=== PATIENT | female | born 1995 | race Caucasian/White ===

== ENCOUNTER 2016-07-30 10:41 | Emergency (ER) | payer MEDICARE, MEDICAID ==
--- NOTE | 2016-07-30 10:48 | ER Document Report ---
ED Medical Screen (RME) - General Stated Complaint: ABDOMINAL PAIN Information source: Patient Notes: Patient presents with lower mid abdominal pain for the past 3 days. Patient also reports difficulty with urination. Patient does report some dysuria. Patient additionally reports left lower back pain. hx: PTSD, depression, bipolar, cholecystectomy, asthma I have greeted and performed a rapid initial assessment of this patient. A comprehensive ED assessment and evaluation of the patient, analysis of test results and completion of the medical decision making process will be conducted by additional ED providers. TRAVEL OUTSIDE OF THE [place] IN LAST 30 DAYS: No - Related Data Allergies/Adverse Reactions: bupropion HCl [From Wellbutrin] Allergy (Verified 07/30/16 10:48) VOMITING divalproex sodium [From Depakote] Allergy (Verified 07/30/16 10:48) VOMITING haloperidol [From Haldol] Allergy (Verified 07/30/16 10:48) Distonic Reaction olanzapine [From Zyprexa] Allergy (Verified 07/30/16 10:48) Rash topiramate [From Topamax] Allergy (Verified 07/30/16 10:48) Speech problems, drooling Past Medical History - Social History Family history: Reviewed & Not Pertinent Pulmonary Medical History: Reports: Hx Asthma Denies: Hx Tuberculosis Renal/ Medical History: Reports: Hx Kidney Stones, Hx Ovarian Cysts Musculoskeltal Medical History: Denies Hx Arthritis Psychiatric Medical History: Reports: Hx Anxiety, Hx Bipolar Disorder, Hx Depression, Hx Personality Disorder, Hx Post Traumatic Stress Disorder Past Surgical History: Reports: Hx Section - 04/24/15, Hx Cholecystectomy, Hx Gynecologic Surgery - right ovary removed 09/03/13 - Immunizations Immunizations up to date: Yes Hx Diphtheria, Pertussis, Tetanus Vaccination: Yes - unknown Physical Exam - Vital signs Vitals: Temp Pulse Resp BP Pulse Ox 98.5 F 100 16 124/65 96 07/30/16 10:45 07/30/16 10:45 07/30/16 10:45 07/30/16 10:45 07/30/16 10:45 - Back Back: Tender - left lower back Course - Vital Signs Vital signs: Temp Pulse Resp BP Pulse Ox 98.5 F 100 16 124/65 96 07/30/16 10:45 07/30/16 10:45 07/30/16 10:45 07/30/16 10:45 07/30/16 10:45
[2016-07-30 11:40] LABS: APPEARANCE,URINE CLOUDY
[2016-07-30 11:41] LABS: BILIRUBIN,URINE NEGATIVE (NEGATIVE); GLUCOSE, URINE NEGATIVE (NEGATIVE); KETONES,URINE NEGATIVE (NEGATIVE); LEUKOCYTE ESTERASE,URINE TRACE (NEGATIVE); NITRITE,URINE NEGATIVE (NEGATIVE); PROTEIN,URINE 30 mg/dL (NEGATIVE); URINE SPECIFIC GRAVITY 1.018; UROBILINOGEN,URINE NEGATIVE mg/dL (<2.0)
--- NOTE | 2016-07-30 13:11 | ER Document Report ---
ED GI/ - General Chief Complaint: Lower Abdominal Pain Stated Complaint: ABDOMINAL PAIN Notes: Patient is a 18-year-old female presents emergency Department complaining of 3 days of bilateral lower pelvic pain. Patient states that she does have a history of ovarian cysts as well as kidney stones. She states that initially it felt like if cyst and ruptured but now she states that it feels more like a kidney stone passing. She denies any nausea, vomiting, constipation or diarrhea. Denies any vaginal discharge, vaginal bleeding. Patient denies that she can be because she is in a monogamous relationship with a woman. She does admit to pyuria and occasional hematuria over the past 2 days. Past medical history significant for kidney stones, depression, anxiety, PTSD, bipolar, ovarian cysts Past surgical history significant for right nephrectomy, , cholecystectomy Social history significant for social tobacco use, social alcohol use. Allergies to Depakote, Topamax, Zyprexa and Wellbutrin TRAVEL OUTSIDE OF THE [place] IN LAST 30 DAYS: No - Related Data Allergies/Adverse Reactions: bupropion HCl [From Wellbutrin] Allergy (Verified 07/30/16 10:48) VOMITING divalproex sodium [From Depakote] Allergy (Verified 07/30/16 10:48) VOMITING haloperidol [From Haldol] Allergy (Verified 07/30/16 10:48) Distonic Reaction olanzapine [From Zyprexa] Allergy (Verified 07/30/16 10:48) Rash topiramate [From Topamax] Allergy (Verified 07/30/16 10:48) Speech problems, drooling Past Medical History - General Information source: Patient - Social History Smoking Status: Never Smoker Family History: Reviewed & Not Pertinent, CAD, DM Pulmonary Medical History: Reports: Hx Asthma Denies: Hx Tuberculosis Renal/ Medical History: Reports: Hx Kidney Stones, Hx Ovarian Cysts. Denies: Hx Peritoneal Dialysis Musculoskeltal Medical History: Denies Hx Arthritis Psychiatric Medical History: Reports: Hx Anxiety, Hx Bipolar Disorder, Hx Depression, Hx Personality Disorder, Hx Post Traumatic Stress Disorder Past Surgical History: Reports: Hx Section - 04/24/15, Hx Cholecystectomy, Hx Gynecologic Surgery - right ovary removed 09/03/13 - Immunizations Immunizations up to date: Yes Hx Diphtheria, Pertussis, Tetanus Vaccination: Yes - unknown Review of Systems - Review of Systems Constitutional: No symptoms reported EENT: No symptoms reported Cardiovascular: No symptoms reported Respiratory: No symptoms reported Gastrointestinal: See HPI Genitourinary: See HPI Female Genitourinary: No symptoms reported Musculoskeletal: No symptoms reported Skin: No symptoms reported Hematologic/Lymphatic: No symptoms reported Neurological/Psychological: No symptoms reported Physical Exam - Vital signs Vitals: Temp Pulse Resp BP Pulse Ox 98.5 F 100 16 124/65 96 07/30/16 10:45 07/30/16 10:45 07/30/16 10:45 07/30/16 10:45 07/30/16 10:45 - Notes Notes: PHYSICAL EXAM GENERAL: Alert, interacts well. HEAD: Normocephalic, atraumatic. LUNGS: Clear to auscultation bilaterally, no wheezes, rales, or rhonchi. No respiratory distress. HEART: Regular rate and rhythm. No murmurs, gallops, or rubs. ABDOMEN: Obese, Soft, nondistended. Tenderness to palpation of the left lower quadrant. No CVA tenderness. No guarding, rebound, or rigidity.. Bowel sounds present in all 4 quadrants. EXTREMITIES: Moves all 4 extremities spontaneously. No edema, radial and dorsalis pedis pulses 2/4 bilaterally. No cyanosis. NEUROLOGICAL: Alert and oriented x3. Normal speech. PSYCH: Normal affect, normal mood. SKIN: Warm, dry, normal turgor. No rashes or lesions noted. Course - Re-evaluation Re-evalutation: 07/30/16 17:08 patient is a 21 year old events to the emergency department with left flank pain for the past 3 days. Patient has no known history of kidney stones. Limited CT for renal protocol reveals a 7.4 mm obstructing stone located at the left ureteral vesicular junction with hydroureter and hydronephrosis. Labs do not reveal any evidence of acute kidney injury. Patient's urine does show trace leuk esterase J do not feel is related to UTI but will discharge patient home on Cipro for prophylactic purposes given her stone and hydroureter. Patient is instructed to follow-up with urology in 1-2 days. - Vital Signs Vital signs: Temp Pulse Resp BP Pulse Ox 98.6 F 94 18 108/75 97 07/30/16 16:55 07/30/16 16:55 07/30/16 16:55 07/30/16 16:55 07/30/16 16:55 - Laboratory Result Diagrams: 07/30/16 15:55 07/30/16 15:55 Laboratory results interpreted by me: 07/30/16 07/30/16 07/30/16 11:20 15:55 15:55 WBC 13.8 H MCH 26.8 L RDW 15.4 H Absolute Neutrophils 9.1 H AST 64 H ALT 65 H Urine Protein 30 H Urine Blood SMALL H Ur Leukocyte Esterase TRACE H - Diagnostic Test Radiology reviewed: Image reviewed, Reports reviewed Discharge - Discharge Clinical Impression: Kidney stone Condition: Good Disposition: HOME, SELF-CARE Instructions: Ciprofloxacin ([facility]) Additional Instructions: KIDNEY STONE: You are passing or have passed a kidney stone. These stones are usually due to increased calcium or uric acid concentrations in your urine. Stones within the kidney itself are not painful. The pain occurs as the stone leaves the kidney to pass down the long tube, called the ureter, leading to the bladder. If the stone is small, it will usually pass by itself. Most patients can pass the stone at home. You will usually receive medications for pain, nausea or vomiting, and sometimes a medication to assist in passing the kidney stone. However, if the pain is very severe or if vomiting prevents you from taking oral pain medications, you may need to return for further treatment. Drink three or four quarts of fluids per day. You will be given pain medication (if needed) and urine strainers. Strain all your urine to see if the stone passes. If your doctor has asked you to bring the stone in for analysis, return with the stone once it has passed. Return if pain or vomiting become severe, if you develop a high fever, if you are unable to pass your urine, or if other unusual symptoms occur. TORADOL INJECTION: You have been given an injection of ketorolac tromethamine (Toradol). This is an excellent, safe drug for pain control. It also has potent antiinflammatory action. You should have significant pain relief within about one hour. Toradol is not addicting and is non-sedating. It does not interfere with driving or work. Call or return if you develop itching, hives, shortness of breath, or rash. PAIN MEDICATION INJECTION: You have received an injection of a pain medication. You should experience significant pain relief within 45 minutes. This drug is a narcotic - - it will impair your judgement, slow your reaction time and make you sleepy ( as well as relieve your pain). Narcotics also can cause nausea. You should not drive, work with machinery, or perform any task requiring mental alertness until all effects of the medication are gone -- six to eight hours. Do not take any alcohol, or sedatives, and do not take any other medication without checking with your physician. ANTINAUSEA MEDICATION: You have been given a medication to suppress nausea and vomiting. This type of medication can be given as a shot, pill, or suppository. It will usually last for many hours. Pills and shots usually last six to eight hours, suppositories last about 12 hours. For the typical illness, only one or two doses of the medication may be necessary. Mild lightheadedness may occur. This type of medicine can cause drowsiness. Do not drive or operate dangerous machinery while under its influence. Do not mix with alcohol. See your doctor at once if you have muscle spasms or tightness, or uncontrollable motions (particularly of the neck, mouth, or jaw). Persistent vomiting or severe lightheadedness should also be evaluated by the physician. ORAL NARCOTIC MEDICATION: You have been given a prescription for pain control. This medication is a narcotic. It's best taken with food, as nausea can result if taken on an empty stomach. Don't operate machinery or drive within six hours of taking this medication. Do not combine this medicine with alcohol, or with any medication which can cause sedation (such as cold tablets or sleeping pills) unless you get permission from the physician. Narcotics tend to cause constipation. If possible, drink plenty of fluids and eat a diet high in fiber and fruits. Please be aware that prescription narcotics also have the potential for abuse. People become addicted to these medications because of the general sense of wellbeing that they induce. This feeling along with a significant reduction in tension, anxiety, and aggression provides a stimulating seductive quality to these drugs. Once your pain is under control, we encourage you to discard your unused narcotics. FLOMAX (tamsulosin): Flomax is a medicine that shrinks the prostate gland. It helps relieve symptoms of benign prostatic hypertrophy, such as frequent urination, weak stream, and inadequate emptying. It has been shown to dilate the ureter (tube leading from the kidney to the bladder) and help in passing kidney stones Flomax usually causes no side effects. You may notice slight tiredness and dizziness for a few days. Some patients develop nasal congestion. Rarely, impotence can occur. If the symptoms are bothersome and don't improve with continued use, call your doctor. Contact your doctor or return if you have fainting spells, severe weakness or dizziness, shortness of breath, or rash. FOLLOW-UP CARE: If you have been referred to a physician for follow-up care, call the physician s office for an appointment as you were instructed or within the next two days. If you experience worsening or a significant change in your symptoms, notify the physician immediately or return to the Emergency Department at any time for re-evaluation. Prescriptions: Ciprofloxacin HCl [Cipro 500 mg Tablet] 500 mg PO BID #10 tablet Ondansetron [Zofran Odt 4 mg Tablet] 1 - 2 tab PO Q4H PRN #15 tab.rapdis PRN Reason: For Nausea/Vomiting Oxycodone HCl/Acetaminophen [Percocet 5-325 mg Tablet] 1 - 2 tab PO Q4H PRN #25 tablet PRN Reason: Tamsulosin HCl [Flomax 0.4 mg Cap.sr] 0.4 mg PO BID #10 cap.sr.24h Referrals: JAMES JARQUIN MD [ACTIVE STAFF] - Follow up in 3-5 days
[2016-07-30] MEDS ORDERED: OXYCODONE-ACETAMINOPHEN 5-325 MG TABLET PO ONE (15:03)
[2016-07-30 16:09] LABS: ABSOLUTE EOSINOPHILS # (AUTO) 0.4 10^3/uL (0.0-0.6); ABSOLUTE LYMPHOCYTES (AUTO) 3.5 10^3/uL (0.5-4.7); ABSOLUTE MONOCYTES (AUTO) 0.7 10^3/uL (0.1-1.4); ABSOLUTE NEUT (AUTO) 9.1 10^3/uL (1.7-8.2); BASOPHILS % (AUTO) 0.3 % (0-2); EOSINOPHILS % (AUTO) 3.2 % (0-6); HEMOGLOBIN 13.3 g/dL (12.0-15.5); HGB HCT DIFFERENCE -1.1; LYMPHOCYTES % (AUTO) 25.4 % (13-45); MEAN CORPUSCULAR HEMOGLOBIN 26.8 pg (27.0-33.4); MEAN CORPUSCULAR HGB CONC 32.5 g/dL (32.0-36.0); MEAN CORPUSCULAR VOLUME 82 fl (80-97); MONOCYTES % (AUTO) 4.8 % (3-13); RED BLOOD COUNT 4.98 10^6/uL (3.72-5.28); RED CELL DISTRIBUTION WIDTH 15.4 % (11.5-14.0); SEGMENTED NEUTROPHILS % (AUTO) 66.3 % (42-78); WHITE BLOOD COUNT 13.8 10^3/uL (4.0-10.5)
[2016-07-30 16:29] LABS: ALANINE AMINOTRANSFERASE 65 U/L (9-52); ALBUMIN 4.2 g/dL (3.5-5.0); ALKALINE PHOSPHATASE 88 U/L (38-126); ANION GAP 13 (5-19); ASPARTATE AMINO TRANSFERASE 64 U/L (14-36); BILIRUBIN,TOTAL 0.6 mg/dL (0.2-1.3); BLOOD UREA NITROGEN 12 mg/dL (7-20); CALCIUM 10.1 mg/dL (8.4-10.2); CARBON DIOXIDE 28 mmol/L (22-30); CHLORIDE 104 mmol/L (98-107); CREATININE RESULT 0.66 mg/dL (0.52-1.25); GLUCOSE 110 mg/dL (75-110); SODIUM 144.8 mmol/L (137-145)
[2016-07-30] MEDS ORDERED: NORMAL SALINE 1000 ML 1,000 ML IV PRN (16:47)
[2016-07-30 16:57] VITALS: BP 108/75
[2016-07-30] MEDS ORDERED: CIPROFLOXACIN HCL 500 MG TABLET PO ONE (17:12)
== END 2016-07-30 17:50 | disposition home or self-care (01) ==
LOC: ER 10:41
DX: N13.2 Hydronephrosis with renal and ureteral calculous obstruction (principal); R31.9 Hematuria, unspecified; R10.2 Pelvic and perineal pain; R10.814 Left lower quadrant abdominal tenderness; J45.909 Unspecified asthma, uncomplicated; Z90.5 Acquired absence of kidney; Z90.49 Acquired absence of other specified parts of digestive tract; Z88.8 Allergy status to other drugs, medicaments and biological substances; Z87.42 Personal history of other diseases of the female genital tract
CPT/HCPCS: 99284; 96360; 36415; 85025; 81025; 80053; 81001; 76380; A9270 ×2; J7030

== ENCOUNTER 2016-08-02 14:31 | Emergency (ER) | payer MEDICAID, MEDICARE ==
--- NOTE | 2016-08-02 14:38 | ER Document Report ---
ED Medical Screen (RME) - General Stated Complaint: FLANK PAIN Mode of Arrival: Wheelchair Information source: Patient Notes: Patient complains of left lower pelvic and left flank pain. Patient reports recently being diagnosed with a kidney stone on the left side. hx; depression, bipolar, cholecystectomy, . I have greeted and performed a rapid initial assessment of this patient. A comprehensive ED assessment and evaluation of the patient, analysis of test results and completion of the medical decision making process will be conducted by additional ED providers. TRAVEL OUTSIDE OF THE [place] IN LAST 30 DAYS: No - Related Data Allergies/Adverse Reactions: bupropion HCl [From Wellbutrin] Allergy (Verified 07/30/16 10:48) VOMITING divalproex sodium [From Depakote] Allergy (Verified 07/30/16 10:48) VOMITING haloperidol [From Haldol] Allergy (Verified 07/30/16 10:48) Distonic Reaction olanzapine [From Zyprexa] Allergy (Verified 07/30/16 10:48) Rash topiramate [From Topamax] Allergy (Verified 07/30/16 10:48) Speech problems, drooling Past Medical History - Social History Family history: Reviewed & Not Pertinent Pulmonary Medical History: Reports: Hx Asthma Denies: Hx Tuberculosis Renal/ Medical History: Reports: Hx Kidney Stones, Hx Ovarian Cysts. Denies: Hx Peritoneal Dialysis Musculoskeltal Medical History: Denies Hx Arthritis Psychiatric Medical History: Reports: Hx Anxiety, Hx Bipolar Disorder, Hx Depression, Hx Personality Disorder, Hx Post Traumatic Stress Disorder Past Surgical History: Reports: Hx Section - 04/24/15, Hx Cholecystectomy, Hx Gynecologic Surgery - right ovary removed 09/03/13 - Immunizations Immunizations up to date: Yes Hx Diphtheria, Pertussis, Tetanus Vaccination: Yes - unknown Physical Exam - Abdominal Tenderness: Tender - Left lower pelvic
[2016-08-02] MEDS ORDERED: ONDANSETRON 4 MG TAB.RAPDIS PO ONE (14:51)
[2016-08-02 15:08] LABS: ABSOLUTE EOSINOPHILS # (AUTO) 0.5 10^3/uL (0.0-0.6); ABSOLUTE MONOCYTES (AUTO) 0.6 10^3/uL (0.1-1.4); ABSOLUTE NEUT (AUTO) 5.5 10^3/uL (1.7-8.2); BASOPHILS % (AUTO) 0.3 % (0-2); EOSINOPHILS % (AUTO) 4.7 % (0-6); HEMATOCRIT 35.7 % (36.0-47.0); HEMOGLOBIN 11.6 g/dL (12.0-15.5); HGB HCT DIFFERENCE -0.9; LYMPHOCYTES % (AUTO) 37.8 % (13-45); MEAN CORPUSCULAR HEMOGLOBIN 27.1 pg (27.0-33.4); MEAN CORPUSCULAR HGB CONC 32.6 g/dL (32.0-36.0); MEAN CORPUSCULAR VOLUME 83 fl (80-97); MONOCYTES % (AUTO) 5.4 % (3-13); RED CELL DISTRIBUTION WIDTH 15.2 % (11.5-14.0); SEGMENTED NEUTROPHILS % (AUTO) 51.8 % (42-78); WHITE BLOOD COUNT 10.6 10^3/uL (4.0-10.5)
[2016-08-02 15:23] LABS: APPEARANCE,URINE SLIGHTLY-CLOUDY; BILIRUBIN,URINE NEGATIVE (NEGATIVE); GLUCOSE, URINE NEGATIVE (NEGATIVE); KETONES,URINE NEGATIVE (NEGATIVE); LEUKOCYTE ESTERASE,URINE TRACE (NEGATIVE); NITRITE,URINE NEGATIVE (NEGATIVE); PROTEIN,URINE NEGATIVE (NEGATIVE); URINE SPECIFIC GRAVITY 1.022; UROBILINOGEN,URINE NEGATIVE mg/dL (<2.0)
--- NOTE | 2016-08-02 15:32 | ER Document Report ---
ED GI/ - General Time seen by provider: 15:45 Mode of Arrival: Wheelchair Information source: Patient, [facility] Records TRAVEL OUTSIDE OF THE [place] IN LAST 30 DAYS: No - HPI Patient complains to provider of: Flank pain Onset: Other - see HPI notes Location: LLQ, Left flank <VIRGIL SANDOVAL - Last Filed: 08/02/16 17:27> <STEFFEN LONG - Last Filed: 08/02/16 21:24> - General Chief Complaint: Flank Pain Stated Complaint: FLANK PAIN Notes: Patient is a 21 year old female presenting to the emergency department via EMS for continued flank pain. Patient was seen in the ED on 07/30/16 and was found to have a 7.4 mm kidney stone. Patient states she is having continued pain and that her medications that were given to her are locked in a storage unit and she is unable to retrieve them until the next month; patient states she is in the process of moving. Patient has not had a follow-up with another physician since Friday's visit to the ED. Patient states she is not able to go to [place] to see a urologist. Patient states her pain is the same but it is a little lower in her groin. Patient states she has not had a stone this large or bad in the past. (VIRGIL SANDOVAL) - Related Data Allergies/Adverse Reactions: bupropion HCl [From Wellbutrin] Allergy (Verified 08/02/16 14:44) VOMITING divalproex sodium [From Depakote] Allergy (Verified 08/02/16 14:44) VOMITING haloperidol [From Haldol] Allergy (Verified 08/02/16 14:44) Distonic Reaction olanzapine [From Zyprexa] Allergy (Verified 08/02/16 14:44) Rash topiramate [From Topamax] Allergy (Verified 08/02/16 14:44) Speech problems, drooling Past Medical History - General Information source: Patient - Social History Smoking Status: Unknown if Ever Smoked Frequency of alcohol use: Occasional Drug Abuse: Marijuana Family History: Reviewed & Not Pertinent, CAD, DM Patient has suicidal ideation: No Patient has homicidal ideation: No Pulmonary Medical History: Reports: Hx Asthma Denies: Hx Tuberculosis Renal/ Medical History: Reports: Hx Kidney Stones, Hx Ovarian Cysts. Denies: Hx Peritoneal Dialysis Musculoskeltal Medical History: Denies Hx Arthritis Psychiatric Medical History: Reports: Hx Anxiety, Hx Bipolar Disorder, Hx Depression, Hx Personality Disorder, Hx Post Traumatic Stress Disorder Past Surgical History: Reports: Hx Section - 04/24/15, Hx Cholecystectomy, Hx Gynecologic Surgery - right ovary removed 09/03/13 - Immunizations Immunizations up to date: Yes Hx Diphtheria, Pertussis, Tetanus Vaccination: Yes - unknown <VIRGIL SANDOVAL - Last Filed: 08/02/16 17:27> Review of Systems - Review of Systems Constitutional: No symptoms reported EENT: No symptoms reported Cardiovascular: No symptoms reported Respiratory: No symptoms reported Gastrointestinal: See HPI, Abdominal pain Genitourinary: See HPI, Flank pain Female Genitourinary: No symptoms reported Musculoskeletal: No symptoms reported Skin: No symptoms reported Hematologic/Lymphatic: No symptoms reported Neurological/Psychological: No symptoms reported -: Yes All other systems reviewed and negative <VIRGIL SANDOVAL Last Filed: 08/02/16 17:27> Physical Exam - Vital signs Interpretation: Normal - General General appearance: Appears well, Alert - HEENT Head: Normocephalic, Atraumatic Eyes: Normal Pupils: PERRL - Respiratory Respiratory status: No respiratory distress Chest status: Nontender Breath sounds: Normal Chest palpation: Normal - Cardiovascular Rhythm: Regular Heart sounds: Normal auscultation Murmur: No - Abdominal Inspection: Obese Distension: No distension Bowel sounds: Normal Tenderness: Tender - LLQ tenderness to palpation Organomegaly: No organomegaly - Back Back: Normal, Tender - left flank tenderness to palpation - Extremities General upper extremity: Normal inspection, Normal ROM, Normal strength General lower extremity: Normal inspection, Normal ROM, Normal strength - Neurological Neuro grossly intact: Yes Cognition: Normal Orientation: AAOx4 Hamzah Coma Scale Eye Opening: Spontaneous Hamzah Coma Scale Verbal: Oriented [place] Coma Scale Motor: Obeys Commands [place] Coma Scale Total: 15 Speech: Normal - Psychological Associated symptoms: Normal affect, Normal mood - Skin Skin Temperature: Warm Skin Moisture: Dry <VIRGIL SANDOVAL - Last Filed: 08/02/16 17:27> Course - Laboratory Result Diagrams: 08/02/16 14:55 08/02/16 14:55 - Consults [facility] Time consulted: 17:04 <VIRGIL SANDOVAL - Last Filed: 08/02/16 17:27> - Laboratory Result Diagrams: 08/02/16 14:55 08/02/16 14:55 - Diagnostic Test Radiology reviewed: Reports reviewed <STEFFEN LONG - Last Filed: 08/02/16 21:24> - Re-evaluation Re-evalutation: 08/02/16 Patient with recently diagnosed kidney stone. Patient doesn't not have any more pain medication or nausea medication or Flomax. Initially discuss transferring to [facility] see if urology could help with her pain control. Patient did not want to wait for transfer and would prefer to go home with pain medication. Blood work is improving. No evidence for renal insufficiency. Stable for discharge. Patient has been given follow-up information at [facility] urology clinic in [place]. Stable for discharge. Agrees with plan. ( STEFFEN LONG) - Vital Signs Vital signs: Temp Pulse Resp BP Pulse Ox 98.0 F 80 18 128/76 H 98 08/02/16 14:43 08/02/16 18:16 08/02/16 18:16 08/02/16 18:16 08/02/16 18:16 (VIRGIL SANDOVAL) (STEFFEN LONG) - Laboratory Laboratory results interpreted by ny: 08/02/16 08/02/16 08/02/16 14:55 14:55 14:55 WBC 10.6 H Hgb 11.6 L Hct 35.7 L RDW 15.2 H Glucose 135 H Urine Blood MODERATE H Ur Leukocyte Esterase TRACE H (VIRGIL SANDOVAL) (STEFFEN LONG) - Consults [facility] Reason for consultation: 08/02/16 17:04 Called [facility] for possible treatment or follow-up options for patient, will call back. (VIRGIL SANDOVAL) Discharge <VIRGIL SANDOVAL - Last Filed: 08/02/16 17:27> <STEFFEN LONG - Last Filed: 08/02/16 21:24> - Discharge Clinical Impression: Kidney stone, UTI (urinary tract infection) Condition: Stable Disposition: HOME, SELF-CARE Instructions: Urinary Tract Infection ([facility]), Kidney Stone ([facility]) Additional Instructions: Please follow-up with the [facility] urology clinic in [place]. Please see attached sheet for contact information. Prescriptions: Cefdinir 300 mg PO BID #20 capsule Ondansetron [Zofran Odt 4 mg Tablet] 1 - 2 tab PO Q4H PRN #30 tab.rapdis PRN Reason: For Nausea/Vomiting Oxycodone HCl/Acetaminophen [Percocet 5-325 mg Tablet] 1 - 2 tab PO Q4H PRN #30 tablet PRN Reason: Forms: Return to Work Referrals: RADHA JESUS MD [Primary Care Provider] - Follow up as needed Scribe Attestation: 08/02/16 21:24 I personally performed the services described in the documentation, reviewed and edited the documentation which was dictated to the scribe in my presence, and it accurately records my words and actions. (STEFFEN LONG) Scribe Documentation - Scribe Written by Scribe:: Virgil Sandoval 08/02/16 16:40 acting as scribe for :: Vish <VIRGIL SANDOVAL - Last Filed: 08/02/16 17:27>
[2016-08-02 15:37] LABS: ALANINE AMINOTRANSFERASE 43 U/L (9-52); ALBUMIN 3.9 g/dL (3.5-5.0); ALKALINE PHOSPHATASE 64 U/L (38-126); ANION GAP 12 (5-19); ASPARTATE AMINO TRANSFERASE 30 U/L (14-36); BILIRUBIN,TOTAL 0.3 mg/dL (0.2-1.3); BLOOD UREA NITROGEN 12 mg/dL (7-20); CALCIUM 9.7 mg/dL (8.4-10.2); CARBON DIOXIDE 24 mmol/L (22-30); CHLORIDE 104 mmol/L (98-107); CREATININE RESULT 0.66 mg/dL (0.52-1.25); GLUCOSE 135 mg/dL (75-110); POTASSIUM 3.8 mmol/L (3.6-5.0); SODIUM 140.4 mmol/L (137-145); TOTAL PROTEIN 6.7 g/dL (6.3-8.2)
[2016-08-02 15:45] LABS: WBC,URINE RARE /HPF
[2016-08-02 15:46] LABS: BACTERIA,URINE TRACE /HPF
[2016-08-02] MEDS ORDERED: HYDROMORPHONE HCL INJ/PF 2 MG/ML AMPULE IV ONE (15:46)
[2016-08-02] MEDS ORDERED: DIAZEPAM 2 MG TABLET PO ONE (17:55)
[2016-08-02] MEDS ORDERED: HYDROCODONE/ACETAMINOPHEN 5-325 MG 6 TAB/DSPK PO PRN (18:00)
[2016-08-02 18:17] VITALS: BP 128/76
== END 2016-08-02 18:16 | disposition home or self-care (01) ==
LOC: ER 14:31
DX: N20.0 Calculus of kidney (principal); N39.0 Urinary tract infection, site not specified; Z88.8 Allergy status to other drugs, medicaments and biological substances; Z88.6 Allergy status to analgesic agent; J45.909 Unspecified asthma, uncomplicated; Z87.42 Personal history of other diseases of the female genital tract; Z90.49 Acquired absence of other specified parts of digestive tract
CPT/HCPCS: 99284; 96374; 36415; 84703; 85025; 80053; 81001; A9270; J1170; S0119

== ENCOUNTER → 2016-08-27 | Outpatient (CLI) | payer MEDICARE, MEDICAID | LOC: OD 10:27 | PROVIDERS: ATTEND Nurse Practitioner Acute Care | DX: S39.012A Strain of muscle, fascia and tendon of lower back, initial encounter (principal); X58.XXXA Exposure to other specified factors, initial encounter | CPT/HCPCS: 72110 ==

== ENCOUNTER 2016-08-29 09:47 | Emergency (ER) | payer MEDICARE, MEDICAID ==
[2016-08-29 10:11] LABS: ABSOLUTE EOSINOPHILS # (AUTO) 0.2 10^3/uL (0.0-0.6); ABSOLUTE LYMPHOCYTES (AUTO) 3.3 10^3/uL (0.5-4.7); ABSOLUTE MONOCYTES (AUTO) 0.6 10^3/uL (0.1-1.4); ABSOLUTE NEUT (AUTO) 6.5 10^3/uL (1.7-8.2); BASOPHILS % (AUTO) 0.4 % (0-2); HEMATOCRIT 41.3 % (36.0-47.0); HEMOGLOBIN 13.4 g/dL (12.0-15.5); HGB HCT DIFFERENCE -1.1; LYMPHOCYTES % (AUTO) 30.9 % (13-45); MEAN CORPUSCULAR HEMOGLOBIN 27.1 pg (27.0-33.4); MEAN CORPUSCULAR HGB CONC 32.5 g/dL (32.0-36.0); MEAN CORPUSCULAR VOLUME 83 fl (80-97); MONOCYTES % (AUTO) 5.5 % (3-13); RED BLOOD COUNT 4.97 10^6/uL (3.72-5.28); RED CELL DISTRIBUTION WIDTH 15.2 % (11.5-14.0); SEGMENTED NEUTROPHILS % (AUTO) 61.2 % (42-78); WHITE BLOOD COUNT 10.6 10^3/uL (4.0-10.5)
[2016-08-29 10:33] LABS: ALANINE AMINOTRANSFERASE 63 U/L (9-52); ALBUMIN 4.8 g/dL (3.5-5.0); ALKALINE PHOSPHATASE 93 U/L (38-126); ANION GAP 17 (5-19); ASPARTATE AMINO TRANSFERASE 71 U/L (14-36); BILIRUBIN,DIRECT 0.2 mg/dL (0.0-0.4); BILIRUBIN,TOTAL 0.6 mg/dL (0.2-1.3); BLOOD UREA NITROGEN 17 mg/dL (7-20); CALCIUM 10.4 mg/dL (8.4-10.2); CARBON DIOXIDE 24 mmol/L (22-30); CHLORIDE 108 mmol/L (98-107); CREATINE KINASE 72 U/L (30-135); CREATININE RESULT 0.67 mg/dL (0.52-1.25); GLUCOSE 95 mg/dL (75-110); POTASSIUM 3.9 mmol/L (3.6-5.0); SODIUM 148.7 mmol/L (137-145); TOTAL PROTEIN 8.2 g/dL (6.3-8.2)
[2016-08-29] MEDS ORDERED: KETOROLAC TROMETHAMINE INJ/PF 30 MG/1 ML SDV IV ONE (10:41)
[2016-08-29 10:47] LABS: CREATINE KINASE MB 1.37 ng/mL (<4.55)
--- NOTE | 2016-08-29 10:47 | ER Document Report ---
ED General - General Chief Complaint: Back Pain Stated Complaint: BACK PAIN Mode of Arrival: Ambulatory Information source: Patient Notes: This is a 21-year-old female with a history of anxiety depression, kidney stones , and chronic pain who presents for evaluation of left-sided lower back pain. She states that she was helping to move furniture last week and felt something "pull" in her back. Since that time she has had lower back pain. At times the pain radiates posteriorly down her left leg through her mid thigh. She denies any numbness, weakness, paresthesias. She denies any trouble with bowel or bladder control. Of note she was seen here last month for left flank pain and diagnosed with a 7.4 mm left UVJ obstructing stone. She had instructions to follow up with urology, however she tells me that she was able to pass the stone at home and did not need urology follow-up. She states that this pain today is different from the kidney stone pain. She denies any dysuria, fevers, chills, nausea, vomiting. She states that she was here at the hospital visiting a family member upstairs when she had an increase in her lower back pain which prompted a syncopal episode. She states that she has passed out in the past secondary to pain. After she had the brief syncopal episode she was referred to the ER for further management. She denies any chest pain or palpitations. No shortness of breath. She states she feels fine with the exception of lower back pain, which as noted has been present for the past week. TRAVEL OUTSIDE OF THE [place] IN LAST 30 DAYS: No - Related Data Allergies/Adverse Reactions: bupropion HCl [From Wellbutrin] Allergy (Verified 08/02/16 14:44) VOMITING divalproex sodium [From Depakote] Allergy (Verified 08/02/16 14:44) VOMITING haloperidol [From Haldol] Allergy (Verified 08/02/16 14:44) Distonic Reaction olanzapine [From Zyprexa] Allergy (Verified 08/02/16 14:44) Rash topiramate [From Topamax] Allergy (Verified 08/02/16 14:44) Speech problems, drooling Past Medical History - General Information source: Patient, [facility] Records - Social History Smoking Status: Unknown if Ever Smoked Family History: Reviewed & Not Pertinent, CAD, DM Pulmonary Medical History: Reports: Hx Asthma Denies: Hx Tuberculosis Renal/ Medical History: Reports: Hx Kidney Stones, Hx Ovarian Cysts. Denies: Hx Peritoneal Dialysis Musculoskeltal Medical History: Denies Hx Arthritis Psychiatric Medical History: Reports: Hx Anxiety, Hx Bipolar Disorder, Hx Depression, Hx Personality Disorder, Hx Post Traumatic Stress Disorder Past Surgical History: Reports: Hx Section - 04/24/15, Hx Cholecystectomy, Hx Gynecologic Surgery - right ovary removed 09/03/13 - Immunizations Immunizations up to date: Yes Hx Diphtheria, Pertussis, Tetanus Vaccination: Yes - unknown Review of Systems - Review of Systems Notes: REVIEW OF SYSTEMS: CONSTITUTIONAL : Denies fever, chills, or sweats. Denies recent illness. EENT: Denies eye, ear, throat, or mouth pain or symptoms. Denies nasal or sinus congestion. CARDIOVASCULAR: Denies chest pain. RESPIRATORY: Denies cough, cold, or chest congestion. Denies shortness of breath, difficulty breathing, or wheezing. GASTROINTESTINAL: Denies abdominal pain. Denies nausea, vomiting, or diarrhea. GENITOURINARY: Denies difficulty urinating, painful urination, burning, frequency, or blood in urine. She does state that her urine had a funny odor this morning. FEMALE GENITOURINARY: Denies vaginal bleeding, abnormal or irregular periods. LMP: 08/16/2016 MUSCULOSKELETAL: As per history of present illness SKIN: Denies rash or skin lesions. HEMATOLOGIC : Denies easy bruising or bleeding. LYMPHATIC: Denies swollen, enlarged glands. NEUROLOGICAL: Syncopal episode as per history of present illness . Denies headache. Denies weakness or paralysis or loss of use of either side. Denies problems with gait or speech. Denies sensory or motor loss. PSYCHIATRIC: Denies anxiety or stress or depression. ALL OTHER SYSTEMS REVIEWED AND NEGATIVE. Physical Exam - Vital signs Vitals: Temp Pulse Resp BP Pulse Ox 98.5 F 95 20 119/71 99 08/29/16 10:00 08/29/16 10:00 08/29/16 10:00 08/29/16 10:08/29/16 10:00 - Notes Notes: PHYSICAL EXAMINATION: GENERAL: Well-appearing, well-nourished and obese adult female who is pleasant and conversant and in no acute distress. HEAD: Atraumatic, normocephalic. EYES: Pupils equal round and reactive to light, extraocular movements intact, sclera anicteric, conjunctiva are normal. ENT: nares patent, oropharynx clear without exudates. Moist mucous membranes. NECK: Normal range of motion, supple without lymphadenopathy LUNGS: Breath sounds clear to auscultation bilaterally and equal. No wheezes rales or rhonchi. HEART: Regular rate and rhythm without murmurs ABDOMEN: Soft, obese, nontender, normoactive bowel sounds. No guarding, no rebound. No masses appreciated. EXTREMITIES: Normal range of motion, no pitting or edema. No cyanosis. NEUROLOGICAL: Cranial nerves grossly intact. Normal speech, normal gait. Motor strength +5/5 bilateral upper and lower extremities. Sensation intact. Negative straight leg raise bilaterally. PSYCH: Normal mood, normal affect. SKIN: Warm, Dry, normal turgor, no rashes or lesions noted. Course - Re-evaluation Re-evalutation: 08/29/16 11:26 Patient is resting comfortably and states that she feels better. Her labs were reviewed. Her kidney function is within normal limits and her urinalysis shows no evidence of UTI or hematuria. I do not feel that the symptoms today are secondary to kidney stone. She is neurologically intact and has no clinical suspicion for cauda equina at this time. She has a history of prior syncope secondary to pain. Her EKG is unchanged and her vital signs are stable. She is instructed to follow up with her primary care physician for further syncope workup. Will discharge on nonnarcotic pain medication. Strict return precautions were discussed and she is comfortable with the plan. - Vital Signs Vital signs: Temp Pulse Resp BP Pulse Ox 98.5 F 95 20 119/71 99 08/29/16 10:00 08/29/16 10:00 08/29/16 10:00 08/29/16 10:00 08/29/16 10:00 - Laboratory Result Diagrams: 08/29/16 10:03 08/29/16 10:03 Laboratory results interpreted by me: 08/29/16 08/29/16 08/29/16 10:03 10:03 10:52 WBC 10.6 H RDW 15.2 H Sodium 148.7 H Chloride 108 H Calcium 10.4 H AST 71 H ALT 63 H Urine Ascorbic Acid 40 H - EKG Interpretation by Me Additional EKG results interpreted by me: 08/29/16 11:14 EKG at 1103 demonstrates normal sinus rhythm with a rate of 85 bpm. QRS and QT intervals are normal. There are no ST segment elevations or depressions. There is no significant change from prior EKG. Discharge - Discharge Clinical Impression: Lumbar strain Qualifiers: Encounter type: initial encounter Qualified Code(s): S39.012A - Strain of muscle, fascia and tendon of lower back, initial encounter Episode of syncope Qualifiers: Syncope type: unspecified Qualified Code(s): R55 - Syncope and collapse Condition: Stable Disposition: HOME, SELF-CARE Additional Instructions: LOW BACK PAIN: Three out of every four people will have an episode of disabling back pain during their lifetime. Most commonly the pain is due to straining of the muscles and ligaments in the low back. Usual treatment includes: (1) Rest on a firm surface. Avoid lying on your stomach. (2) Ice pack the painful area. After a few days, gentle heat may be used intermittently to relax the area, or ice packs can be continued. (3) Medication may be needed -- muscle relaxers and antiinflammatory medicines are commonly used. (4) As the back improves, exercises are prescribed to strengthen the back and abdominal muscles. Your doctor will advise you on the proper care for your back at each stage in your recovery. You may be better in a few days -- or healing may take several weeks. If new symptoms of a "herniated disc" (radiation of pain, numbness, or tingling down the back of the leg or weakness in the leg) occur, you should be re-examined. Further testing may be necessary. MUSCLE RELAXERS: Muscle relaxing medications are usually prescribed for acute muscle spasm or injury to the neck and back. They are often combined with antiinflammatory pain medication for increased relief. You may stop the muscle relaxer when the pain and stiffness have improved. Start the medication again if spasms recur. Muscle relaxers may cause drowsiness, especially with the first dose. Do not operate machinery or drive while under the effects of the medication. Most muscle relaxers last up to 24 hours. Do not combine the medication with alcohol. WARM PACKS: After approximately two days, apply gentle heat (such as a heating pad or hot water bottle) for about 20 to 30 minutes about every two hours -- at least four times daily. Warmth and elevation will help you make a more rapid recovery , and will ease the pain considerably. Do not use HOT heat, and never apply heat for longer than 30 minutes. The continuous heat can invisibly damage skin and muscles -- even when no burn is seen on the surface. Damaged muscles can make you MORE sore. Syncopal Episode Syncope (fainting or near-fainting) can occur from many different health problems. Or it can be a simple fainting spell requiring no treatment. It is safe for you to go home, but further evaluation will likely be necessary. Your work-up may include tests for internal bleeding, heart disease, medication problems, or near-strokes. Tests are not always required, however, depending on the nature of your problem. The warning signs of an impending faint include: dizziness, lightheadedness , nausea, hot flashes, tingling, and weakness. If this happens, lay down and put your feet up, then wait until all of these symptoms have passed before standing up again. If these episodes become recurrent, or if you develop chest pain, heart palpitations, mental confusion, blurred vision, or headache, then you should call the physician, or go to the emergency room. FOLLOW-UP CARE: If you have been referred to a physician for follow-up care, call the physician s office for an appointment as you were instructed or within the next two days. If you experience worsening or a significant change in your symptoms, notify the physician immediately or return to the Emergency Department at any time for re-evaluation. Prescriptions: Ibuprofen 800 mg PO TID #15 tablet Methocarbamol [Robaxin 750 mg Tablet] 750 mg PO Q6 #28 tablet Referrals: ROSIO DEL VALLE PA-C [Primary Care Provider] - Follow up as needed
[2016-08-29 10:55] LABS: TROPONIN I < 0.012 ng/mL
[2016-08-29 11:21] LABS: APPEARANCE,URINE SLIGHTLY-CLOUDY; BILIRUBIN,URINE NEGATIVE (NEGATIVE); GLUCOSE, URINE NEGATIVE (NEGATIVE); KETONES,URINE NEGATIVE (NEGATIVE); LEUKOCYTE ESTERASE,URINE NEGATIVE (NEGATIVE); NITRITE,URINE NEGATIVE (NEGATIVE); PROTEIN,URINE NEGATIVE (NEGATIVE); UROBILINOGEN,URINE NEGATIVE mg/dL (<2.0)
[2016-08-29 11:51] VITALS: BP 116/76
--- NOTE | 2016-08-29 13:17 | EKG REPORT ---
SEVERITY:- BORDERLINE ECG - SINUS RHYTHM BORDERLINE Q WAVES IN INFERIOR LEADS INFERIOR Q WAVES, PROBABLY NORMAL VARIATION : Confirmed by: Tanner Varela MD 29-Aug-2016 13:16:37
== END 2016-08-29 11:51 | disposition home or self-care (01) ==
LOC: ER 09:47
DX: S39.012A Strain of muscle, fascia and tendon of lower back, initial encounter (principal); X58.XXXA Exposure to other specified factors, initial encounter; Y93.89 Activity, other specified; R55 Syncope and collapse; J45.909 Unspecified asthma, uncomplicated; E66.9 Obesity, unspecified; Z87.442 Personal history of urinary calculi; Z88.8 Allergy status to other drugs, medicaments and biological substances
CPT/HCPCS: 93005; 99283; 96374; 36415; 82553; 82550; 85025; 81025; 80053; 81001; 84484; 93010; J1885

== ENCOUNTER 2016-08-30 10:43 | Emergency (ER) | payer MEDICARE, MEDICAID ==
--- NOTE | 2016-08-30 10:51 | ER Document Report ---
ED Medical Screen (RME) - General Stated Complaint: FALL;ANKLE INJURY Notes: Patient states she tripped on her stairs this morning injuring her right ankle and right foot. Is able to bear weight, but is painful. I have greeted and performed a rapid initial assessment of this patient. A comprehensive ED assessment and evaluation of the patient, analysis of test results and completion of the medical decision making process will be conducted by additional ED providers. TRAVEL OUTSIDE OF THE [place] IN LAST 30 DAYS: No - Related Data Allergies/Adverse Reactions: bupropion HCl [From Wellbutrin] Allergy (Verified 08/30/16 10:49) VOMITING divalproex sodium [From Depakote] Allergy (Verified 08/30/16 10:49) VOMITING haloperidol [From Haldol] Allergy (Verified 08/30/16 10:49) Distonic Reaction olanzapine [From Zyprexa] Allergy (Verified 08/30/16 10:49) Rash topiramate [From Topamax] Allergy (Verified 08/30/16 10:49) Speech problems, drooling Past Medical History - Social History Family history: Reviewed & Not Pertinent Pulmonary Medical History: Reports: Hx Asthma Denies: Hx Tuberculosis Renal/ Medical History: Reports: Hx Kidney Stones, Hx Ovarian Cysts. Denies: Hx Peritoneal Dialysis Musculoskeltal Medical History: Denies Hx Arthritis Psychiatric Medical History: Reports: Hx Anxiety, Hx Bipolar Disorder, Hx Depression, Hx Personality Disorder, Hx Post Traumatic Stress Disorder Past Surgical History: Reports: Hx Section - 04/24/15, Hx Cholecystectomy, Hx Gynecologic Surgery - right ovary removed 09/03/13 - Immunizations Immunizations up to date: Yes Hx Diphtheria, Pertussis, Tetanus Vaccination: Yes - unknown Physical Exam - Vital signs Vitals: Temp Pulse Resp BP Pulse Ox 98.6 F 100 18 121/84 99 08/30/16 10:49 08/30/16 10:49 08/30/16 10:49 08/30/16 10:49 08/30/16 10:49 - Extremities Notes: Tender lateral right ankle and foot, swelling or deformity noted. Course - Vital Signs Vital signs: Temp Pulse Resp BP Pulse Ox 98.6 F 100 18 121/84 99 08/30/16 10:49 08/30/16 10:49 08/30/16 10:49 08/30/16 10:49 08/30/16 10:49
--- NOTE | 2016-08-30 13:13 | ER Document Report ---
HPI - HPI Patient complains to provider of: twisted right ankle Onset: This morning Onset/Duration: Sudden Pain Level: 3 Context: 21-year-old female twisted her right ankle this morning going upstairs. She has pain inferior to the right malleolus and lateral foot. She is unable to bear weight due to pain - REPRODUCTIVE Reproductive: DENIES: : - DERM Skin Color: Normal Past Medical History - General Information source: Patient - Social History Smoking Status: Current Every Day Smoker Chew tobacco use (# tins/day): No Frequency of alcohol use: None Drug Abuse: None Lives with: Family Family History: Reviewed & Not Pertinent, CAD, DM Patient has suicidal ideation: No Patient has homicidal ideation: No Pulmonary Medical History: Reports: Hx Asthma Denies: Hx Tuberculosis Renal/ Medical History: Reports: Hx Kidney Stones, Hx Ovarian Cysts. Denies: Hx Peritoneal Dialysis Musculoskeltal Medical History: Denies Hx Arthritis Psychiatric Medical History: Reports: Hx Anxiety, Hx Bipolar Disorder, Hx Depression, Hx Personality Disorder, Hx Post Traumatic Stress Disorder Past Surgical History: Reports: Hx Section - 04/24/15, Hx Cholecystectomy, Hx Gynecologic Surgery - right ovary removed 09/03/13 - Immunizations Immunizations up to date: Yes Hx Diphtheria, Pertussis, Tetanus Vaccination: Yes - unknown Vertical Provider Document - CONSTITUTIONAL Agree With Documented VS: Yes Exam Limitations: No Limitations - INFECTION CONTROL TRAVEL OUTSIDE OF THE [place] IN LAST 30 DAYS: No - HEENT HEENT: Normocephalic - NECK Neck: Supple - RESPIRATORY O2 Sat by Pulse Oximetry: 99 - MUSCULOSKELETAL/EXTREMETIES Musculoskeletal/Extremeties: MAEW, FROM, Tender - right lateral foot soft tissue , Edema Notes: No bony tenderness in her foot or ankle - NEURO Level of Consciousness: Awake, Alert Motor/Sensory: No Motor Deficit, No Sensory Deficit - DERM Integumentary: Warm, Dry Course - Re-evaluation Re-evalutation: 08/30/16 21:48 [place] negative - Vital Signs Vital signs: Temp Pulse Resp BP Pulse Ox 98.6 F 100 18 121/84 99 08/30/16 10:49 08/30/16 10:49 08/30/16 10:49 08/30/16 10:49 08/30/16 10:49 Procedures - Immobilization Right Ankle Time completed: 13:55 Pre-Proc Neuro Vasc Exam: Normal Immobilizer type: Ankle stirrup Performed by: PCT Post-Proc Neuro Vasc Exam: Normal Alignment checked and good: Yes Discharge - Discharge Clinical Impression: right ankle sprain Condition: Good Disposition: HOME, SELF-CARE Instructions: Sprained Ankle ([facility]), Ankle Stirrup Splint ([facility]), Use of Over-The -Counter Ibuprofen ([facility]) Additional Instructions: splint for comfort crutches few days take your motrin see orthopedic doctor if persists Please complete the patient satisfaction survey if you get one, and return it.. If you do not receive a survey, then you can go to the [facility] website, [email or web address] and place your comments about your very good care. Thank you very much. It was a pleasure being your medical provider today. Referrals: AZEEM KAM MD [ACTIVE STAFF] - Follow up as needed
[2016-08-30 13:43] VITALS: BP 118/59
== END 2016-08-30 13:53 | disposition home or self-care (01) ==
LOC: ER 10:43
PROC: 2W3SX1Z Immobilization of Right Foot using Splint (ICD-10-PCS; principal; 2016-08-30)
DX: S99.911A Unspecified injury of right ankle, initial encounter (principal); M25.571 Pain in right ankle and joints of right foot; X50.1XXA Overexertion from prolonged static or awkward postures, initial encounter; F17.200 Nicotine dependence, unspecified, uncomplicated
CPT/HCPCS: 99283; 73610; 73630; 29515; L1902

== ENCOUNTER 2016-09-07 13:12 | Emergency (ER) | payer MEDICARE, MEDICAID ==
[2016-09-07 13:27] VITALS: BP 139/51
[2016-09-07 14:53] LABS: ABSOLUTE BASOPHILS # (AUTO) 0.1 10^3/uL (0.0-0.2); ABSOLUTE EOSINOPHILS # (AUTO) 0.3 10^3/uL (0.0-0.6); ABSOLUTE LYMPHOCYTES (AUTO) 3.8 10^3/uL (0.5-4.7); ABSOLUTE MONOCYTES (AUTO) 0.6 10^3/uL (0.1-1.4); ABSOLUTE NEUT (AUTO) 9.6 10^3/uL (1.7-8.2); BASOPHILS % (AUTO) 0.6 % (0-2); EOSINOPHILS % (AUTO) 1.9 % (0-6); HEMATOCRIT 42.8 % (36.0-47.0); HEMOGLOBIN 14.1 g/dL (12.0-15.5); HGB HCT DIFFERENCE -0.5; LYMPHOCYTES % (AUTO) 26.5 % (13-45); MEAN CORPUSCULAR HEMOGLOBIN 27.3 pg (27.0-33.4); MEAN CORPUSCULAR VOLUME 83 fl (80-97); MONOCYTES % (AUTO) 4.5 % (3-13); RED BLOOD COUNT 5.16 10^6/uL (3.72-5.28); SEGMENTED NEUTROPHILS % (AUTO) 66.5 % (42-78); WHITE BLOOD COUNT 14.4 10^3/uL (4.0-10.5)
[2016-09-07] MEDS ORDERED: ONDANSETRON 4 MG TAB.RAPDIS PO ONE (15:02)
[2016-09-07] MEDS ORDERED: HYDROCODONE/ACETAMINOPHEN 5-325 MG TABLET PO ONE (15:03)
--- NOTE | 2016-09-07 15:10 | ER Document Report ---
ED General - General Chief Complaint: Abdominal Pain Stated Complaint: ABDOMINAL PAIN Mode of Arrival: Ambulatory Information source: Patient Notes: 21-year-old female presents with complaints of urinary frequency over the past 2 days with suprapubic pain nausea vomiting feeling warm. Patient has had left flank pain. Denies any history of kidney stones admits to history of kidney infections in the past TRAVEL OUTSIDE OF THE [place] IN LAST 30 DAYS: No - HPI Onset: Yesterday Onset/Duration: Persistent Quality of pain: Achy Severity: Mild Pain Level: 1 Associated symptoms: Fever, Nausea, Vomiting, Other Exacerbated by: Denies Relieved by: Denies Similar symptoms previously: Yes Recently seen / treated by doctor: No - Related Data Allergies/Adverse Reactions: bupropion HCl [From Wellbutrin] Allergy (Verified 09/07/16 13:23) VOMITING divalproex sodium [From Depakote] Allergy (Verified 09/07/16 13:23) VOMITING haloperidol [From Haldol] Allergy (Verified 09/07/16 13:23) Distonic Reaction olanzapine [From Zyprexa] Allergy (Verified 09/07/16 13:23) Rash topiramate [From Topamax] Allergy (Verified 09/07/16 13:23) Speech problems, drooling Past Medical History - Social History Smoking Status: Never Smoker Cigarette use (# per day): No Chew tobacco use (# tins/day): No Smoking Education Provided: No Family History: Reviewed & Not Pertinent, CAD, DM Patient has suicidal ideation: No Patient has homicidal ideation: No Pulmonary Medical History: Reports: Hx Asthma Denies: Hx Tuberculosis Renal/ Medical History: Reports: Hx Kidney Stones, Hx Ovarian Cysts. Denies: Hx Peritoneal Dialysis Musculoskeltal Medical History: Denies Hx Arthritis Psychiatric Medical History: Reports: Hx Anxiety, Hx Bipolar Disorder, Hx Depression, Hx Personality Disorder, Hx Post Traumatic Stress Disorder Past Surgical History: Reports: Hx Section - 04/24/15, Hx Cholecystectomy, Hx Gynecologic Surgery - right ovary removed 09/03/13 - Immunizations Immunizations up to date: Yes Hx Diphtheria, Pertussis, Tetanus Vaccination: Yes - unknown Review of Systems - Review of Systems Notes: REVIEW OF SYSTEMS: CONSTITUTIONAL : Denies fever, chills, or sweats. Denies recent illness. EENT: Denies eye, ear, throat, or mouth pain or symptoms. Denies nasal or sinus congestion or discharge. Denies throat, tongue, or mouth swelling or difficulty swallowing. CARDIOVASCULAR: Denies chest pain. Denies palpitations or racing or irregular heart beat. Denies ankle edema. RESPIRATORY: Denies cough, cold, or chest congestion. Denies shortness of breath, difficulty breathing, or wheezing. GASTROINTESTINAL: Admits to left flank pain GENITOURINARY: Admits to urinary frequency FEMALE GENITOURINARY: Denies vaginal bleeding, heavy or abnormal periods, irregular periods. Denies vaginal discharge or odor. MUSCULOSKELETAL: Denies back or neck pain or stiffness. Denies joint pain or swelling. SKIN: Denies rash, lesions or sores. HEMATOLOGIC : Denies easy bruising or bleeding. LYMPHATIC: Denies swollen, enlarged glands. NEUROLOGICAL: Denies confusion or altered mental status. Denies passing out or loss of consciousness. Denies dizziness or lightheadedness. Denies headache. Denies weakness or paralysis or loss of use of either side. Denies problems with gait or speech. Denies sensory loss, numbness, or tingling. Denies seizures. PSYCHIATRIC: Denies anxiety or stress. Denies depression, suicidal ideation, or homicidal ideation. ALL OTHER SYSTEMS REVIEWED AND NEGATIVE. Dictation was performed using [employer] voice recognition software PHYSICAL EXAMINATION: GENERAL: Well-appearing, well-nourished and in no acute distress. HEAD: Atraumatic, normocephalic. EYES: Pupils equal round and reactive to light, extraocular movements intact, conjunctiva are normal. ENT: Nares patent, oropharynx clear without exudates. Moist mucous membranes. NECK: Normal range of motion, supple without lymphadenopathy LUNGS: Breath sounds clear to auscultation bilaterally and equal. No wheezes rales or rhonchi. HEART: Regular rate and rhythm without murmurs ABDOMEN: Left CVA tenderness noted Female : deferred Musculoskeletal: Normal range of motion, no pitting or edema. No cyanosis. NEUROLOGICAL: Cranial nerves grossly intact. Normal speech, normal gait. Normal sensory, motor exams PSYCH: Normal mood, normal affect. SKIN: Warm, Dry, normal turgor, no rashes or lesions noted. Physical Exam - Vital signs Vitals: Temp Pulse Resp BP Pulse Ox 98.9 F 99 16 139/51 H 98 09/07/16 13:26 09/07/16 13:26 09/07/16 13:26 09/07/16 13:26 09/07/16 13:26 Course - Re-evaluation Re-evalutation: 09/07/16 15:10 Patient has probable urinary tract infection versus pyelonephritis lab work pending 09/07/16 17:35 Urinalysis noted no significant abnormality, patient is extremely happy that she is not states this was her biggest concern. CT was performed abnormality was noted prior was given to patient After performing a Medical Screening Examination, I estimate there is LOW risk for ACUTE APPENDICITIS, BOWEL OBSTRUCTION, ACUTE CHOLECYSTITIS, PERFORATED DIVERTICULITIS, INCARCERATED HERNIA, PANCREATITIS, PELVIC INFLAMMATORY DISEASE, PERFORATED ULCER, ECTOPIC , or TUBO-OVARIAN ABSCESS, thus I consider the discharge disposition reasonable. Also, there is no evidence or peritonitis , sepsis, or toxicity. The patient and I have discussed the diagnosis and risks , and we agree with discharging home with close follow-up with the understanding that symptoms and presentations can change. We also discussed returning to the Emergency Department immediately if new or worsening symptoms occur. We have discussed the symptoms which are most concerning (e.g., bloody stool, fever, changing or worsening pain, vomiting) that necessitate immediate return. - Vital Signs Vital signs: Temp Pulse Resp BP Pulse Ox 98.9 F 99 16 139/51 H 98 09/07/16 13:26 09/07/16 13:26 09/07/16 13:26 09/07/16 13:26 09/07/16 13:26 - Laboratory Result Diagrams: 09/07/16 14:30 09/07/16 14:30 Laboratory results interpreted by me: 09/07/16 09/07/16 09/07/16 14:30 14:30 14:30 WBC 14.4 H RDW 15.0 H Absolute Neutrophils 9.6 H Sodium 145.8 H Urine Ascorbic Acid 20 H Discharge - Discharge Clinical Impression: Flank pain Abdominal pain Qualifiers: Abdominal location: unspecified location Qualified Code(s): R10.9 - Unspecified abdominal pain Elevated white blood cell count Qualifiers: Leukocytosis type: unspecified Qualified Code(s): D72.829 - Elevated white blood cell count, unspecified Condition: Stable Disposition: HOME, SELF-CARE Instructions: Abdominal Pain ([facility]) Additional Instructions: Follow up with your physician tomorrow for further care or return to the ED IMMEDIATELY if symptoms worsen or new concerns occur Prescriptions: Hydrocodone/Acetaminophen [[place] 5-325 mg Tablet] 1 tab PO Q6 #10 tablet
[2016-09-07 15:15] LABS: ALANINE AMINOTRANSFERASE 52 U/L (9-52); ALBUMIN 4.8 g/dL (3.5-5.0); ALKALINE PHOSPHATASE 92 U/L (38-126); ANION GAP 16 (5-19); ASPARTATE AMINO TRANSFERASE 35 U/L (14-36); BILIRUBIN,DIRECT 0.2 mg/dL (0.0-0.4); BILIRUBIN,TOTAL 0.4 mg/dL (0.2-1.3); BLOOD UREA NITROGEN 12 mg/dL (7-20); CALCIUM 10.1 mg/dL (8.4-10.2); CARBON DIOXIDE 25 mmol/L (22-30); CHLORIDE 105 mmol/L (98-107); CREATININE RESULT 0.56 mg/dL (0.52-1.25); GLUCOSE 87 mg/dL (75-110); POTASSIUM 3.8 mmol/L (3.6-5.0); SODIUM 145.8 mmol/L (137-145); TOTAL PROTEIN 7.9 g/dL (6.3-8.2)
[2016-09-07 15:40] LABS: APPEARANCE,URINE SLIGHTLY-CLOUDY; BILIRUBIN,URINE NEGATIVE (NEGATIVE); GLUCOSE, URINE NEGATIVE (NEGATIVE); KETONES,URINE NEGATIVE (NEGATIVE); LEUKOCYTE ESTERASE,URINE NEGATIVE (NEGATIVE); NITRITE,URINE NEGATIVE (NEGATIVE); PROTEIN,URINE NEGATIVE (NEGATIVE); URINE SPECIFIC GRAVITY 1.023; UROBILINOGEN,URINE NEGATIVE mg/dL (<2.0)
== END 2016-09-07 17:45 | disposition home or self-care (01) ==
LOC: ER 13:12
DX: R10.9 Unspecified abdominal pain (principal); R11.2 Nausea with vomiting, unspecified; D72.829 Elevated white blood cell count, unspecified; R35.0 Frequency of micturition; Z87.440 Personal history of urinary (tract) infections; Z88.8 Allergy status to other drugs, medicaments and biological substances; J45.909 Unspecified asthma, uncomplicated; Z90.49 Acquired absence of other specified parts of digestive tract; Z90.721 Acquired absence of ovaries, unilateral
CPT/HCPCS: 99284; 36415; 83690; 85025; 81025; 80053; 81001; 76380; A9270 ×2; S0119

== ENCOUNTER 2016-10-17 08:59 | Emergency (ER) | payer MEDICARE, MEDICAID ==
[2016-10-17 09:14] VITALS: BP 160/91
[2016-10-17] MEDS ORDERED: ONDANSETRON HCL INJ/PF 4 MG/2 ML SDV IV ONE (09:28)
[2016-10-17] MEDS ORDERED: NORMAL SALINE 1000 ML 1,000 ML IV ONE (09:28)
[2016-10-17] MEDS ORDERED: HYDROMORPHONE HCL INJ/PF 2 MG/ML AMPULE IV ONE ×2 (09:28→11:06)
--- NOTE | 2016-10-17 09:28 | ER Document Report ---
ED Medical Screen (RME) - General Mode of Arrival: Ambulatory Information source: Patient TRAVEL OUTSIDE OF THE [place] IN LAST 30 DAYS: No - HPI Patient complains to provider of: abdominal pain <LIONEL LUCIANO - Last Filed: 10/17/16 10:18> <JO ARCHIBALD - Last Filed: 10/17/16 21:26> - General Chief Complaint: Abdominal Pain Stated Complaint: FALL;ABDOMINAL PAIN Time Seen by Provider: 10/17/16 09:23 Notes: Patient presents to emergency room complaining of swollen abdomen onset today. Patient reports she was drinking on Friday and fell down on her front and someone fell on top of her, reports the pain is not bad at the time. Patient states she just found out she has diabetes mellitus on medication for it yet. Patient also complains of vomiting, diarrhea, and a low-grade fever this morning. (LIONEL LUCIANO) - Related Data Allergies/Adverse Reactions: bupropion HCl [From Wellbutrin] Allergy (Verified 10/17/16 09:26) VOMITING divalproex sodium [From Depakote] Allergy (Verified 10/17/16 09:26) VOMITING haloperidol [From Haldol] Allergy (Verified 10/17/16 09:26) Distonic Reaction olanzapine [From Zyprexa] Allergy (Verified 10/17/16 09:26) Rash topiramate [From Topamax] Allergy (Verified 10/17/16 09:26) Speech problems, drooling Past Medical History - General Information source: Patient - Social History Family history: Reviewed & Not Pertinent Pulmonary Medical History: Reports: Hx Asthma Denies: Hx Tuberculosis Renal/ Medical History: Reports: Hx Kidney Stones, Hx Ovarian Cysts. Denies: Hx Peritoneal Dialysis Musculoskeltal Medical History: Denies Hx Arthritis Psychiatric Medical History: Reports: Hx Anxiety, Hx Bipolar Disorder, Hx Depression, Hx Personality Disorder, Hx Post Traumatic Stress Disorder Past Surgical History: Reports: Hx Section - 04/24/15, Hx Cholecystectomy, Hx Gynecologic Surgery - right ovary removed 09/03/13 - Immunizations Immunizations up to date: Yes Hx Diphtheria, Pertussis, Tetanus Vaccination: Yes - unknown <LIONEL LUCIANO - Last Filed: 10/17/16 10:18> Review of Systems - Review of Systems Gastrointestinal: Abdominal pain <LIONEL LUCIANO - Last Filed: 10/17/16 10:18> Physical Exam - General General appearance: Other - Appears uncomfortable - Abdominal Distension: Other - mildly rigid Tenderness: Tender - Diffuse upper and epigastric tenderness to palpation, no lower abdominal tenderness. <LIONEL LUCIANO - Last Filed: 10/17/16 10:18> Course - Laboratory Result Diagrams: 10/17/16 10:10 10/17/16 10:50 <JO ARCHIBALD - Last Filed: 10/17/16 21:26> - Vital Signs Vital signs: Temp Pulse Resp BP Pulse Ox 99.0 F 81 17 160/91 H 100 10/17/16 09:13 10/17/16 09:13 10/17/16 09:13 10/17/16 09:13 10/17/16 09:13 - Laboratory Laboratory results interpreted by me: 10/17/16 10/17/16 10:10 10:50 RDW 14.6 H Creatinine 0.50 L Glucose 124 H AST 66 H ALT 81 H Doctor's Discharge <LIONEL LUCIANO - Last Filed: 10/17/16 10:18> <JO ARCHIBALD - Last Filed: 10/17/16 21:26> - Discharge Clinical Impression: Gastritis Condition: Stable Disposition: HOME, SELF-CARE Additional Instructions: There is no evidence of injury her abdomen and there is no evidence of pancreatitis. I suspect a gastritis which is an irritation of the lining of her stomach. It is important that she take the antacids and avoid alcohol intake until the symptoms resolve. I have also prescribed Zofran to help with her nausea. Please avoid NSAID such as ibuprofen and Aleve, please take Tylenol for the pain instead. Do not exceed more than 4000 mg in 24 hours. Prescriptions: Ondansetron [Zofran Odt 4 mg Tablet] 1 - 2 tab PO Q4H PRN #15 tab.rapdis PRN Reason: For Nausea/Vomiting Ranitidine HCl [Zantac 150 mg Tablet] 150 mg PO BID #60 tablet Referrals: ELYSE SHEA DO [Primary Care Provider] - Follow up as needed Scribe Documentation - Scribe Written by Marbellae:: tomasa Nolen, 10/17/16, 1019 acting as scribe for :: Farhan <LIONEL LUCIANO - Last Filed: 10/17/16 10:18>
[2016-10-17 10:24] LABS: ABSOLUTE BASOPHILS # (AUTO) 0.1 10^3/uL (0.0-0.2); ABSOLUTE EOSINOPHILS # (AUTO) 0.1 10^3/uL (0.0-0.6); ABSOLUTE MONOCYTES (AUTO) 0.3 10^3/uL (0.1-1.4); ABSOLUTE NEUT (AUTO) 7.1 10^3/uL (1.7-8.2); BASOPHILS % (AUTO) 0.7 % (0-2); EOSINOPHILS % (AUTO) 1.2 % (0-6); HEMATOCRIT 39.2 % (36.0-47.0); HEMOGLOBIN 13.1 g/dL (12.0-15.5); HGB HCT DIFFERENCE 0.1; LYMPHOCYTES % (AUTO) 20.7 % (13-45); MEAN CORPUSCULAR HEMOGLOBIN 27.7 pg (27.0-33.4); MEAN CORPUSCULAR HGB CONC 33.3 g/dL (32.0-36.0); MEAN CORPUSCULAR VOLUME 83 fl (80-97); RED BLOOD COUNT 4.71 10^6/uL (3.72-5.28); RED CELL DISTRIBUTION WIDTH 14.6 % (11.5-14.0); SEGMENTED NEUTROPHILS % (AUTO) 74.4 % (42-78); WHITE BLOOD COUNT 9.5 10^3/uL (4.0-10.5)
[2016-10-17 11:23] LABS: ALANINE AMINOTRANSFERASE 81 U/L (9-52); ALBUMIN 4.1 g/dL (3.5-5.0); ALKALINE PHOSPHATASE 80 U/L (38-126); AMYLASE 56 U/L (30-110); ANION GAP 14 (5-19); ASPARTATE AMINO TRANSFERASE 66 U/L (14-36); BILIRUBIN,DIRECT 0.3 mg/dL (0.0-0.4); BILIRUBIN,TOTAL 0.5 mg/dL (0.2-1.3); BLOOD UREA NITROGEN 7 mg/dL (7-20); CALCIUM 9.2 mg/dL (8.4-10.2); CARBON DIOXIDE 25 mmol/L (22-30); CHLORIDE 105 mmol/L (98-107); GLUCOSE 124 mg/dL (75-110); LIPASE 51.6 U/L (23-300); POTASSIUM 4.2 mmol/L (3.6-5.0); SODIUM 144.1 mmol/L (137-145); TOTAL PROTEIN 7.1 g/dL (6.3-8.2)
[2016-10-17] MEDS ORDERED: MAG HYDROX/AL HYDROX/SIMETH SUSP 30 ML UDCUP PO ONE (12:06)
[2016-10-17] MEDS ORDERED: METOCLOPRAMIDE HCL ORAL SOLN 10 MG/10 ML UDCUP PO ONE (12:06)
[2016-10-17] MEDS ORDERED: LIDOCAINE 2% VISCOUS SOLN 20 ML UDCUP PO ONE (12:06)
--- NOTE | 2016-10-17 13:36 | ER Document Report ---
ED GI/ - General Mode of Arrival: Ambulatory TRAVEL OUTSIDE OF THE [place] IN LAST 30 DAYS: No - HPI Patient complains to provider of: Abdominal pain Associated symptoms: Other - See above <LIONEL LUCIANO - Last Filed: 10/17/16 14:02> <JO ARCHIBALD - Last Filed: 10/17/16 21:28> - General Chief Complaint: Abdominal Pain Stated Complaint: FALL;ABDOMINAL PAIN Time Seen by Provider: 10/17/16 09:23 Notes: Patient is a 21 year old female who presents to the emergency room complaining of swollen abdomen and abdominal pain onset yesterday. Patient reports she was drinking on Friday and fell down on her front and someone fell on top of her, reports the pain was not bad at the time. Patient states she just found out she has diabetes mellitus but is not on medication for it yet. Patient also complains of vomiting, diarrhea, and a low-grade fever this morning. (LIONEL LUCIANO) - HPI Notes: 10/17/16 21:27 Pain did not start until Friday, injury happened on Friday. (JO ARCHIBALD) - Related Data Allergies/Adverse Reactions: bupropion HCl [From Wellbutrin] Allergy (Verified 10/17/16 09:26) VOMITING divalproex sodium [From Depakote] Allergy (Verified 10/17/16 09:26) VOMITING haloperidol [From Haldol] Allergy (Verified 10/17/16 09:26) Distonic Reaction olanzapine [From Zyprexa] Allergy (Verified 10/17/16 09:26) Rash topiramate [From Topamax] Allergy (Verified 10/17/16 09:26) Speech problems, drooling Past Medical History - General Information source: Patient - Social History Smoking Status: Unknown if Ever Smoked Family History: Reviewed & Not Pertinent, CAD, DM Patient has suicidal ideation: No Patient has homicidal ideation: No Pulmonary Medical History: Reports: Hx Asthma Endocrine Medical History: Reports: Hx Diabetes Mellitus Type 2 Renal/ Medical History: Reports: Hx Kidney Stones, Hx Ovarian Cysts Psychiatric Medical History: Reports: Hx Anxiety, Hx Bipolar Disorder, Hx Depression, Hx Personality Disorder, Hx Post Traumatic Stress Disorder Past Surgical History: Reports: Hx Section - 04/24/15, Hx Cholecystectomy, Hx Gynecologic Surgery - right ovary removed 09/03/13 - Immunizations Immunizations up to date: Yes Hx Diphtheria, Pertussis, Tetanus Vaccination: Yes - unknown <LIONEL LUCIANO - Last Filed: 10/17/16 14:02> Review of Systems - Review of Systems Constitutional: See HPI, Fever EENT: No symptoms reported Cardiovascular: No symptoms reported Respiratory: No symptoms reported Gastrointestinal: See HPI, Abdomen distended, Abdominal pain, Diarrhea, Vomiting Genitourinary: No symptoms reported Female Genitourinary: No symptoms reported Musculoskeletal: No symptoms reported Skin: No symptoms reported Hematologic/Lymphatic: No symptoms reported Neurological/Psychological: No symptoms reported -: Yes All other systems reviewed and negative <LIONEL LUCIANO - Last Filed: 10/17/16 14:02> Physical Exam - General General appearance: Appears well, Alert In distress: None - Respiratory Respiratory status: No respiratory distress Chest status: Nontender Breath sounds: Normal Chest palpation: Normal - Cardiovascular Rhythm: Regular Heart sounds: Normal auscultation - Abdominal Inspection: Normal Tenderness: Tender - Epigastric tenderness to palpation and diffuse upper tenderness, no tenderness to palpaiton of lower abdomen. - Back Back: Normal - Extremities General upper extremity: Normal inspection General lower extremity: Normal inspection <LIONEL LUCIANO - Last Filed: 10/17/16 14:02> - Vital signs Interpretation: Hypertensive - HEENT Head: Normocephalic, Atraumatic Pupils: PERRL - Abdominal Distension: No distension Tenderness: No: McBurney's point, Beal's sign, Guarding, Rebound Organomegaly: No organomegaly <JO ARCHIBALD - Last Filed: 10/17/16 21:28> - Vital signs Vitals: Temp Pulse Resp BP Pulse Ox 99.0 F 81 17 160/91 H 100 10/17/16 09:13 10/17/16 09:13 10/17/16 09:13 10/17/16 09:13 10/17/16 09:13 Course - Laboratory Result Diagrams: 10/17/16 10:10 10/17/16 10:50 <LIONEL LUCIANO - Last Filed: 10/17/16 14:02> - Laboratory Result Diagrams: 10/17/16 10:10 10/17/16 10:50 <JO ARCHIBALD - Last Filed: 10/17/16 21:28> - Re-evaluation Re-evalutation: 10/17/16 13:38 CBC unremarkable, CMP shows slightly elevated AST and ALT at 66 and 81 respectively, consistent with copious alcohol intake last night. Lipase normal , no evidence of pancreatitis, pain did not start until several days after injury, abdominal exam is relatively benign only mild tenderness without any guarding, no bruising. Patient will be discharged to home. Suspect this is more likely gastritis than traumatic injury. (JO ARCHIBALD) - Vital Signs Vital signs: Temp Pulse Resp BP Pulse Ox 99.0 F 81 17 160/91 H 100 10/17/16 09:13 10/17/16 09:13 10/17/16 09:13 10/17/16 09:13 10/17/16 09:13 - Laboratory Laboratory results interpreted by me: 10/17/16 10/17/16 10:10 10:50 RDW 14.6 H Creatinine 0.50 L Glucose 124 H AST 66 H ALT 81 H Discharge <LIONEL LUCIANO - Last Filed: 10/17/16 14:02> <JO ARCHIBALD - Last Filed: 10/17/16 21:28> - Discharge Clinical Impression: Gastritis Qualifiers: Gastritis type: unspecified gastritis Chronicity: acute Gastritis bleeding: without bleeding Qualified Code(s): K29.00 - Acute gastritis without bleeding Condition: Stable Disposition: HOME, SELF-CARE Additional Instructions: There is no evidence of injury her abdomen and there is no evidence of pancreatitis. I suspect a gastritis which is an irritation of the lining of her stomach. It is important that she take the antacids and avoid alcohol intake until the symptoms resolve. I have also prescribed Zofran to help with her nausea. Please avoid NSAID such as ibuprofen and Aleve, please take Tylenol for the pain instead. Do not exceed more than 4000 mg in 24 hours. Prescriptions: Ondansetron [Zofran Odt 4 mg Tablet] 1 - 2 tab PO Q4H PRN #15 tab.rapdis PRN Reason: For Nausea/Vomiting Ranitidine HCl [Zantac 150 mg Tablet] 150 mg PO BID #60 tablet Referrals: ELYSE SHEA DO [Primary Care Provider] - Follow up as needed Scribe Attestation: 10/17/16 21:28 I personally performed the services described in the documentation, reviewed and edited the documentation which was dictated to the scribe in my presence, and it accurately records my words and actions. (JO ARCHIBALD) Scribe Documentation - Scribe Written by Tomasa:: tomasa Nolen, 10/17/16, 1409 acting as scribe for :: Vesta <LIONEL LUCIANO - Last Filed: 10/17/16 14:02>
== END 2016-10-17 13:47 | disposition home or self-care (01) ==
LOC: ER 08:59
DX: K29.00 Acute gastritis without bleeding (principal); R10.10 Upper abdominal pain, unspecified; E11.9 Type 2 diabetes mellitus without complications; R50.9 Fever, unspecified; J45.909 Unspecified asthma, uncomplicated; Z87.442 Personal history of urinary calculi; Z90.49 Acquired absence of other specified parts of digestive tract
CPT/HCPCS: 96376; 99284; 96374; 96375; 36415; 82150; 83690; 84703; 85025; 80053; J3490; A9270; J1170; J2405; J7030

== ENCOUNTER 2016-10-30 15:51 | Emergency (ER) | payer MEDICARE, MEDICAID ==
--- NOTE | 2016-10-30 17:13 | ER Document Report ---
ED Medical Screen (RME) - General Chief Complaint: Abdominal Pain Stated Complaint: ABDOMINAL PAIN/VAGINAL DISCHARGE Time Seen by Provider: 10/30/16 17:00 Notes: Patient is here because she has been having lower abdominal pain for the past week. The pain is been associated with a vaginal discharge as well as an odor and itching. She has had some vomiting. No fevers. Menstrual cycles have been regular and her last was 10/14. Has a history of ovarian cyst causing similar pains. She has had surgery for one cyst on the right ovary. Also C- section and cholecystectomy. TRAVEL OUTSIDE OF THE [place] IN LAST 30 DAYS: No - Related Data Allergies/Adverse Reactions: bupropion HCl [From Wellbutrin] Allergy (Verified 10/17/16 09:26) VOMITING divalproex sodium [From Depakote] Allergy (Verified 10/17/16 09:26) VOMITING haloperidol [From Haldol] Allergy (Verified 10/17/16 09:26) Distonic Reaction olanzapine [From Zyprexa] Allergy (Verified 10/17/16 09:26) Rash topiramate [From Topamax] Allergy (Verified 10/17/16 09:26) Speech problems, drooling Past Medical History - Social History Family history: Reviewed & Not Pertinent Pulmonary Medical History: Reports: Hx Asthma Denies: Hx Tuberculosis Endocrine Medical History: Reports: Hx Diabetes Mellitus Type 2 Renal/ Medical History: Reports: Hx Kidney Stones, Hx Ovarian Cysts. Denies: Hx Peritoneal Dialysis Musculoskeltal Medical History: Denies Hx Arthritis Psychiatric Medical History: Reports: Hx Anxiety, Hx Bipolar Disorder, Hx Depression, Hx Personality Disorder, Hx Post Traumatic Stress Disorder Past Surgical History: Reports: Hx Section - 04/24/15, Hx Cholecystectomy, Hx Gynecologic Surgery - right ovary removed 09/03/13 - Immunizations Immunizations up to date: Yes Hx Diphtheria, Pertussis, Tetanus Vaccination: Yes - unknown
[2016-10-30 17:20] LABS: ABSOLUTE BASOPHILS # (AUTO) 0.1 10^3/uL (0.0-0.2); ABSOLUTE EOSINOPHILS # (AUTO) 0.3 10^3/uL (0.0-0.6); ABSOLUTE LYMPHOCYTES (AUTO) 3.6 10^3/uL (0.5-4.7); ABSOLUTE MONOCYTES (AUTO) 0.5 10^3/uL (0.1-1.4); ABSOLUTE NEUT (AUTO) 7.1 10^3/uL (1.7-8.2); BASOPHILS % (AUTO) 0.7 % (0-2); EOSINOPHILS % (AUTO) 2.6 % (0-6); HEMATOCRIT 40.8 % (36.0-47.0); HEMOGLOBIN 13.4 g/dL (12.0-15.5); HGB HCT DIFFERENCE -0.6; MEAN CORPUSCULAR HEMOGLOBIN 27.5 pg (27.0-33.4); MEAN CORPUSCULAR HGB CONC 32.8 g/dL (32.0-36.0); MEAN CORPUSCULAR VOLUME 84 fl (80-97); MONOCYTES % (AUTO) 4.2 % (3-13); RED BLOOD COUNT 4.86 10^6/uL (3.72-5.28); RED CELL DISTRIBUTION WIDTH 14.7 % (11.5-14.0); SEGMENTED NEUTROPHILS % (AUTO) 61.5 % (42-78); WHITE BLOOD COUNT 11.6 10^3/uL (4.0-10.5)
[2016-10-30 17:42] LABS: ALANINE AMINOTRANSFERASE 67 U/L (9-52); ALBUMIN 4.4 g/dL (3.5-5.0); ALKALINE PHOSPHATASE 76 U/L (38-126); ANION GAP 14 (5-19); ASPARTATE AMINO TRANSFERASE 55 U/L (14-36); BILIRUBIN,DIRECT 0.3 mg/dL (0.0-0.4); BILIRUBIN,TOTAL 0.4 mg/dL (0.2-1.3); BLOOD UREA NITROGEN 10 mg/dL (7-20); CALCIUM 9.8 mg/dL (8.4-10.2); CARBON DIOXIDE 26 mmol/L (22-30); CHLORIDE 104 mmol/L (98-107); CREATININE RESULT 0.59 mg/dL (0.52-1.25); GLUCOSE 122 mg/dL (75-110); LIPASE 121.1 U/L (23-300); SODIUM 144.1 mmol/L (137-145); TOTAL PROTEIN 7.5 g/dL (6.3-8.2)
[2016-10-30 17:43] LABS: POTASSIUM 3.7 mmol/L (3.6-5.0)
[2016-10-30 17:45] LABS: APPEARANCE,URINE SLIGHTLY-CLOUDY; BILIRUBIN,URINE NEGATIVE (NEGATIVE); CALCIUM OXALATE CRYSTALS,URINE MANY /HPF; GLUCOSE, URINE NEGATIVE (NEGATIVE); KETONES,URINE NEGATIVE (NEGATIVE); LEUKOCYTE ESTERASE,URINE SMALL (NEGATIVE); NITRITE,URINE NEGATIVE (NEGATIVE); PROTEIN,URINE NEGATIVE (NEGATIVE); URINE SPECIFIC GRAVITY 1.021; UROBILINOGEN,URINE NEGATIVE mg/dL (<2.0)
== END 2016-10-30 18:00 | disposition left against medical advice (07) ==
LOC: ER 15:51
DX: R10.9 Unspecified abdominal pain (principal); N89.8 Other specified noninflammatory disorders of vagina; R11.10 Vomiting, unspecified
CPT/HCPCS: 36415; 80053; 81001; 83690; 84703; 85025; 99281

== ENCOUNTER 2016-11-22 13:30 | Emergency (ER) | payer MEDICARE, MEDICAID ==
[2016-11-22 13:40] VITALS: BP 130/67
== END 2016-11-22 14:05 | disposition left against medical advice (07) ==
LOC: ER 13:30
DX: Z53.21 Procedure and treatment not carried out due to patient leaving prior to being seen by health care provider (principal)

== ENCOUNTER 2016-12-04 09:26 | Emergency (ER) | payer MEDICARE, MEDICAID ==
--- NOTE | 2016-12-04 10:18 | ER Document Report ---
ED GI/ - General Mode of Arrival: Ambulatory Information source: Patient TRAVEL OUTSIDE OF THE [place] IN LAST 30 DAYS: No - HPI Patient complains to provider of: Other Onset: Other <TRINH SIM - Last Filed: 12/04/16 15:17> <GA MAYO - Last Filed: 12/12/16 22:59> - General Chief Complaint: Flank Pain Stated Complaint: POSSIBLE SYNCOPE Time Seen by Provider: 12/04/16 10:03 Notes: Patient is a 21-year-old female who presents to the emergency department today with complaints of left-sided abdominal pain. Patient states she has a history of kidney stones and ovarian cysts and this feels similar to her previous ovarian cyst. Patient states she was at an urgent care prior to her arrival here and they told her that they were not seeing patients until 10:00 so she was walking back when she had a syncopal episode. Patient states she has had a syncopal episodes in the past in the setting of pain. Patient has a diagnosed history of anxiety, depression, and bipolar disorder. Patient denies a history of seizures, urinary symptoms, vaginal discharge, or vaginal bleeding. Patient states that she is not sexually active. (TRINH SIM) - Related Data Allergies/Adverse Reactions: bupropion HCl [From Wellbutrin] Allergy (Verified 12/04/16 09:36) VOMITING divalproex sodium [From Depakote] Allergy (Verified 12/04/16 09:36) VOMITING haloperidol [From Haldol] Allergy (Verified 12/04/16 09:36) Distonic Reaction olanzapine [From Zyprexa] Allergy (Verified 12/04/16 09:36) Rash topiramate [From Topamax] Allergy (Verified 12/04/16 09:36) Speech problems, drooling Past Medical History - General Information source: Patient - Social History Smoking Status: Current Every Day Smoker Cigarette use (# per day): No Chew tobacco use (# tins/day): No Frequency of alcohol use: Social Drug Abuse: Marijuana Lives with: Family Family History: Reviewed & Not Pertinent, CAD, DM Pulmonary Medical History: Reports: Hx Asthma Endocrine Medical History: Reports: Hx Diabetes Mellitus Type 2 Renal/ Medical History: Reports: Hx Kidney Stones, Hx Ovarian Cysts Psychiatric Medical History: Reports: Hx Anxiety, Hx Bipolar Disorder, Hx Depression, Hx Personality Disorder, Hx Post Traumatic Stress Disorder Past Surgical History: Reports: Hx Section - 04/24/15, Hx Cholecystectomy, Hx Gynecologic Surgery - right ovary removed 09/03/13 - Immunizations Immunizations up to date: Yes Hx Diphtheria, Pertussis, Tetanus Vaccination: Yes - unknown <TRINH SIM - Last Filed: 12/04/16 15:17> Review of Systems - Review of Systems Constitutional: No symptoms reported EENT: No symptoms reported Cardiovascular: No symptoms reported Respiratory: No symptoms reported Gastrointestinal: See HPI, Abdominal pain, Diarrhea, Vomiting Genitourinary: No symptoms reported Female Genitourinary: denies: Vaginal bleeding Musculoskeletal: No symptoms reported Skin: No symptoms reported Hematologic/Lymphatic: No symptoms reported Neurological/Psychological: No symptoms reported -: Yes All other systems reviewed and negative <TRINH SIM - Last Filed: 12/04/16 15:17> Physical Exam <TRINH SIM - Last Filed: 12/04/16 15:17> <GA MAYO - Last Filed: 12/12/16 22:59> - Vital signs Vitals: Temp Pulse Resp BP Pulse Ox 98.0 F 108 H 20 135/90 H 96 12/04/16 09:30 12/04/16 09:30 12/04/16 09:30 12/04/16 09:30 12/04/16 09:30 - Notes Notes: Physical Exam: General: Alert, appears well. HEENT: Normocephalic. Atraumatic. PERRL. Extraocular movements intact. Oropharynx clear. Neck: Supple. Non-tender. Respiratory: No respiratory distress. Clear and equal breath sounds bilaterally. Cardiovascular: Slightly tachycardic with regular rhythm. Abdominal: Obese. Non-tender. No distension. Normal Bowel Sounds. Back: Non-tender. No deformity or step off. Extremities: Moves all four extremities. Upper extremities: Normal inspection. Normal ROM. Lower extremities: Normal inspection. No edema. Normal ROM. Neurological: Normal cognition. AAOx4. Normal speech. Psychological: Normal affect. Normal Mood. Skin: Warm. Dry. Normal color. (TRINH SIM) Course - Laboratory Result Diagrams: 12/04/16 10:27 12/04/16 10:27 <TRINH SIM - Last Filed: 12/04/16 15:17> - Laboratory Result Diagrams: 12/04/16 10:27 12/04/16 10:27 <GA MAYO - Last Filed: 12/12/16 22:59> - Re-evaluation Re-evalutation: 12/04/16 13:34 Patient presents emergency department via EMS with a chief complaint left lower quadrant abdominal pain and passed out. She has had flank pain patient says left lower quadrant pain. She says she has a history of kidney stones and ovarian cyst and this felt like an ovarian cyst. She said that she went to the urgent care but the pain got so bad that she thinks that the cause of the pass out. She denies any recent history of travel surgery immobilization DVT or pulmonary emboli. She is on Xanax trazodone Geodon for bipolar depression and is also positive for opiates and marijuana. She says the past day or 2 she has had some nausea vomiting diarrhea and has been hydrated as well she probably should do. First and last normal menstrual period was the fifth of this month. She is . Denies any history of endometriosis. On examination she is well-appearing nontoxic in no acute distress but is somewhat tachycardic. EKG shows sinus tachycardia with Q waves which were present on previous and are nonacute. Chest x-ray acute labs were all negative no urinary tract infection sepsis GI bleeding not and pelvic ultrasound is negative. Do not feel that the patient needs a CT scan of the head as she has no altered mental status or seizure activity reported is at baseline mental status with GCS of 15. Also do not feel that this is a pulmonary emboli. At this time she is reassessed she denies any current pain nausea or vomiting. She is discharged follow-up primary care physician in 1 day and discuss specific reasons for ED return sooner (GA MAYO) - Vital Signs Vital signs: Temp Pulse Resp BP Pulse Ox 98.6 F 88 16 120/72 99 12/04/16 13:30 12/04/16 13:30 12/04/16 13:30 12/04/16 13:30 12/04/16 13:30 - Laboratory Laboratory results interpreted by me: 12/04/16 12/04/16 12/04/16 10:27 10:27 10:40 WBC 11.4 H RBC 5.32 H RDW 14.6 H Carbon Dioxide 21 L AST 68 H ALT 105 H Total Protein 8.7 H Urine Ascorbic Acid 40 H Discharge <TRINH SIM - Last Filed: 12/04/16 15:17> <GA MAYO - Last Filed: 12/12/16 22:59> - Discharge Clinical Impression: flank pain resolved, Syncope Condition: Stable Disposition: HOME, SELF-CARE Additional Instructions: Abdominal Pain There are many causes of abdominal pain. Pain can mean a serious problem requiring surgery (such as appendicitis). It can also be an innocent problem that goes away on its own (such as a viral infection). Often, time must pass to determine the cause of pain. The physician does not feel that hospitalization is necessary, at present. Things may change within the next 24 hours. Call the doctor or come back for re- examination if any problems occur, such as: (1) Pain that becomes more severe, steady, or becomes concentrated in one specific area. Also, pain that is more severe with movement or coughing. (2) Vomiting that persists or becomes more frequent. (3) Blood in the vomitus, urine, or bowel movements. Blood in the stool may have a tarry or black appearance. (4) Shaking chills or fever greater than 100 degrees F. (5) The abdomen becomes more distended or swollen. (6) Bowel movements cease. (7) Failure to improve as expected. Syncopal Episode Syncope (fainting or near-fainting) can occur from many different health problems. Or it can be a simple fainting spell requiring no treatment. It is safe for you to go home, but further evaluation will likely be necessary. Your work-up may include tests for internal bleeding, heart disease, medication problems, or near-strokes. Tests are not always required, however, depending on the nature of your problem. The warning signs of an impending faint include: dizziness, lightheadedness , nausea, hot flashes, tingling, and weakness. If this happens, lay down and put your feet up, then wait until all of these symptoms have passed before standing up again. If these episodes become recurrent, or if you develop chest pain, heart palpitations, mental confusion, blurred vision, or headache, then you should call the physician, or go to the emergency room. Referrals: ELYSE SHEA DO [Primary Care Provider] - (Follow-up in 1-2 days return for increasing worsening or new symptoms) Scribe Attestation: 12/04/16 13:31 I personally performed the services described in the documentation reviewed the documentation recorded by my scribe in my presence and it accurately and completely records my words and actions (GA MAYO) Scribe Documentation - Scribe Written by Scryannae:: Johnnie Grubbs, 12/04/2016 1121 acting as scribe for :: Noé <TRINH SMI - Last Filed: 12/04/16 15:17>
--- NOTE | 2016-12-04 10:42 | RADIOLOGY REPORT (SQ) ---
EXAM DESCRIPTION: CHEST SINGLE VIEW COMPLETED DATE/TIME: 12/04/2016 10:31 am REASON FOR STUDY: syncope COMPARISON: 05/12/2015 EXAM PARAMETERS: NUMBER OF VIEWS: One view. TECHNIQUE: Single frontal radiographic view of the chest acquired. RADIATION DOSE: NA LIMITATIONS: None. FINDINGS: LUNGS AND PLEURA: No opacities, masses or pneumothorax. No pleural effusion. MEDIASTINUM AND HILAR STRUCTURES: No masses. Contour normal. HEART AND VASCULAR STRUCTURES: Heart normal in size. Normal vasculature. BONES: No acute findings. HARDWARE: None in the chest. OTHER: No other significant finding. IMPRESSION: NO ACUTE RADIOGRAPHIC FINDING IN THE CHEST. TECHNICAL DOCUMENTATION: JOB ID: [id number]
[2016-12-04 11:04] LABS: ABSOLUTE EOSINOPHILS # (AUTO) 0.4 10^3/uL (0.0-0.6); ABSOLUTE MONOCYTES (AUTO) 0.5 10^3/uL (0.1-1.4); ABSOLUTE NEUT (AUTO) 7.5 10^3/uL (1.7-8.2); BASOPHILS % (AUTO) 0.3 % (0-2); EOSINOPHILS % (AUTO) 3.2 % (0-6); HEMATOCRIT 44.4 % (36.0-47.0); HEMOGLOBIN 14.7 g/dL (12.0-15.5); HGB HCT DIFFERENCE -0.3; LYMPHOCYTES % (AUTO) 25.9 % (13-45); MEAN CORPUSCULAR HEMOGLOBIN 27.6 pg (27.0-33.4); MEAN CORPUSCULAR HGB CONC 33.1 g/dL (32.0-36.0); MEAN CORPUSCULAR VOLUME 83 fl (80-97); MONOCYTES % (AUTO) 4.6 % (3-13); RED BLOOD COUNT 5.32 10^6/uL (3.72-5.28); RED CELL DISTRIBUTION WIDTH 14.6 % (11.5-14.0); WHITE BLOOD COUNT 11.4 10^3/uL (4.0-10.5)
[2016-12-04 11:18] LABS: ALANINE AMINOTRANSFERASE 105 U/L (9-52); ALBUMIN 4.7 g/dL (3.5-5.0); ALKALINE PHOSPHATASE 89 U/L (38-126); ANION GAP 16 (5-19); ASPARTATE AMINO TRANSFERASE 68 U/L (14-36); BILIRUBIN,DIRECT 0.3 mg/dL (0.0-0.4); BILIRUBIN,TOTAL 0.5 mg/dL (0.2-1.3); BLOOD UREA NITROGEN 8 mg/dL (7-20); CALCIUM 10.1 mg/dL (8.4-10.2); CARBON DIOXIDE 21 mmol/L (22-30); CHLORIDE 106 mmol/L (98-107); CREATININE RESULT 0.61 mg/dL (0.52-1.25); GLUCOSE 93 mg/dL (75-110); LIPASE 60.7 U/L (23-300); POTASSIUM 4.4 mmol/L (3.6-5.0); SODIUM 142.5 mmol/L (137-145); TOTAL PROTEIN 8.7 g/dL (6.3-8.2)
[2016-12-04 11:21] LABS: APPEARANCE,URINE SLIGHTLY-CLOUDY; BILIRUBIN,URINE NEGATIVE (NEGATIVE); GLUCOSE, URINE NEGATIVE (NEGATIVE); KETONES,URINE NEGATIVE (NEGATIVE); LEUKOCYTE ESTERASE,URINE NEGATIVE (NEGATIVE); NITRITE,URINE NEGATIVE (NEGATIVE); PROTEIN,URINE NEGATIVE (NEGATIVE); URINE SPECIFIC GRAVITY 1.017; UROBILINOGEN,URINE NEGATIVE mg/dL (<2.0)
[2016-12-04 11:28] LABS: URINE BARBITURATES SCREEN NEGATIVE; URINE METHADONE SCREEN NEGATIVE; URINE OPIATES LOW UNCONFIRMED POSITIVE; URINE PHENCYCLIDINE SCREEN NEGATIVE
--- NOTE | 2016-12-04 12:12 | RADIOLOGY REPORT (SQ) ---
EXAM DESCRIPTION: U/S NON OB PEL TV W/DOPPLER COMPLETED DATE/TIME: 12/04/2016 11:52 am REASON FOR STUDY: pelvic pain syncope COMPARISON: None. TECHNIQUE: Dynamic and static grayscale images acquired of the pelvis via transvaginal approach and recorded on PACS. Additional selected color Doppler and spectral images recorded. LIMITATIONS: None. FINDINGS: UTERUS: Contour normal. No mass. ENDOMETRIAL STRIPE: There is a small amount of fluid within the endometrial canal. CERVIX: No nabothian cysts. RIGHT OVARY: Absent. RIGHT OVARY DOPPLER: Not applicable LEFT OVARY: No abnormal masses. 35 x 28 x 34 mm. LEFT OVARY DOPPLER: Normal arterial vascular flow without evidence for torsion. FREE FLUID: None noted. OTHER: No other significant finding. MEASUREMENTS: UTERUS: 80 x 44 x 41 mm ENDOMETRIAL STRIPE: 8 mm RIGHT OVARY: Absent LEFT OVARY: 35 x 28 x 34 mm. IMPRESSION: NORMAL TRANSVAGINAL PELVIC ULTRASOUND. TECHNICAL DOCUMENTATION: JOB ID: [id number] [employer]- All Rights Reserved
[2016-12-04 13:45] VITALS: BP 120/72
--- NOTE | 2016-12-04 21:24 | EKG REPORT ---
SEVERITY:- BORDERLINE ECG - SINUS TACHYCARDIA BORDERLINE Q WAVES IN INFERIOR LEADS INFERIOR Q WAVES, PROBABLY NORMAL VARIATION : Confirmed by: Karlos Jacobs 04-Dec-2016 21:23:51
== END 2016-12-04 13:30 | disposition home or self-care (01) ==
LOC: ER 09:26
DX: R55 Syncope and collapse (principal); R10.9 Unspecified abdominal pain; F17.200 Nicotine dependence, unspecified, uncomplicated
CPT/HCPCS: 36415; 51701; 71010; 76830; 80053; 80307; 81001; 81025; 83690; 85025; 93005; 93010; 93976; 99285

== ENCOUNTER 2017-01-06 17:11 | Emergency (ER) | payer MEDICARE, MEDICAID ==
--- NOTE | 2017-01-06 17:39 | ER Document Report ---
ED GI/ - General Chief Complaint: Flank Pain Stated Complaint: BACK PAIN Time Seen by Provider: 01/06/17 17:22 Notes: Patient is complaining of pain in the right flank region since yesterday. She says it is her kidney that is hurting. She attributes it to her wrestling with another person and falling on that person's fist in her right flank. This morning, she has noted frequent urination, but has not noted any blood in her urine. Has some urinary frequency but no blood in urine. Says that she has vomited this afternoon. No diarrhea. Also says she was running a fever but no obvious other source. Denies sore throat. No significant cough or chest congestion. TRAVEL OUTSIDE OF THE [place] IN LAST 30 DAYS: No - Related Data Allergies/Adverse Reactions: bupropion HCl [From Wellbutrin] Allergy (Verified 12/04/16 09:36) VOMITING divalproex sodium [From Depakote] Allergy (Verified 12/04/16 09:36) VOMITING haloperidol [From Haldol] Allergy (Verified 12/04/16 09:36) Distonic Reaction olanzapine [From Zyprexa] Allergy (Verified 12/04/16 09:36) Rash topiramate [From Topamax] Allergy (Verified 12/04/16 09:36) Speech problems, drooling Past Medical History - Social History Smoking Status: Current Some Day Smoker Cigarette use (# per day): Yes Family History: Reviewed & Not Pertinent, CAD, DM Pulmonary Medical History: Reports: Hx Asthma Endocrine Medical History: Reports: Hx Diabetes Mellitus Type 2 Renal/ Medical History: Reports: Hx Kidney Stones, Hx Ovarian Cysts Psychiatric Medical History: Reports: Hx Anxiety, Hx Bipolar Disorder, Hx Depression, Hx Personality Disorder, Hx Post Traumatic Stress Disorder Past Surgical History: Reports: Hx Section - 04/24/15, Hx Cholecystectomy, Hx Gynecologic Surgery - right ovary removed 09/03/13 - Immunizations Immunizations up to date: Yes Hx Diphtheria, Pertussis, Tetanus Vaccination: Yes - unknown Review of Systems - Review of Systems Notes: REVIEW OF SYSTEMS: CONSTITUTIONAL : Says she had a fever. EENT: Denies eye, ear, nose or mouth or throat pain or other symptoms. CARDIOVASCULAR: Denies chest pain. RESPIRATORY: Denies cough, chest congestion, or shortness of breath. GASTROINTESTINAL: Denies abdominal pain or diarrhea. Has had some nausea and vomiting. GENITOURINARY: Denies difficulty or painful urinating, blood in urine. Has had some urinary frequency, however. MUSCULOSKELETAL: Denies back or neck pain. Denies joint pain or swelling. SKIN: Denies rash or skin lesions. NEUROLOGICAL: Denies LOC or altered mental status. Denies headache. Denies sensory loss or motor deficits. ALL OTHER SYSTEMS REVIEWED AND NEGATIVE. Physical Exam - Vital signs Vitals: Temp 100.1 F 01/06/17 17:22 Interpretation: Tachycardic - Mild, Febrile - Notes Notes: PHYSICAL EXAMINATION: GENERAL: Well-appearing, in no acute distress. Moves about well on the stretcher. Vital signs show a slight tachycardia and a low-grade fever. HEAD: Atraumatic, normocephalic. EYES: Pupils equal round and reactive to light, extraocular movements intact. ENT: oropharynx clear without exudates. Moist mucous membranes. NECK: Normal range of motion, supple. LUNGS: Breath sounds clear and equal bilaterally. HEART: Regular rate and rhythm without murmurs. ABDOMEN: Soft, nontender. No guarding or rebound. BACK: Tender to percussion in the lower right flank, somewhat lower than the kidney region. No other back tenderness. EXTREMITIES: Normal range of motion without pain. NEUROLOGICAL: Normal speech, normal gait. Normal sensory, motor, and reflex exams. Awake, alert, and oriented x3. Cranial nerves normal. PSYCH: Normal mood, normal affect. SKIN: Warm, dry, no rashes. Course - Vital Signs Vital signs: Temp Pulse Resp BP Pulse Ox 99.2 F 20 150/91 H 98 01/06/17 19:33 01/06/17 19:33 01/06/17 19:33 01/06/17 19:33 - Laboratory Result Diagrams: 01/06/17 17:50 01/06/17 17:50 Laboratory results interpreted by me: 01/06/17 01/06/17 01/06/17 17:22 17:50 17:50 RDW 15.0 H Potassium 3.5 L Glucose 145 H AST 64 H ALT 102 H Ur Leukocyte Esterase TRACE H Discharge - Discharge Clinical Impression: Contusion of right side of back Qualifiers: Encounter type: initial encounter Qualified Code(s): S20.221A - Contusion of right back wall of thorax, initial encounter Fever Qualifiers: Fever type: unspecified Qualified Code(s): R50.9 - Fever, unspecified Condition: Stable Disposition: HOME, SELF-CARE Additional Instructions: Flank Pain We weren't able to prove an exact cause for your flank pain. Pain in the flank can be caused by a muscle strain or spasm. Sometimes a kidney stone causes pain, but can't be found on our tests. Infection in the kidney should be evident on a urine test. Early shingles can occasionally cause flank pain, without the rash that proves the diagnosis. On rare occasions, disease of the pancreas, aorta, spleen, or colon can create pain in the flank. At this time, there's no evidence of a dangerous condition, and it seems safe for you to be at home. If the pain goes away and does not come back, no further testing will be needed. If pain persists, or becomes more severe, we may need to repeat some tests or order additional new testing. Blood in the urine, urgency to urinate frequently, and pain that radiates to the groin can indicate a kidney stone. Fever may mean that the pain is due to infection, either of the kidney or the colon (diverticulitis). If your pain is early shingles, you should develop an eruption of blisters in the painful area within a few days. Call the doctor or return if you have pain that is spreading or becoming more severe, pain that does not resolve with time, fever, or any other new symptoms. Contusion right back and flank: Your injury has resulted in a contusion -- a crushing of the deep tissues. No injury to important structures was detected during the physician's exam. Contusions vary in the amount of pain they cause, and in the length of time required for healing. Typically, the area will become bruised, and will remain painful to touch for two or three weeks. However, most patients are back to working and playing within a few days. After the initial period of rest and cold-packs, your symptoms (together with the doctor's recommendations) will determine how rapidly you can get back to full activity. Usually this means "do what feels okay, but don't do things that hurt." If re-examination was recommended, it's important to follow up as instructed. Call the doctor or return any time if pain increases, if swelling becomes severe, if you develop numbness or weakness in an injured extremity, or if any other alarming symptoms occur. FEVER: Fever is the body's reaction to infection. Fever can also occur with illnesses that create fever-producing substances in the body. By itself, fever is not harmful. It helps the body fight invading germs. We are more concerned with: (1) What's causing the fever? (2) How can we keep you more comfortable until the fever goes away? Early in an illness, symptoms are often so vague that a diagnosis can't be made. If the doctor hasn't identified a clear cause for your fever, you will probably develop new symptoms within the next two days. Contact the doctor if you develop severe worsening headache, rash, chest pain, cough with yellow or green sputum, difficulty breathing, abdominal pain, or other new symptoms. There is no reason to treat a fever if you're comfortable. If the fever is causing aches, headache, and fatigue, you can treat it with ibuprofen (Advil , Nuprin, etc) or acetaminophen (Tylenol). Follow the directions on the bottle. Get plenty of liquids (three quarts per day). Rest. Physical work or sports will raise the temperature higher and make you feel much worse. Dress lightly. If you're chilling, this means the temperature is trying to go higher. Take ibuprofen or acetaminophen. When you feel sweaty and "feverish" the temperature is coming down. If the fever doesn't go away within two days or if you become more ill, call the doctor or return at once for re-examination. NORMAL EXAM AND WORKUP: At this time, with the exception of fever, your examination and workup show no significant abnormality. No significant abnormal physical findings were noted. All laboratory, EKG, and imaging (x-ray, CT scans, ultrasound) studies that were ordered show no significant abnormality. Although your examination and all studies that were ordered showed no significant abnormal finding, there are no examinations and no studies that are 100% accurate. There is always the possibility that some abnormality could exist and not be detected with physical examination or within the limits and capabilities of laboratory and other studies. You should return or follow up as you were instructed on your visit today for further evaluation if your symptoms do not resolve. VIRAL SYNDROME: The physician has diagnosed a likely viral infection. Viruses not only cause "colds," but can cause many different symptoms including generalized aching, fever, headache, cough, diarrhea, nausea, vomiting, and fatigue. The treatment, for the most part, is simply relief of symptoms. This means that antibiotics are usually not given. Rest, fluids, pain medications and, occasionally, medication for the specific symptoms that are most bothersome will be prescribed. Use good handwashing to avoid passing the virus to others. Shared toys should be cleaned with disinfectant. Clean the toilets, sinks, and counter surfaces in bathrooms. Launder clothing in hot water. Contact the physician if you develop any new or unusual symptoms such as severe headache, stiff neck, high fever, chest pain, productive cough, or shortness of breath. You should be rechecked if you don't see marked improvement within seven to 10 days. USE OF ACETAMINOPHEN (Tylenol): Acetaminophen may be taken for pain relief or fever control. It's much safer than aspirin, offering a wider range of "safe" dosages. It is safe during . Some brand names are Tylenol, Panadol, Datril, Anacin 3, Tempra, and Liquiprin. Acetaminophen can be repeated every four hours. The following are maximum recommended dosages: WEIGHT Dose Drops Elixir Chewable( 80mg) (LBS.) drprs=droppers tsp=teaspoon >89 pounds or adults 650 mg to 900 mg Acetaminophen can be repeated every four hours. Maximum dose not to exceed 4000 mg a day. These maximum recommended dosages are slightly higher than the dosages written on the product container, but these dosages are very safe and below the toxic dosage for acetaminophen. Antinausea Medication You have been given a medication to suppress nausea and vomiting. This type of medication can be given as a shot, pill, or suppository. It will usually last for many hours. Pills and shots usually last six to eight hours, suppositories last about 12 hours. For the typical illness, only one or two doses of the medication may be necessary. Mild lightheadedness may occur. This type of medicine can cause drowsiness. Do not drive or operate dangerous machinery while under its influence. Do not mix with alcohol. See your doctor at once if you have muscle spasms or tightness, or uncontrollable motions (particularly of the neck, mouth, or jaw). Persistent vomiting or severe lightheadedness should also be evaluated by the physician. FOLLOW-UP CARE: If you have been referred to a physician for follow-up care, call the physician s office for an appointment as you were instructed or within the next two days. If you experience worsening or a significant change in your symptoms, notify the physician immediately or return to the Emergency Department at any time for re-evaluation. I cannot find a source for your fever at this time. It may be a viral illness Drink plenty of fluids and take Tylenol for fever and aches and pains. I am prescribing an antinausea medicine as needed. If your symptoms worsen or you develop new symptoms of concern, return for us to reevaluate your condition. Prescriptions: Promethazine HCl [Phenergan 25 mg Tablet] 1 - 2 tab PO Q6H PRN #15 tablet PRN Reason: Referrals: RADHA JESUS MD [Primary Care Provider] - Follow up as needed
[2017-01-06 17:52] LABS: APPEARANCE,URINE SLIGHTLY-CLOUDY; BILIRUBIN,URINE NEGATIVE (NEGATIVE); GLUCOSE, URINE NEGATIVE (NEGATIVE); KETONES,URINE NEGATIVE (NEGATIVE); LEUKOCYTE ESTERASE,URINE TRACE (NEGATIVE); NITRITE,URINE NEGATIVE (NEGATIVE); PROTEIN,URINE NEGATIVE (NEGATIVE); URINE SPECIFIC GRAVITY 1.014; UROBILINOGEN,URINE NEGATIVE mg/dL (<2.0)
[2017-01-06 18:08] LABS: ABSOLUTE EOSINOPHILS # (AUTO) 0.1 10^3/uL (0.0-0.6); ABSOLUTE LYMPHOCYTES (AUTO) 1.8 10^3/uL (0.5-4.7); ABSOLUTE MONOCYTES (AUTO) 0.6 10^3/uL (0.1-1.4); BASOPHILS % (AUTO) 0.2 % (0-2); EOSINOPHILS % (AUTO) 0.8 % (0-6); HEMATOCRIT 41.5 % (36.0-47.0); HEMOGLOBIN 13.8 g/dL (12.0-15.5); HGB HCT DIFFERENCE -0.1; LYMPHOCYTES % (AUTO) 23.8 % (13-45); MEAN CORPUSCULAR HEMOGLOBIN 28.7 pg (27.0-33.4); MEAN CORPUSCULAR HGB CONC 33.3 g/dL (32.0-36.0); MEAN CORPUSCULAR VOLUME 86 fl (80-97); MONOCYTES % (AUTO) 8.1 % (3-13); RED BLOOD COUNT 4.82 10^6/uL (3.72-5.28); SEGMENTED NEUTROPHILS % (AUTO) 67.1 % (42-78); WHITE BLOOD COUNT 7.5 10^3/uL (4.0-10.5)
[2017-01-06 18:26] LABS: ALANINE AMINOTRANSFERASE 102 U/L (9-52); ALBUMIN 4.6 g/dL (3.5-5.0); ALKALINE PHOSPHATASE 77 U/L (38-126); ANION GAP 14 (5-19); ASPARTATE AMINO TRANSFERASE 64 U/L (14-36); BILIRUBIN,DIRECT 0.3 mg/dL (0.0-0.4); BILIRUBIN,TOTAL 0.4 mg/dL (0.2-1.3); BLOOD UREA NITROGEN 7 mg/dL (7-20); CALCIUM 9.7 mg/dL (8.4-10.2); CARBON DIOXIDE 24 mmol/L (22-30); CHLORIDE 106 mmol/L (98-107); CREATININE RESULT 0.68 mg/dL (0.52-1.25); GLUCOSE 145 mg/dL (75-110); LIPASE 130.6 U/L (23-300); POTASSIUM 3.5 mmol/L (3.6-5.0); SODIUM 144.1 mmol/L (137-145); TOTAL PROTEIN 7.8 g/dL (6.3-8.2)
[2017-01-06] MEDS ORDERED: ONDANSETRON 4 MG TAB.RAPDIS PO ONE (18:42)
[2017-01-06] MEDS ORDERED: ACETAMINOPHEN 325 MG TABLET PO ONE (18:42)
[2017-01-06 19:46] VITALS: BP 150/91
== END 2017-01-06 19:46 | disposition home or self-care (01) ==
LOC: ER 17:11
DX: S20.221A Contusion of right back wall of thorax, initial encounter (principal); R50.9 Fever, unspecified; R10.9 Unspecified abdominal pain; M54.9 Dorsalgia, unspecified; F17.210 Nicotine dependence, cigarettes, uncomplicated; X58.XXXA Exposure to other specified factors, initial encounter
CPT/HCPCS: 99284; 36415; 87086; 83690; 84703; 85025; 80053; 81001; A9270 ×2; S0119

== ENCOUNTER 2017-02-03 10:23 | Emergency (ER) | payer MEDICARE, MEDICAID ==
--- NOTE | 2017-02-03 10:34 | ER Document Report ---
ED Medical Screen (RME) - General Chief Complaint: Vaginal Pain Stated Complaint: ABDOMINAL PAIN Time Seen by Provider: 02/03/17 10:32 Notes: Patient complains of abdominal cramping and vaginal bleeding. This is been going on for approximately 2 days. She also states that she may have a tampon lodged in her vagina. She states that she was drinking one night recently and had intercourse and cannot remember if she removed the tampon. TRAVEL OUTSIDE OF THE [place] IN LAST 30 DAYS: No - Related Data Allergies/Adverse Reactions: bupropion HCl [From Wellbutrin] Allergy (Verified 02/03/17 10:28) VOMITING divalproex sodium [From Depakote] Allergy (Verified 02/03/17 10:28) VOMITING haloperidol [From Haldol] Allergy (Verified 02/03/17 10:28) Distonic Reaction olanzapine [From Zyprexa] Allergy (Verified 02/03/17 10:28) Rash topiramate [From Topamax] Allergy (Verified 02/03/17 10:28) Speech problems, drooling Past Medical History - Social History Family history: Reviewed & Not Pertinent Pulmonary Medical History: Reports: Hx Asthma Endocrine Medical History: Reports: Hx Diabetes Mellitus Type 2 Renal/ Medical History: Reports: Hx Kidney Stones, Hx Ovarian Cysts. Denies: Hx Peritoneal Dialysis Psychiatric Medical History: Reports: Hx Anxiety, Hx Bipolar Disorder, Hx Depression, Hx Personality Disorder, Hx Post Traumatic Stress Disorder Past Surgical History: Reports: Hx Section - 04/24/15, Hx Cholecystectomy, Hx Gynecologic Surgery - right ovary removed 09/03/13 - Immunizations Immunizations up to date: Yes Hx Diphtheria, Pertussis, Tetanus Vaccination: Yes - unknown Physical Exam - Vital signs Vitals: Temp Pulse Resp BP Pulse Ox 98.4 F 93 20 95/58 L 97 02/03/17 10:27 02/03/17 10:27 02/03/17 10:27 02/03/17 10:27 02/03/17 10:27 Course - Vital Signs Vital signs: Temp Pulse Resp BP Pulse Ox 98.4 F 93 20 95/58 L 97 02/03/17 10:27 02/03/17 10:27 02/03/17 10:27 02/03/17 10:27 02/03/17 10:27
[2017-02-03 11:04] LABS: ABSOLUTE EOSINOPHILS # (AUTO) 0.2 10^3/uL (0.0-0.6); ABSOLUTE LYMPHOCYTES (AUTO) 2.8 10^3/uL (0.5-4.7); ABSOLUTE MONOCYTES (AUTO) 0.5 10^3/uL (0.1-1.4); ABSOLUTE NEUT (AUTO) 6.8 10^3/uL (1.7-8.2); BASOPHILS % (AUTO) 0.4 % (0-2); EOSINOPHILS % (AUTO) 2.2 % (0-6); HEMATOCRIT 41.7 % (36.0-47.0); HEMOGLOBIN 14.2 g/dL (12.0-15.5); HGB HCT DIFFERENCE 0.9; LYMPHOCYTES % (AUTO) 27.4 % (13-45); MEAN CORPUSCULAR HEMOGLOBIN 28.9 pg (27.0-33.4); MEAN CORPUSCULAR HGB CONC 34.1 g/dL (32.0-36.0); MEAN CORPUSCULAR VOLUME 85 fl (80-97); RED BLOOD COUNT 4.93 10^6/uL (3.72-5.28); RED CELL DISTRIBUTION WIDTH 15.3 % (11.5-14.0); WHITE BLOOD COUNT 10.4 10^3/uL (4.0-10.5)
[2017-02-03 11:16] LABS: APPEARANCE,URINE SLIGHTLY-CLOUDY; BILIRUBIN,URINE NEGATIVE (NEGATIVE); GLUCOSE, URINE NEGATIVE (NEGATIVE); KETONES,URINE NEGATIVE (NEGATIVE); LEUKOCYTE ESTERASE,URINE SMALL (NEGATIVE); NITRITE,URINE NEGATIVE (NEGATIVE); PROTEIN,URINE NEGATIVE (NEGATIVE); URINE SPECIFIC GRAVITY 1.016; UROBILINOGEN,URINE NEGATIVE mg/dL (<2.0)
[2017-02-03 11:28] LABS: ALANINE AMINOTRANSFERASE 111 U/L (9-52); ALBUMIN 4.4 g/dL (3.5-5.0); ALKALINE PHOSPHATASE 90 U/L (38-126); ANION GAP 13 (5-19); ASPARTATE AMINO TRANSFERASE 92 U/L (14-36); BILIRUBIN,DIRECT 0.4 mg/dL (0.0-0.4); BILIRUBIN,TOTAL 0.7 mg/dL (0.2-1.3); BLOOD UREA NITROGEN 14 mg/dL (7-20); CALCIUM 9.9 mg/dL (8.4-10.2); CARBON DIOXIDE 23 mmol/L (22-30); CHLORIDE 106 mmol/L (98-107); CREATININE RESULT 0.64 mg/dL (0.52-1.25); GLUCOSE 96 mg/dL (75-110); POTASSIUM 4.3 mmol/L (3.6-5.0); SODIUM 141.5 mmol/L (137-145); TOTAL PROTEIN 7.7 g/dL (6.3-8.2)
--- NOTE | 2017-02-03 11:40 | ER Document Report ---
HPI - HPI Onset: This morning Onset/Duration: Sudden Pain Level: 4 Associated Symptoms: Other - vag bleeding Exacerbated by: Denies Relieved by: Denies Notes: 21-year-old female presents with possible retained tampon. Patient states she last used a tampon about a week ago and does not remember if she pulled it out or not. Patient states she cannot find it now. She does report a minimal amount of vaginal bleeding. No other complaints - ROS Systems Reviewed and Negative: Yes All other systems reviewed and negative - CARDIOVASCULAR Cardiovascular: DENIES: Chest pain - REPRODUCTIVE Reproductive: DENIES: : - DERM Skin Color: Normal Past Medical History - General Information source: Patient - Social History Smoking Status: Current Every Day Smoker Chew tobacco use (# tins/day): - 5 Frequency of alcohol use: Occasional Drug Abuse: None Family History: Reviewed & Not Pertinent, CAD, DM Pulmonary Medical History: Reports: Hx Asthma Endocrine Medical History: Reports: Hx Diabetes Mellitus Type 2 Renal/ Medical History: Reports: Hx Kidney Stones, Hx Ovarian Cysts. Denies: Hx Peritoneal Dialysis Psychiatric Medical History: Reports: Hx Anxiety, Hx Bipolar Disorder, Hx Depression, Hx Personality Disorder, Hx Post Traumatic Stress Disorder Past Surgical History: Reports: Hx Section - 04/24/15, Hx Cholecystectomy, Hx Gynecologic Surgery - right ovary removed 09/03/13 - Immunizations Immunizations up to date: Yes Hx Diphtheria, Pertussis, Tetanus Vaccination: Yes - unknown Vertical Provider Document - CONSTITUTIONAL Agree With Documented VS: Yes Exam Limitations: No Limitations - INFECTION CONTROL TRAVEL OUTSIDE OF THE [place] IN LAST 30 DAYS: No - HEENT HEENT: Atraumatic - NECK Neck: Normal Inspection - RESPIRATORY Respiratory: Breath Sounds Normal O2 Sat by Pulse Oximetry: 97 - CARDIOVASCULAR Cardiovascular: Regular Rate, Regular Rhythm - GI/ABDOMEN Gastrointestinal: Abdomen Soft, Abdomen Non-Tender - REPRODUCTIVE Notes: Pelvic exam chaperoned by DOREEN Gibson. Using speculum, I could not visualize any foreign body in the vaginal vault. There is a minimal amount of thin drainage with slight blood-tinged, otherwise it is a normal pelvic exam. - BACK Back: Normal Inspection - MUSCULOSKELETAL/EXTREMETIES Musculoskeletal/Extremeties: RUBÉN JASSO - NEURO Level of Consciousness: Awake, Alert Course - Re-evaluation Re-evalutation: 02/03/17 11:38 Pelvic exam did not reveal any obvious foreign body. Of note, the patient did have a positive urine test here. I have discussed this with the patient along with the need to follow-up with [facility] RESEARCH ENGINEER. There is no indication for any further workup at this time. Will cover with Keflex for mild UTI. 02/03/17 11:38 - Vital Signs Vital signs: Temp Pulse Resp BP Pulse Ox 98.4 F 93 20 95/58 L 97 02/03/17 10:27 02/03/17 10:27 02/03/17 10:27 02/03/17 10:27 02/03/17 10:27 - Laboratory Result Diagrams: 02/03/17 10:40 02/03/17 10:40 Laboratory results interpreted by me: 02/03/17 02/03/17 02/03/17 10:40 10:40 10:40 RDW 15.3 H AST 92 H ALT 111 H Urine Blood LARGE H Ur Leukocyte Esterase SMALL H Urine HCG, Qual POSITIVE H Discharge - Discharge Clinical Impression: , UTI (urinary tract infection) Condition: Good Disposition: HOME, SELF-CARE Instructions: Cephalexin ([facility]), Urinary Tract Infection ([facility]) Additional Instructions: Follow-up with your AERONAUTICAL RESEARCH ENGINEER doctor. Return to the emergency department if worse or for any other problems. Prescriptions: Cephalexin Monohydrate [Keflex 500 mg Capsule] 500 mg PO Q6H 5 Days capsule Referrals: RADHA JESUS MD [Primary Care Provider] - Follow up as needed
[2017-02-03 11:54] VITALS: BP 117/66
== END 2017-02-03 11:53 | disposition home or self-care (01) ==
LOC: ER 10:23
DX: O23.40 Unspecified infection of urinary tract in pregnancy, unspecified trimester (principal); O46.90 Antepartum hemorrhage, unspecified, unspecified trimester; O99.330 Smoking (tobacco) complicating pregnancy, unspecified trimester; O99.519 Diseases of the respiratory system complicating pregnancy, unspecified trimester; J45.909 Unspecified asthma, uncomplicated; O24.119 Pre-existing type 2 diabetes mellitus, in pregnancy, unspecified trimester; E11.9 Type 2 diabetes mellitus without complications; Z3A.00 Weeks of gestation of pregnancy not specified; Z87.442 Personal history of urinary calculi; Z87.42 Personal history of other diseases of the female genital tract; Z90.721 Acquired absence of ovaries, unilateral
CPT/HCPCS: 36415; 80053; 81001; 81025; 85025; 99283

== ENCOUNTER 2017-02-09 22:49 | Emergency (ER) | payer MEDICARE, MEDICAID ==
--- NOTE | 2017-02-10 00:12 | ER Document Report ---
ED GI/ - General Chief Complaint: Vag Bleeding, +preg <12wks Stated Complaint: POSSIBLE VAGINAL BLEEDING Time Seen by Provider: 02/10/17 00:06 Mode of Arrival: Ambulatory Information source: Patient TRAVEL OUTSIDE OF THE [place] IN LAST 30 DAYS: No - HPI Patient complains to provider of: Vaginal bleeding Onset: This morning Timing/Duration: Sudden Quality of pain: Cramping - SLIGHT Severity at maximum: Moderate Severity in ED: Moderate Context: - POS. URINE HCG 02/03 Location: Pelvis Vaginal bleeding (Compared to normal period): Similar Menstrual period history: Sexual history: Active Exacerbated by: Denies Relieved by: Denies Similar symptoms previously: No Recently seen / treated by doctor: Yes - VANGIE Wray, 02/03 - Related Data Allergies/Adverse Reactions: bupropion HCl [From Wellbutrin] Allergy (Verified 02/03/17 10:28) VOMITING divalproex sodium [From Depakote] Allergy (Verified 02/03/17 10:28) VOMITING haloperidol [From Haldol] Allergy (Verified 02/03/17 10:28) Distonic Reaction olanzapine [From Zyprexa] Allergy (Verified 02/03/17 10:28) Rash topiramate [From Topamax] Allergy (Verified 02/03/17 10:28) Speech problems, drooling Past Medical History - General Information source: Patient - Social History Smoking Status: Former Smoker Cigarette use (# per day): No Chew tobacco use (# tins/day): No Frequency of alcohol use: None Drug Abuse: None Lives with: Family Family History: Reviewed & Not Pertinent, CAD, DM - Past Medical History Cardiac Medical History: Reports: None Pulmonary Medical History: Reports: Hx Asthma EENT Medical History: Reports: None Neurological Medical History: Reports: None Endocrine Medical History: Reports: Hx Diabetes Mellitus Type 2 Renal/ Medical History: Reports: Hx Kidney Stones, Hx Ovarian Cysts. Denies: Hx Peritoneal Dialysis GI Medical History: Reports: None Psychiatric Medical History: Reports: Hx Anxiety, Hx Bipolar Disorder, Hx Depression, Hx Personality Disorder, Hx Post Traumatic Stress Disorder Past Surgical History: Reports: Hx Section - 04/24/15, Hx Cholecystectomy, Hx Gynecologic Surgery - right ovary removed 09/03/13 - Immunizations Immunizations up to date: Yes Hx Diphtheria, Pertussis, Tetanus Vaccination: Yes - unknown Review of Systems - Review of Systems Constitutional: No symptoms reported EENT: No symptoms reported Cardiovascular: No symptoms reported Respiratory: No symptoms reported Gastrointestinal: Nausea Genitourinary: See HPI Female Genitourinary: See HPI Musculoskeletal: No symptoms reported Skin: No symptoms reported Neurological/Psychological: No symptoms reported Physical Exam - Vital signs Vitals: Temp Pulse Resp BP Pulse Ox 98.1 F 77 12 105/51 L 99 02/09/17 23:26 02/09/17 23:26 02/09/17 23:26 02/09/17 23:02/09/17 23:26 Interpretation: Normal - General General appearance: Appears well, Alert In distress: None - HEENT Head: Normocephalic Eyes: Normal Conjunctiva: Normal Ears: Normal Nasal: Normal Mouth/Lips: Normal Mucous membranes: Normal - Respiratory Respiratory status: No respiratory distress - Cardiovascular Rhythm: Regular - Abdominal Inspection: Obese - Extremities General upper extremity: Normal inspection General lower extremity: Normal inspection - Neurological Neuro grossly intact: Yes Cognition: Normal Orientation: AAOx4 - Psychological Associated symptoms: Normal affect, Normal mood - Skin Skin Temperature: Warm Skin Moisture: Dry Skin Color: Normal Skin Turgor: Elastic Course - Vital Signs Vital signs: Temp Pulse Resp BP Pulse Ox 98.1 F 77 12 105/51 L 99 02/09/17 23:26 02/09/17 23:26 02/09/17 23:26 02/09/17 23:26 02/09/17 23:26 - Laboratory Result Diagrams: 02/10/17 00:28 Laboratory results interpreted by me: 02/10/17 02/10/17 00:28 00:28 WBC 11.0 H RDW 15.4 H Beta HCG, Quant 9.63 H Discharge - Discharge Clinical Impression: Miscarriage, threatened, early Condition: Stable Disposition: HOME, SELF-CARE Instructions: Threatened Miscarriage ([facility]) Additional Instructions: REST, DRINK PLENTY OF FLUIDS. YOU MAY TAKE TYLENOL OR IBUPROFEN IF NEEDED FOR PAIN. RETURN TO E.R. OR FOLLOW UP WITH YOUR PRIMARY CARE PROVIDER IF NOT IMPROVED IN 48 HOURS, OR SOONER IF WORSE ANY TIME. Referrals: ELYSE SHEA DO [Primary Care Provider] - Follow up as needed
[2017-02-10 00:43] LABS: ABSOLUTE EOSINOPHILS # (AUTO) 0.2 10^3/uL (0.0-0.6); ABSOLUTE LYMPHOCYTES (AUTO) 3.5 10^3/uL (0.5-4.7); ABSOLUTE MONOCYTES (AUTO) 0.6 10^3/uL (0.1-1.4); ABSOLUTE NEUT (AUTO) 6.5 10^3/uL (1.7-8.2); BASOPHILS % (AUTO) 0.4 % (0-2); HEMATOCRIT 39.5 % (36.0-47.0); HEMOGLOBIN 13.4 g/dL (12.0-15.5); HGB HCT DIFFERENCE 0.7; LYMPHOCYTES % (AUTO) 32.2 % (13-45); MEAN CORPUSCULAR HEMOGLOBIN 29.1 pg (27.0-33.4); MEAN CORPUSCULAR VOLUME 86 fl (80-97); MONOCYTES % (AUTO) 5.8 % (3-13); RED BLOOD COUNT 4.62 10^6/uL (3.72-5.28); RED CELL DISTRIBUTION WIDTH 15.4 % (11.5-14.0); SEGMENTED NEUTROPHILS % (AUTO) 59.6 % (42-78)
[2017-02-10 02:40] VITALS: BP 122/76
== END 2017-02-10 02:26 | disposition home or self-care (01) ==
LOC: ER 22:49
DX: O20.0 Threatened abortion (principal); O26.90 Pregnancy related conditions, unspecified, unspecified trimester; R11.0 Nausea; R25.2 Cramp and spasm; O99.519 Diseases of the respiratory system complicating pregnancy, unspecified trimester; J45.909 Unspecified asthma, uncomplicated; O24.119 Pre-existing type 2 diabetes mellitus, in pregnancy, unspecified trimester; E11.9 Type 2 diabetes mellitus without complications; Z3A.00 Weeks of gestation of pregnancy not specified; Z88.8 Allergy status to other drugs, medicaments and biological substances; Z87.891 Personal history of nicotine dependence
CPT/HCPCS: 36415; 84702; 85025; 86900; 86901; 99284

== ENCOUNTER 2017-03-24 | Emergency (ER) | payer MEDICARE, MEDICAID ==
[2017-03-24 00:45] LABS: AMORPHOUS SEDIMENT,URINE TRACE /HPF; APPEARANCE,URINE CLOUDY; BILIRUBIN,URINE NEGATIVE (NEGATIVE); CALCIUM OXALATE CRYSTALS,URINE FEW /HPF; GLUCOSE, URINE NEGATIVE (NEGATIVE); KETONES,URINE NEGATIVE (NEGATIVE); LEUKOCYTE ESTERASE,URINE LARGE (NEGATIVE); NITRITE,URINE NEGATIVE (NEGATIVE); PROTEIN,URINE NEGATIVE (NEGATIVE); URINE SPECIFIC GRAVITY 1.021; UROBILINOGEN,URINE NEGATIVE mg/dL (<2.0)
--- NOTE | 2017-03-24 01:47 | ER Document Report ---
ED General - General Chief Complaint: Abdominal Pain Stated Complaint: TROUBLE URINATING,BACK PAIN Time Seen by Provider: 03/24/17 01:41 Notes: Patient is a 21-year-old female presents emergency department complaining of difficulty with urination for the past 3 days with associated bilateral flank pain for the past week and a left lower quadrant abdominal pain for 1 month. Past medical history significant for kidney stones, ovarian cysts. TRAVEL OUTSIDE OF THE [place] IN LAST 30 DAYS: No - Related Data Allergies/Adverse Reactions: bupropion HCl [From Wellbutrin] Allergy (Verified 03/24/17 00:02) VOMITING divalproex sodium [From Depakote] Allergy (Verified 03/24/17 00:02) VOMITING haloperidol [From Haldol] Allergy (Verified 03/24/17 00:02) Distonic Reaction olanzapine [From Zyprexa] Allergy (Verified 03/24/17 00:02) Rash topiramate [From Topamax] Allergy (Verified 03/24/17 00:02) Speech problems, drooling Past Medical History - Social History Smoking Status: Unknown if Ever Smoked Family History: Reviewed & Not Pertinent, CAD, DM Pulmonary Medical History: Reports: Hx Asthma Endocrine Medical History: Reports: Hx Diabetes Mellitus Type 2 Renal/ Medical History: Reports: Hx Kidney Stones, Hx Ovarian Cysts. Denies: Hx Peritoneal Dialysis Psychiatric Medical History: Reports: Hx Anxiety, Hx Bipolar Disorder, Hx Depression, Hx Personality Disorder, Hx Post Traumatic Stress Disorder Past Surgical History: Reports: Hx Section - 04/24/15, Hx Cholecystectomy, Hx Gynecologic Surgery - right ovary removed 09/03/13 - Immunizations Immunizations up to date: Yes Hx Diphtheria, Pertussis, Tetanus Vaccination: Yes - unknown Physical Exam - Vital signs Vitals: Temp Pulse Resp BP Pulse Ox 98.5 F 92 15 133/66 H 98 03/24/17 00:04 03/24/17 00:04 03/24/17 00:04 03/24/17 00:04 03/24/17 00:04 - Notes Notes: PHYSICAL EXAM GENERAL: Alert, interacts well. LUNGS: Clear to auscultation bilaterally, no wheezes, rales, or rhonchi. No respiratory distress. HEART: Regular rate and rhythm. No murmurs, gallops, or rubs. ABDOMEN: Soft, nondistended, nontender. No guarding, rebound, or rigidity.. Bowel sounds present in all 4 quadrants. FEMALE : Normal external exam. No evidence of lesions, lacerations, bruising or vesicles. Speculum exam normal cervix closed. There is evidence of vaginal discharge with odor. No evidence of lesions. No vaginal bleeding. Bimanual exam normal no cervical motion tenderness. No adnexal mass or adnexal tenderness. EXTREMITIES: Moves all 4 extremities spontaneously. No edema, radial and dorsalis pedis pulses 2/4 bilaterally. No cyanosis. NEUROLOGICAL: Alert and oriented x4. Normal speech. PSYCH: Normal affect, normal mood. SKIN: Warm, dry, normal turgor. No rashes or lesions noted. Course - Re-evaluation Re-evalutation: 03/24/17 03:35 Patient is a 21-year-old female who is hemodynamically stable, no acute distress afebrile. Evidence of trichomonas noted on wet mount. Patient with leukoesterase and bacteria in her urine. Given patient's history of kidney stones a CT was ordered and shows evidence of bilateral stones within the kidneys without associated inflammation. With preserved renal function, evidence of stable vital signs without fever, tachycardia or hypotension. Will treat patient for trichomonas and does not require treatment for complicated nephrolithiasis. Patient stable for discharge home. - Vital Signs Vital signs: Temp Pulse Resp BP Pulse Ox 98.4 F 91 18 122/63 98 03/24/17 03:58 03/24/17 03:58 03/24/17 03:58 03/24/17 03:58 03/24/17 03:58 - Laboratory Result Diagrams: 03/24/17 01:58 03/24/17 01:58 Laboratory results interpreted by me: 03/24/17 03/24/17 03/24/17 00:19 01:58 01:58 RDW 14.8 H AST 43 H ALT 63 H Ur Leukocyte Esterase LARGE H Urine Ascorbic Acid 40 H - Diagnostic Test Radiology reviewed: Image reviewed, Reports reviewed Discharge - Discharge Clinical Impression: Trichomonas infection, Pelvic pain Condition: Good Disposition: HOME, SELF-CARE Instructions: Trichomonas Infection ([facility]) Additional Instructions: You have been treated for trichomonas chlamydia and gonorrhea We will call you with your results if you tested positive for chlamydia or gonorrhea. You have been tested for this. Please abstain from sexual intercourse for 10 days and have your partners treated. Prescriptions: Ciprofloxacin HCl [Cipro 500 mg Tablet] 500 mg PO BID #6 tablet Phenazopyridine HCl [Pyridium] 200 mg PO TID #6 tablet Referrals: [facility] [Provider Group] - Follow up as needed
[2017-03-24 02:36] LABS: ABSOLUTE EOSINOPHILS # (AUTO) 0.2 10^3/uL (0.0-0.6); ABSOLUTE LYMPHOCYTES (AUTO) 3.1 10^3/uL (0.5-4.7); ABSOLUTE MONOCYTES (AUTO) 0.7 10^3/uL (0.1-1.4); ABSOLUTE NEUT (AUTO) 5.8 10^3/uL (1.7-8.2); BASOPHILS % (AUTO) 0.4 % (0-2); EOSINOPHILS % (AUTO) 2.2 % (0-6); HEMATOCRIT 40.9 % (36.0-47.0); HEMOGLOBIN 13.8 g/dL (12.0-15.5); HGB HCT DIFFERENCE 0.5; LYMPHOCYTES % (AUTO) 31.4 % (13-45); MEAN CORPUSCULAR HEMOGLOBIN 28.8 pg (27.0-33.4); MEAN CORPUSCULAR HGB CONC 33.9 g/dL (32.0-36.0); MEAN CORPUSCULAR VOLUME 85 fl (80-97); RED CELL DISTRIBUTION WIDTH 14.8 % (11.5-14.0); WHITE BLOOD COUNT 9.8 10^3/uL (4.0-10.5)
[2017-03-24 02:39] LABS: ALANINE AMINOTRANSFERASE 63 U/L (9-52); ALBUMIN 4.5 g/dL (3.5-5.0); ALKALINE PHOSPHATASE 77 U/L (38-126); ANION GAP 14 (5-19); ASPARTATE AMINO TRANSFERASE 43 U/L (14-36); BILIRUBIN,DIRECT 0.3 mg/dL (0.0-0.4); BILIRUBIN,TOTAL 0.5 mg/dL (0.2-1.3); BLOOD UREA NITROGEN 11 mg/dL (7-20); CALCIUM 9.8 mg/dL (8.4-10.2); CARBON DIOXIDE 26 mmol/L (22-30); CHLORIDE 105 mmol/L (98-107); CREATININE RESULT 0.72 mg/dL (0.52-1.25); GLUCOSE 97 mg/dL (75-110); POTASSIUM 3.6 mmol/L (3.6-5.0); SODIUM 144.8 mmol/L (137-145); TOTAL PROTEIN 7.5 g/dL (6.3-8.2)
--- NOTE | 2017-03-24 03:27 | RADIOLOGY REPORT (SQ) ---
EXAM DESCRIPTION: CT LTD RENAL STONE PROTOCOL ON COMPLETED DATE/TIME: 03/24/2017 3:15 am REASON FOR STUDY: flank pain COMPARISON: 09/07/2016 an additional 4 priors TECHNIQUE: CT scan of the abdomen and pelvis performed without intravenous or oral contrast. Images reviewed with lung, soft tissue, and bone windows. Reconstructed coronal and sagittal MPR images revi ewed. All images stored on PACS. All CT scanners at this facility use dose modulation, iterative reconstruction, and/or weight based d osing when appropriate to reduce radiation dose to as low as reasonably achievable (ALARA). [facility]: Dose Right [facility]: CareDose [facility]: Dose Right [facility]: Teradose 4D [facility]: Smart [employer]Trails RADIATION DOSE: Up-to-date CT equipment and radiation dose reduction techniques were employed. CTDIv ol: 18.7 mGy. DLP: 933 mGy-cm.mGy. LIMITATIONS: None. FINDINGS: LOWER CHEST: No significant findings. No nodules or infiltrates. NON-CONTRASTED LIVER, SPLEEN, ADRENALS: Evaluation limited by lack of IV contrast. No identified sign ificant masses. PANCREAS: No masses. No peripancreatic inflammatory changes. GALLBLADDER: Surgically absent. RIGHT KIDNEY AND URETER: No suspicious masses. Assessment limited by lack of IV contrast. Minimal n onobstructive nephrolithiasis No hydronephrosis or hydroureter. LEFT KIDNEY AND URETER: No suspicious masses. Assessment limited by lack of IV contrast. Minimal no nobstructive nephrolithiasis No hydronephrosis or hydroureter. AORTA AND RETROPERITONEUM: No aneurysm. No retroperitoneal masses or adenopathy. BOWEL AND PERITONEAL CAVITY: No obvious masses or inflammatory changes. No free fluid. APPENDIX: Normal. PELVIS, BLADDER, AND ABDOMINAL WALL:No abnormal masses. No free fluid. Bladder normal. BONES: No significant findings. OTHER: No other significant finding. IMPRESSION: Bilateral minimal nonobstructive nephrolithiasis. COMMENT: Quality ID # [id number]: Final reports with documentation of one or more dose reduction techniques (e.g., Automated exposure control, adjustment of the mA and/or kV according to patient size, use of iterative reconstruction technique) TECHNICAL DOCUMENTATION: JOB ID: [id number] [employer]- All Rights Reserved
[2017-03-24] MEDS ORDERED: AZITHROMYCIN 1 GM SUSP PACKET PO ONE (03:36)
[2017-03-24] MEDS ORDERED: CEFTRIAXONE INJ 250 MG VIAL IM ONE (03:36)
[2017-03-24] MEDS ORDERED: LIDOCAINE 1% INJ-PF (10 MG/ML) 30 ML SDV INJ ONE (03:36)
[2017-03-24] MEDS ORDERED: METRONIDAZOLE 500 MG TABLET PO ONE (03:36)
[2017-03-24] MEDS ORDERED: HYDROCODONE/ACETAMINOPHEN 5-325 MG 6 TAB/DSPK PO PRN (03:42)
[2017-03-24 03:51] LABS: CHLAM PCR NOT DETECTED (NOT DETECT)
[2017-03-24 04:25] VITALS: BP 122/63
== END 2017-03-24 04:00 | disposition home or self-care (01) ==
LOC: ER
DX: A59.00 Urogenital trichomoniasis, unspecified (principal); N20.0 Calculus of kidney; R10.2 Pelvic and perineal pain; E11.9 Type 2 diabetes mellitus without complications; J45.909 Unspecified asthma, uncomplicated; Z88.8 Allergy status to other drugs, medicaments and biological substances; Z88.6 Allergy status to analgesic agent; Z87.42 Personal history of other diseases of the female genital tract; Z90.721 Acquired absence of ovaries, unilateral
CPT/HCPCS: 99284; 96372; 36415; 87086; 87210; 85025; 81025; 87088; 80053; 81001; 87491; 87591; 76380; J3490; A9270 ×3; J0696; Q0144

== ENCOUNTER 2017-03-25 17:17 | Emergency (ER) | payer MEDICARE, MEDICAID ==
[2017-03-25] MEDS ORDERED: IBUPROFEN 600 MG TABLET PO ONE (17:43)
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
--- NOTE | 2017-03-25 18:22 | RADIOLOGY REPORT (SQ) ---
EXAM DESCRIPTION: HAND RIGHT 3 VIEWS COMPLETED DATE/TIME: 03/25/2017 6:10 pm REASON FOR STUDY: PAIN COMPARISON: None. EXAM PARAMETERS: NUMBER OF VIEWS: Three views. TECHNIQUE: AP, lateral and oblique radiographic images acquired of the right hand. LIMITATIONS: None. FINDINGS: MINERALIZATION: Normal. BONES: No acute fracture or dislocation. No worrisome bone lesions. JOINTS: No effusions. SOFT TISSUES: No soft tissue swelling. No foreign body. OTHER: No other significant finding. IMPRESSION: NEGATIVE STUDY OF THE RIGHT HAND. NO RADIOGRAPHIC EVIDENCE OF ACUTE INJURY. TECHNICAL DOCUMENTATION: JOB ID: [id number] [employer]- All Rights Reserved
[2017-03-25 19:35] VITALS: BP 145/74
== END 2017-03-25 19:35 | disposition home or self-care (01) ==
LOC: ER 17:17
DX: S60.221A Contusion of right hand, initial encounter (principal); W22.01XA Walked into wall, initial encounter; Y92.009 Unspecified place in unspecified non-institutional (private) residence as the place of occurrence of the external cause; Z88.8 Allergy status to other drugs, medicaments and biological substances; Z88.6 Allergy status to analgesic agent; J45.909 Unspecified asthma, uncomplicated; E11.9 Type 2 diabetes mellitus without complications; R03.0 Elevated blood-pressure reading, without diagnosis of hypertension; F17.200 Nicotine dependence, unspecified, uncomplicated
CPT/HCPCS: 99283; 73130; A9270

== ENCOUNTER 2017-04-04 17:34 | Emergency (ER) | payer MEDICARE, MEDICAID ==
--- NOTE | 2017-04-04 18:38 | ER Document Report ---
ED Medical Screen (RME) - General Chief Complaint: Vomiting Stated Complaint: VOMITING Time Seen by Provider: 04/04/17 18:34 Mode of Arrival: Wheelchair Information source: Patient TRAVEL OUTSIDE OF THE [place] IN LAST 30 DAYS: No - HPI Patient complains to provider of: pelvic pain/?retained POC Onset: Other - Pt states she was seen here recently and had CT for kidney stones and was diagnosed with PID. She has had a recent miscarriage and feels she may have some retained POC. - Related Data Allergies/Adverse Reactions: bupropion HCl [From Wellbutrin] Allergy (Verified 03/24/17 00:02) VOMITING divalproex sodium [From Depakote] Allergy (Verified 03/24/17 00:02) VOMITING haloperidol [From Haldol] Allergy (Verified 03/24/17 00:02) Distonic Reaction olanzapine [From Zyprexa] Allergy (Verified 03/24/17 00:02) Rash topiramate [From Topamax] Allergy (Verified 03/24/17 00:02) Speech problems, drooling Past Medical History - Social History Family history: Reviewed & Not Pertinent Pulmonary Medical History: Reports: Hx Asthma Endocrine Medical History: Reports: Hx Diabetes Mellitus Type 2 Renal/ Medical History: Reports: Hx Kidney Stones, Hx Ovarian Cysts. Denies: Hx Peritoneal Dialysis Psychiatric Medical History: Reports: Hx Anxiety, Hx Bipolar Disorder, Hx Depression, Hx Personality Disorder, Hx Post Traumatic Stress Disorder Past Surgical History: Reports: Hx Section - 04/24/15, Hx Cholecystectomy, Hx Gynecologic Surgery - right ovary removed 09/03/13 - Immunizations Immunizations up to date: Yes Hx Diphtheria, Pertussis, Tetanus Vaccination: Yes - unknown History of Influenza Vaccine for 03/2017 - 08/2017 Season: Yes Physical Exam - Vital signs Vitals: Temp Pulse Resp BP Pulse Ox 98.3 F 86 16 129/78 H 98 04/04/17 17:42 04/04/17 17:42 04/04/17 17:42 04/04/17 17:42 04/04/17 17:42 Course - Vital Signs Vital signs: Temp Pulse Resp BP Pulse Ox 98.3 F 86 16 129/78 H 98 04/04/17 17:42 04/04/17 17:42 04/04/17 17:42 04/04/17 17:42 04/04/17 17:42
[2017-04-04 19:11] LABS: ABSOLUTE BASOPHILS # (AUTO) 0.1 10^3/uL (0.0-0.2); ABSOLUTE EOSINOPHILS # (AUTO) 0.3 10^3/uL (0.0-0.6); ABSOLUTE LYMPHOCYTES (AUTO) 5.3 10^3/uL (0.5-4.7); ABSOLUTE MONOCYTES (AUTO) 0.9 10^3/uL (0.1-1.4); ABSOLUTE NEUT (AUTO) 9.9 10^3/uL (1.7-8.2); BASOPHILS % (AUTO) 0.3 % (0-2); EOSINOPHILS % (AUTO) 1.5 % (0-6); HEMATOCRIT 41.6 % (36.0-47.0); HEMOGLOBIN 13.9 g/dL (12.0-15.5); HGB HCT DIFFERENCE 0.1; LYMPHOCYTES % (AUTO) 32.4 % (13-45); MEAN CORPUSCULAR HEMOGLOBIN 28.6 pg (27.0-33.4); MEAN CORPUSCULAR HGB CONC 33.4 g/dL (32.0-36.0); MEAN CORPUSCULAR VOLUME 86 fl (80-97); MONOCYTES % (AUTO) 5.4 % (3-13); RED BLOOD COUNT 4.86 10^6/uL (3.72-5.28); SEGMENTED NEUTROPHILS % (AUTO) 60.4 % (42-78); WHITE BLOOD COUNT 16.4 10^3/uL (4.0-10.5)
[2017-04-04 19:16] LABS: APPEARANCE,URINE CLOUDY; BILIRUBIN,URINE NEGATIVE (NEGATIVE); GLUCOSE, URINE NEGATIVE (NEGATIVE); KETONES,URINE NEGATIVE (NEGATIVE); LEUKOCYTE ESTERASE,URINE LARGE (NEGATIVE); NITRITE,URINE NEGATIVE (NEGATIVE); PROTEIN,URINE >=500 mg/dL (NEGATIVE); URINE SPECIFIC GRAVITY 1.014; UROBILINOGEN,URINE NEGATIVE mg/dL (<2.0)
[2017-04-04 19:26] LABS: ALANINE AMINOTRANSFERASE 47 U/L (9-52); ALBUMIN 4.8 g/dL (3.5-5.0); ALKALINE PHOSPHATASE 77 U/L (38-126); ANION GAP 17 (5-19); ASPARTATE AMINO TRANSFERASE 22 U/L (14-36); BILIRUBIN,DIRECT 0.3 mg/dL (0.0-0.4); BILIRUBIN,TOTAL 0.6 mg/dL (0.2-1.3); BLOOD UREA NITROGEN 8 mg/dL (7-20); CALCIUM 9.8 mg/dL (8.4-10.2); CARBON DIOXIDE 24 mmol/L (22-30); CHLORIDE 104 mmol/L (98-107); CREATININE RESULT 0.73 mg/dL (0.52-1.25); GLUCOSE 76 mg/dL (75-110); POTASSIUM 3.6 mmol/L (3.6-5.0); SODIUM 144.9 mmol/L (137-145)
--- NOTE | 2017-04-04 20:44 | RADIOLOGY REPORT (SQ) ---
EXAM DESCRIPTION: U/S NON-OB PELVIS LTD W/O DOP COMPLETED DATE/TIME: 04/04/2017 8:29 pm REASON FOR STUDY: pelvic pain/? retained POC COMPARISON: None. TECHNIQUE: Dynamic and static grayscale images acquired of the pelvis via transvaginal approach and recorded on PACS. Additional selected color Doppler and spectral images recorded. LIMITATIONS: Body wall acoustics. FINDINGS: UTERUS: Contour normal. No mass. ENDOMETRIAL STRIPE: No focal or generalized thickening. No masses. CERVIX: No nabothian cysts. RIGHT OVARY: Surgically absent. RIGHT OVARY DOPPLER: Surgically absent. LEFT OVARY: Ovary not visualized. LEFT OVARY DOPPLER: Ovary not visualized. FREE FLUID: None noted. OTHER: No other significant finding. MEASUREMENTS: UTERUS: 7.9 x 3.9 x 4.6 cm. ENDOMETRIAL STRIPE: 8 mm. RIGHT OVARY: Not applicable. LEFT OVARY: Not visualized. IMPRESSION: NORMAL UTERUS AND ENDOMETRIUM. STATUS POST RIGHT OOPHORECTOMY. LEFT OVARY NOT VISUALIZED. TECHNICAL DOCUMENTATION: JOB ID: [id number] [employer]- All Rights Reserved
[2017-04-04] MEDS ORDERED: ONDANSETRON 4 MG TAB.RAPDIS PO ONE (22:26)
[2017-04-04] MEDS ORDERED: AZITHROMYCIN 1 GM SUSP PACKET PO ONE (22:27)
[2017-04-04] MEDS ORDERED: CEFTRIAXONE INJ 1000 MG VIAL IM ONE (22:28)
[2017-04-04] MEDS ORDERED: LIDOCAINE 1% INJ-PF (10 MG/ML) 30 ML SDV INJ ONE (22:28)
--- NOTE | 2017-04-04 22:49 | ER Document Report ---
ED GI/ - General Chief Complaint: Vomiting Stated Complaint: VOMITING Time Seen by Provider: 04/04/17 18:34 Mode of Arrival: Wheelchair Notes: Patient is complaining of pain from kidney stones and cramping of her abdomen and pain with sex. She has had the kidney stone pain for many years, passed a couple of stones today, but the abdominal cramping is been going on for about 5 weeks since the patient had a miscarriage on February 10. She thinks that she has a pelvic infection because her symptoms have now worsened in recent days. She was seen here about 10 days ago and told she had a trichomonas infection and kidney stones. She saw a primary care provider 3 days ago who did another smear and told the patient it was still positive for trichomonas. However, that practitioner did not provide the patient with any additional treatment for the trichomonas. She did provide the patient with a prescription for Flomax. Patient says she is also been vomiting, twice today and also some diarrhea today. She is having frequent urinations, but no other symptoms of a UTI. Has had a fever up to 102. PMH: Cholecystectomy, , partial right oophorectomy for ovarian cyst Depression, anxiety, bipolar disorder, PTSD, TRAVEL OUTSIDE OF THE [place] IN LAST 30 DAYS: No - Related Data Allergies/Adverse Reactions: bupropion HCl [From Wellbutrin] Allergy (Verified 03/24/17 00:02) VOMITING divalproex sodium [From Depakote] Allergy (Verified 03/24/17 00:02) VOMITING haloperidol [From Haldol] Allergy (Verified 03/24/17 00:02) Distonic Reaction olanzapine [From Zyprexa] Allergy (Verified 03/24/17 00:02) Rash topiramate [From Topamax] Allergy (Verified 03/24/17 00:02) Speech problems, drooling Past Medical History - General Information source: Patient - Social History Smoking Status: Current Every Day Smoker Frequency of alcohol use: Rare Drug Abuse: Marijuana Family History: Reviewed & Not Pertinent, CAD, DM Patient has suicidal ideation: No Patient has homicidal ideation: No Pulmonary Medical History: Reports: Hx Asthma Endocrine Medical History: Reports: Hx Diabetes Mellitus Type 2 Renal/ Medical History: Reports: Hx Kidney Stones, Hx Ovarian Cysts Psychiatric Medical History: Reports: Hx Anxiety, Hx Bipolar Disorder, Hx Depression, Hx Personality Disorder, Hx Post Traumatic Stress Disorder Past Surgical History: Reports: Hx Section - 04/24/15, Hx Cholecystectomy, Hx Gynecologic Surgery - right ovary removed 09/03/13 - Immunizations Immunizations up to date: Yes Hx Diphtheria, Pertussis, Tetanus Vaccination: Yes - unknown Review of Systems - Review of Systems Notes: REVIEW OF SYSTEMS: CONSTITUTIONAL : Has had fever up to 102. EENT: Denies eye, ear, nose or mouth or throat pain or other symptoms. CARDIOVASCULAR: Denies chest pain. RESPIRATORY: Denies cough, chest congestion, or shortness of breath. GASTROINTESTINAL: See HPI. GENITOURINARY: Denies difficulty or painful urinating, blood in urine, but has urinary frequency. MUSCULOSKELETAL: Denies back or neck pain. Denies joint pain or swelling. SKIN: Denies rash or skin lesions. NEUROLOGICAL: Denies LOC or altered mental status. Denies headache. Denies sensory loss or motor deficits. ALL OTHER SYSTEMS REVIEWED AND NEGATIVE. Physical Exam - Vital signs Vitals: Temp Pulse Resp BP Pulse Ox 98.3 F 86 16 129/78 H 98 04/04/17 17:42 04/04/17 17:42 04/04/17 17:42 04/04/17 17:42 04/04/17 17:42 Interpretation: Normal - Notes Notes: PHYSICAL EXAMINATION: GENERAL: Well-appearing, in no acute distress. Moves about the room and on the stretcher and sitting and laying positions without any apparent significant pain or limitations. Vital signs are all normal. Afebrile. Not tachycardia. HEAD: Atraumatic, normocephalic. ENT: oropharynx clear without exudates. Moist mucous membranes. NECK: Normal range of motion, supple. LUNGS: Breath sounds clear and equal bilaterally. HEART: Regular rate and rhythm without murmurs. ABDOMEN: Soft, obese, mildly tender across the suprapubic region. Definitely no guarding or rebound. BACK: No tenderness throughout entire back. EXTREMITIES: Normal range of motion without pain. NEUROLOGICAL: Normal speech, normal gait. Normal sensory, motor, and reflex exams. Awake, alert, and oriented x3. PSYCH: Normal mood, normal affect. SKIN: Warm, dry, no rashes. Course - Re-evaluation Re-evalutation: 04/04/17 23:29 Patient's urine definitely looks like a UTI. Cultures have been ordered. Patient was concerned that she might have a pelvic infection secondary to retained products from her miscarriage in early February. However, her ultrasound does not show any evidence of retained products or suggestion of infection. Patient's white count is 16,000, but there is no shift in her differential and I am not sure that this has much clinical significance. Patient does not appear to be toxic. I do not think there is indications for her to be admitted for inpatient treatment. I have advised her that we are going to treat her for a UTI and also for the trichomonas infection and possible pelvic infection and see how she does over the next couple of days. She is advised to return if she runs fever or has worsening pains or vomiting and cannot keep down medications. - Vital Signs Vital signs: Temp Pulse Resp BP Pulse Ox 98.3 F 86 16 129/78 H 98 04/04/17 17:42 04/04/17 17:42 04/04/17 17:42 04/04/17 17:42 04/04/17 17:42 - Laboratory Result Diagrams: 04/04/17 17:50 04/04/17 17:50 Laboratory results interpreted by me: 04/04/17 04/04/17 17:50 17:50 WBC 16.4 H RDW 15.0 H Absolute Neutrophils 9.9 H Absolute Lymphocytes 5.3 H Urine Protein >=500 H Urine Blood LARGE H Ur Leukocyte Esterase LARGE H - Diagnostic Test Radiology reviewed: Image reviewed, Reports reviewed - Ultrasound of the pelvis shows no abnormality. Patient's right ovary is missing and her left one could not be visualized. Otherwise no significant findings. Discharge - Discharge Clinical Impression: Pelvic pain, UTI (urinary tract infection), Trichomonas infection Condition: Stable Disposition: HOME, SELF-CARE Additional Instructions: URINARY TRACT INFECTION: Your evaluation indicates that you have a urinary tract infection. This is due to germs growing in the bladder. This is a common problem. This infection usually responds quickly to antibiotics. Your antibiotic should be taken exactly as prescribed. Drink plenty of fluids -- three to four quarts a day. Occasionally, a bladder anesthetic will be prescribed to help stop the feeling of urgency until the antibiotic has a chance to clear the infection. This may cause your urine to be dark orange. Certain urine infections require a culture. If the doctor obtained a culture, the results will be back in two days. You should call to see if a change in treatment is needed. A repeat urinalysis after you finish treatment is often recommended. The physician will let you know if further testing is required. Call the doctor if you develop fever, chills, flank pain, inability to urinate, or blood in the urine. ANTIBIOTIC THERAPY: You have been given an antibiotic prescription. It's important that you take all the medication, unless instructed otherwise by your physician. Failure to complete the entire course can result in relapse of your condition. Common side effects of antibiotics include nausea, intestinal cramping, or diarrhea. Women may develop vaginal yeast infections, and babies can get yeast (thrush) in the mouth following the use of antibiotics. Contact your physician if you develop significant side effects from this medication. Allergy to this antibiotic can result in hives, wheezing, faintness, or itching. If symptoms of allergy occur, stop the medication and call the doctor. Rocephin You have been given an injection of an antibiotic called Rocephin ( ceftriaxone). Sometimes the injection must be combined with antibiotic pills. For some infections, such as an uncomplicated ear infection, Rocephin provides all the antibiotic that's needed. The antibiotic will be in your body for about two days. For serious infections, we usually repeat doses of Rocephin daily. Side effects are very unusual following a shot. Women may develop vaginal yeast infections, and babies can get yeast (thrush) in the mouth following the use of antibiotics. Contact your physician if you have symptoms with this medication. Allergy to this antibiotic can result in hives, wheezing, faintness, or itching. If symptoms of allergy occur, call the doctor at once. NITROFURANTOIN (MACRODANTIN, MACROBID): You have received a prescription for nitrofurantoin (Macrodantin). This antibiotic is used for urinary tract infections. Women who are or nursing should notify the physician before taking this medicine. If you have ever had a problem caused by this medication in the past, be sure the physician is aware of it. Common side effects of this medicine include nausea, vomiting, or decreased appetite. Notify your physician if these side effects become severe. Immediately stop this medicine and call the physician if you develop cough , shortness of breath, chest pain, weakness, jaundice (yellow color of the skin and whites of the eyes), or a skin rash. PELVIC PAIN: There are many causes of pain in the pelvic area. The cause could be the tubes, ovaries, uterus, intestines, appendix, pelvic muscles and connective tissue, or the urinary tract. The cause of your pelvic pain is not clear. However, it seems safe to treat you outside the hospital. If the pain sounds like a temporary problem, we sometimes wait to see if it goes away. Other patients may need additional tests, such as pelvic ultrasound or cultures. Conditions may change. Call us or come back for reexamination if any problems occur, such as: (1) Pain that becomes more severe, steady, or becomes concentrated in one specific area. Also, pain that is more severe with movement or coughing. (2) Vomiting that persists or becomes more frequent. (3) Blood in the vomitus, urine, or bowel movements. Blood in the stool may have a tarry or black appearance. (4) Shaking chills or fever greater than 100 degrees. (5) The abdomen becomes more distended or swollen. (6) Bowel movements cease. (7) Heavy vaginal bleeding. Trichomonas Infection Trichomoniasis is infection of the vagina or male genital tract with Trichomonas vaginalis. It can be asymptomatic or cause urethritis, vaginitis, or occasionally cystitis, epididymitis, or prostatitis. Diagnosis is by microscopic examination of vaginal or prostatic secretions or by urethral culture. Patients and sex partners are treated with metronidazole. T. vaginalis is a flagellated, sexually transmitted protozoan that more often infects women (about 20% of women of reproductive age) than men. Infection may be asymptomatic in either sex, but asymptomatic is the rule for men. In men, protozoa may persist for long periods in the tract without causing symptoms; thus, protozoa may be transmitted unwittingly to sex partners. Trichomoniasis may account for up to 5% of nongonococcal, nonchlamydial urethritis in men in some areas. Co-infection with gonorrhea and other sexually transmitted diseases (STDs) is common. In women, symptoms range from none to copious, yellow-green, frothy vaginal discharge with soreness of the vulva and perineum, dyspareunia, and dysuria. Asymptomatic infection may become symptomatic at any time as the vulva and perineum become inflamed and edema develops in the labia. The vaginal reyes and surface of the cervix may have punctate, red "strawberry" spots. Urethritis and possibly cystitis may also occur. Men are usually asymptomatic; however, sometimes urethritis results in a discharge that may be transient, frothy, or purulent or that causes dysuria and frequency, usually early in the morning. Often, urethritis is mild and causes only minimal urethral irritation and occasional moisture at the urethral meatus , under the foreskin, or both. Epididymitis and prostatitis are rare complications. Trichomoniasis is suspected in women with vaginitis, in men with urethritis , and in their sex partners. Suspicion is high if symptoms persist after patients have been evaluated and treated for other infections such as gonorrhea and chlamydial, mycoplasmal, and ureaplasmal infections. In women, diagnosis is based on clinical criteria and in-office testing. The saline wet mount is examined microscopically as soon as possible to detect trichomonads.In men, microscopy of urine is insensitive, although occasionally organisms are visible in a first-voided morning specimen or a centrifuged specimen. Cultures of urine and urethral swabs are more sensitive. As with diagnosis of any STD, patients with trichomoniasis should be tested to exclude other common STDs such as gonorrhea and chlamydial infection. Metronidazole or tinidazole 2 g po in a single dose cures up to 95% of women if sex partners are treated simultaneously. Effectiveness of single-dose regimens in men is not as clear, so treatment is typically with metronidazole or tinidazole 500 mg bid for 5 to 7 days. Sex partners should be screened and treated for trichomoniasis and other STDs. If poor adherence to follow-up is likely, treatment can be initiated in sex partners of patients with documented trichomoniasis without confirming the diagnosis in the partner. AZITHROMYCIN: Azithromycin (Zithromax) is a broad spectrum antibiotic in the same class as erythromycin. It can treat a variety of bacterial infections, but is most frequently used for respiratory infections. Azithromycin is extremely long-lasting. It accumulates in body tissues and continues to kill bacteria for many days. In order to improve absorption, Azithromycin should be taken at least one hour before or two hours after a meal. It does not have the same strong tendency to upset the stomach as erythromycin and is usually very well tolerated. Patients who have had a rash or other true allergic reactions to erythromycin should not take this medication. Call if you develop gastrointestinal distress, severe diarrhea, rash, hives, itching, or shortness of breath. METRONIDAZOLE: Metronidazole (Flagyl) has been prescribed. This medication is used to kill a type of bacteria called anaerobes, and protozoan parasites such as trichomonas and Giardia. Flagyl often causes a metallic taste in the mouth and mild nausea. Do not use alcohol in any form with Flagyl (including alcohol in medication elixirs). Flagyl interacts with alcohol to cause flushing, palpitations, headache, stomach cramps, and vomiting. Do not use Flagyl if you are taking Antabuse (disulfiram). Call the doctor at once if you develop rash, shortness of breath, itching, or lightheadedness. Antinausea Medication You have been given a medication to suppress nausea and vomiting. This type of medication can be given as a shot, pill, or suppository. It will usually last for many hours. Pills and shots usually last six to eight hours, suppositories last about 12 hours. For the typical illness, only one or two doses of the medication may be necessary. Mild lightheadedness may occur. This type of medicine can cause drowsiness. Do not drive or operate dangerous machinery while under its influence. Do not mix with alcohol. See your doctor at once if you have muscle spasms or tightness, or uncontrollable motions (particularly of the neck, mouth, or jaw). Persistent vomiting or severe lightheadedness should also be evaluated by the physician. FOLLOW-UP CARE: If you have been referred to a physician for follow-up care, call the physician s office for an appointment as you were instructed or within the next two days. If you experience worsening or a significant change in your symptoms, notify the physician immediately or return to the Emergency Department at any time for re-evaluation. Prescriptions: Metronidazole [Flagyl 500 mg Tablet] 500 mg PO BID #14 tablet Nitrofurantoin/Nitrofuran Mac [Macrobid 100 mg Capsule] 1 tab PO BID #20 capsule Ondansetron [Zofran Odt 4 mg Tablet] 1 - 2 tab PO Q4H PRN #15 tab.rapdis PRN Reason: For Nausea/Vomiting Referrals: DIMA TABARES MD [Primary Care Provider] - Follow up in 3-5 days
[2017-04-04] MEDS ORDERED: HYDROCODONE/ACETAMINOPHEN 5-325 MG 6 TAB/DSPK PO PRN (23:23)
[2017-04-04 23:58] VITALS: BP 120/71
== END 2017-04-04 23:48 | disposition home or self-care (01) ==
LOC: ER 17:34
DX: N39.0 Urinary tract infection, site not specified (principal); A59.9 Trichomoniasis, unspecified; R10.2 Pelvic and perineal pain; R11.10 Vomiting, unspecified; R19.7 Diarrhea, unspecified; R50.9 Fever, unspecified; E11.9 Type 2 diabetes mellitus without complications; J45.909 Unspecified asthma, uncomplicated; F17.200 Nicotine dependence, unspecified, uncomplicated; Z87.442 Personal history of urinary calculi; Z88.8 Allergy status to other drugs, medicaments and biological substances; Z90.721 Acquired absence of ovaries, unilateral; Z90.49 Acquired absence of other specified parts of digestive tract; Z87.42 Personal history of other diseases of the female genital tract
CPT/HCPCS: 99284; 96372; 36415; 87086; 85025; 81025; 87088; 80053; 81001; 87186; 76857; A9270 ×3; J3490; J0696; Q0144; S0119

== ENCOUNTER 2017-04-28 16:03 | Emergency (ER) | payer MEDICARE, MEDICAID ==
[2017-04-28 16:09] VITALS: BP 137/65
--- NOTE | 2017-04-28 17:00 | ER Document Report ---
ED Medical Screen (RME) - General Chief Complaint: Flank Pain Stated Complaint: BLADDER PAIN Time Seen by Provider: 04/28/17 16:58 Notes: Patient states she was recently in this hospital with an ESBL infection. She was receiving IV Zosyn. Patient left AMA from the hospital. She returns now stating that she does not feel any better. TRAVEL OUTSIDE OF THE [place] IN LAST 30 DAYS: No - Related Data Allergies/Adverse Reactions: bupropion HCl [From Wellbutrin] Allergy (Verified 04/10/17 08:34) VOMITING divalproex sodium [From Depakote] Allergy (Verified 04/10/17 08:34) VOMITING haloperidol [From Haldol] Allergy (Verified 04/10/17 08:34) Distonic Reaction olanzapine [From Zyprexa] Allergy (Verified 04/10/17 08:34) Rash topiramate [From Topamax] Allergy (Verified 04/10/17 08:34) Speech problems, drooling Past Medical History - Social History Family history: Reviewed & Not Pertinent Pulmonary Medical History: Reports: Hx Asthma Endocrine Medical History: Reports: Hx Diabetes Mellitus Type 2 Renal/ Medical History: Reports: Hx Kidney Stones, Hx Ovarian Cysts. Denies: Hx Peritoneal Dialysis Psychiatric Medical History: Reports: Hx Anxiety, Hx Bipolar Disorder, Hx Depression, Hx Personality Disorder, Hx Post Traumatic Stress Disorder Past Surgical History: Reports: Hx Section - 04/24/15, Hx Cholecystectomy, Hx Gynecologic Surgery - right ovary removed 09/03/13 - Immunizations Immunizations up to date: Yes Hx Diphtheria, Pertussis, Tetanus Vaccination: Yes - unknown History of Influenza Vaccine for 03/2017 - 08/2017 Season: Yes Influenza Administration Date for 03/2017 - 08/2017 Season: 03/12/17 Physical Exam - Vital signs Vitals: Temp Pulse Resp BP Pulse Ox 98.6 F 87 14 137/65 H 97 04/28/17 16:06 04/28/17 16:06 04/28/17 16:06 04/28/17 16:06 04/28/17 16:06 Course - Vital Signs Vital signs: Temp Pulse Resp BP Pulse Ox 98.6 F 87 14 137/65 H 97 04/28/17 16:06 04/28/17 16:06 04/28/17 16:06 04/28/17 16:06 04/28/17 16:06
[2017-04-28 17:42] LABS: ABSOLUTE EOSINOPHILS # (AUTO) 0.2 10^3/uL (0.0-0.6); ABSOLUTE LYMPHOCYTES (AUTO) 4.3 10^3/uL (0.5-4.7); ABSOLUTE MONOCYTES (AUTO) 0.5 10^3/uL (0.1-1.4); ABSOLUTE NEUT (AUTO) 7.5 10^3/uL (1.7-8.2); BASOPHILS % (AUTO) 0.3 % (0-2); EOSINOPHILS % (AUTO) 1.3 % (0-6); HEMATOCRIT 42.5 % (36.0-47.0); HGB HCT DIFFERENCE -0.5; LYMPHOCYTES % (AUTO) 34.5 % (13-45); MEAN CORPUSCULAR HEMOGLOBIN 28.1 pg (27.0-33.4); MEAN CORPUSCULAR VOLUME 85 fl (80-97); MONOCYTES % (AUTO) 4.1 % (3-13); RED BLOOD COUNT 4.99 10^6/uL (3.72-5.28); RED CELL DISTRIBUTION WIDTH 14.6 % (11.5-14.0); SEGMENTED NEUTROPHILS % (AUTO) 59.8 % (42-78); WHITE BLOOD COUNT 12.4 10^3/uL (4.0-10.5)
[2017-04-28 17:44] LABS: APPEARANCE,URINE SLIGHTLY-CLOUDY; BILIRUBIN,URINE NEGATIVE (NEGATIVE); GLUCOSE, URINE NEGATIVE (NEGATIVE); KETONES,URINE NEGATIVE (NEGATIVE); LEUKOCYTE ESTERASE,URINE MODERATE (NEGATIVE); NITRITE,URINE NEGATIVE (NEGATIVE); PROTEIN,URINE NEGATIVE (NEGATIVE); URINE SPECIFIC GRAVITY 1.012; UROBILINOGEN,URINE NEGATIVE mg/dL (<2.0)
[2017-04-28 18:11] LABS: ALANINE AMINOTRANSFERASE 51 U/L (9-52); ALBUMIN 4.8 g/dL (3.5-5.0); ALKALINE PHOSPHATASE 74 U/L (38-126); ANION GAP 17 (5-19); ASPARTATE AMINO TRANSFERASE 33 U/L (14-36); BILIRUBIN,DIRECT 0.4 mg/dL (0.0-0.4); BILIRUBIN,TOTAL 0.6 mg/dL (0.2-1.3); BLOOD UREA NITROGEN 10 mg/dL (7-20); CALCIUM 10.1 mg/dL (8.4-10.2); CARBON DIOXIDE 25 mmol/L (22-30); CHLORIDE 105 mmol/L (98-107); CREATININE RESULT 0.67 mg/dL (0.52-1.25); GLUCOSE 76 mg/dL (75-110); POTASSIUM 3.5 mmol/L (3.6-5.0); SODIUM 146.8 mmol/L (137-145); TOTAL PROTEIN 8.2 g/dL (6.3-8.2)
[2017-04-28] MEDS ORDERED: KETOROLAC TROMETHAMINE INJ/PF 30 MG/1 ML SDV IV ONE (19:04)
[2017-04-28] MEDS ORDERED: ERTAPENEM SODIUM INJ 1 GM VIAL IV ONE (19:04)
[2017-04-28] MEDS ORDERED: ONDANSETRON HCL INJ/PF 4 MG/2 ML SDV IV ONE (19:06)
[2017-04-28] MEDS ORDERED: NORMAL SALINE 1000 ML 1,000 ML IV ONE (19:06)
--- NOTE | 2017-04-28 19:37 | ER Document Report ---
Doctor's Note Notes: 04/28/17 19:37 I did not see her participate in the care of this patient. This patient apparently left AGAINST MEDICAL ADVICE prior to me being able to see the patient.
== END 2017-04-28 19:10 | disposition left against medical advice (07) ==
LOC: ER 16:03
DX: Z53.9 Procedure and treatment not carried out, unspecified reason (principal); R10.9 Unspecified abdominal pain
CPT/HCPCS: 36415; 80053; 81001; 81025; 85025; 99281

== ENCOUNTER 2017-05-02 15:57 | Emergency (ER) | payer MEDICARE, MEDICAID | END 2017-05-02 16:03 | disposition left against medical advice (07) | LOC: ER 15:57 | DX: Z53.9 Procedure and treatment not carried out, unspecified reason (principal); R10.9 Unspecified abdominal pain ==

== ENCOUNTER 2017-05-03 17:26 | Emergency (ER) | payer MEDICARE, MEDICAID ==
--- NOTE | 2017-05-03 19:25 | ER Document Report ---
ED Medical Screen (RME) - General Chief Complaint: Abdominal Pain Stated Complaint: ABDOMINAL PAIN Time Seen by Provider: 05/03/17 19:18 TRAVEL OUTSIDE OF THE [place] IN LAST 30 DAYS: No - HPI Notes: 05/03/17 19:23 Abdominal pain back pain with a history of ESBL UTIs. Patient also has a history of leaving AGAINST MEDICAL ADVICE prior to receiving treatment. Patient states last time she was admitted offered PICC line insertion and IV antibiotics however patient had a ride at this time. Patient states now she does have a ride and is requesting a PICC line to treat her ESBL. 05/03/17 19:24 - Related Data Allergies/Adverse Reactions: bupropion HCl [From Wellbutrin] Allergy (Verified 05/03/17 17:47) VOMITING divalproex sodium [From Depakote] Allergy (Verified 05/03/17 17:47) VOMITING haloperidol [From Haldol] Allergy (Verified 05/03/17 17:47) Distonic Reaction olanzapine [From Zyprexa] Allergy (Verified 05/03/17 17:47) Rash topiramate [From Topamax] Allergy (Verified 05/03/17 17:47) Speech problems, drooling Past Medical History - Social History Chew tobacco use (# tins/day): No Frequency of alcohol use: None Drug Abuse: Marijuana Family history: Reviewed & Not Pertinent Pulmonary Medical History: Reports: Hx Asthma Endocrine Medical History: Reports: Hx Diabetes Mellitus Type 2 Renal/ Medical History: Reports: Hx Kidney Stones, Hx Ovarian Cysts, Hx Peritoneal Dialysis Psychiatric Medical History: Reports: Hx Anxiety, Hx Bipolar Disorder, Hx Depression, Hx Personality Disorder, Hx Post Traumatic Stress Disorder Past Surgical History: Reports: Hx Section - 04/24/15, Hx Cholecystectomy, Hx Gynecologic Surgery - right ovary removed 09/03/13 - Immunizations Immunizations up to date: Yes Hx Diphtheria, Pertussis, Tetanus Vaccination: Yes - unknown History of Influenza Vaccine for 03/2017 - 08/2017 Season: Yes Influenza Administration Date for 03/2017 - 08/2017 Season: 03/12/17 Review of Systems - Review of Systems Gastrointestinal: Abdominal pain Genitourinary: Burning, Dysuria Physical Exam - Vital signs Vitals: Temp Pulse Resp BP Pulse Ox 98.7 F 101 H 20 114/53 L 96 05/03/17 17:40 05/03/17 17:40 05/03/17 17:40 05/03/17 17:40 05/03/17 17:40 Interpretation: Normal - General General appearance: Appears well, Alert - HEENT Head: Normocephalic, Atraumatic Eyes: Normal Pupils: PERRL - Neurological Neuro grossly intact: Yes Cognition: Normal Orientation: AAOx4 Hamzah Coma Scale Eye Opening: Spontaneous Hamzah Coma Scale Verbal: Oriented [place] Coma Scale Motor: Obeys Commands Hamzah Coma Scale Total: 15 Speech: Normal Motor strength normal: LUE, RUE, LLE, RLE Sensory: Normal - Psychological Associated symptoms: Normal affect, Normal mood - Skin Skin Temperature: Warm Skin Moisture: Dry Skin Color: Normal Course - Vital Signs Vital signs: Temp Pulse Resp BP Pulse Ox 98.7 F 101 H 20 114/53 L 96 05/03/17 17:40 05/03/17 17:40 05/03/17 17:40 05/03/17 17:40 05/03/17 17:40
[2017-05-03 20:01] LABS: ABSOLUTE EOSINOPHILS # (AUTO) 0.3 10^3/uL (0.0-0.6); ABSOLUTE LYMPHOCYTES (AUTO) 4.4 10^3/uL (0.5-4.7); ABSOLUTE MONOCYTES (AUTO) 0.6 10^3/uL (0.1-1.4); ABSOLUTE NEUT (AUTO) 7.9 10^3/uL (1.7-8.2); BASOPHILS % (AUTO) 0.2 % (0-2); EOSINOPHILS % (AUTO) 2.2 % (0-6); HEMATOCRIT 39.1 % (36.0-47.0); HGB HCT DIFFERENCE -0.1; LYMPHOCYTES % (AUTO) 33.1 % (13-45); MEAN CORPUSCULAR HEMOGLOBIN 28.5 pg (27.0-33.4); MEAN CORPUSCULAR HGB CONC 33.2 g/dL (32.0-36.0); MEAN CORPUSCULAR VOLUME 86 fl (80-97); MONOCYTES % (AUTO) 4.4 % (3-13); RED BLOOD COUNT 4.56 10^6/uL (3.72-5.28); RED CELL DISTRIBUTION WIDTH 14.6 % (11.5-14.0); SEGMENTED NEUTROPHILS % (AUTO) 60.1 % (42-78); WHITE BLOOD COUNT 13.2 10^3/uL (4.0-10.5)
[2017-05-03 20:16] LABS: ALANINE AMINOTRANSFERASE 28 U/L (9-52); ALBUMIN 4.4 g/dL (3.5-5.0); ALKALINE PHOSPHATASE 68 U/L (38-126); ANION GAP 16 (5-19); ASPARTATE AMINO TRANSFERASE 14 U/L (14-36); BILIRUBIN,DIRECT 0.2 mg/dL (0.0-0.4); BILIRUBIN,TOTAL 0.3 mg/dL (0.2-1.3); BLOOD UREA NITROGEN 14 mg/dL (7-20); CALCIUM 9.5 mg/dL (8.4-10.2); CARBON DIOXIDE 24 mmol/L (22-30); CHLORIDE 106 mmol/L (98-107); CREATININE RESULT 0.75 mg/dL (0.52-1.25); GLUCOSE 81 mg/dL (75-110); LIPASE 128.6 U/L (23-300); POTASSIUM 3.9 mmol/L (3.6-5.0); SODIUM 146.3 mmol/L (137-145); TOTAL PROTEIN 7.4 g/dL (6.3-8.2)
[2017-05-03 20:41] LABS: APPEARANCE,URINE SLIGHTLY-CLOUDY; BILIRUBIN,URINE NEGATIVE (NEGATIVE); GLUCOSE, URINE NEGATIVE (NEGATIVE); KETONES,URINE NEGATIVE (NEGATIVE); LEUKOCYTE ESTERASE,URINE LARGE (NEGATIVE); NITRITE,URINE NEGATIVE (NEGATIVE); PROTEIN,URINE 30 mg/dL (NEGATIVE); URINE SPECIFIC GRAVITY 1.014; UROBILINOGEN,URINE NEGATIVE mg/dL (<2.0)
[2017-05-03] MEDS ORDERED: PIPERACILLIN/TAZOBACTAM 3.375 GM VIAL IV ONE (20:44)
--- NOTE | 2017-05-03 22:26 | ER Document Report ---
ED General - General Chief Complaint: Abdominal Pain Stated Complaint: ABDOMINAL PAIN Time Seen by Provider: 05/03/17 19:18 Mode of Arrival: Ambulatory Information source: Patient, [facility] Records Notes: 21-year-old female history of ESBL UTI who was admitted but left AGAINST MEDICAL ADVICE and has not had appropriate follow-up who was supposed to have a PICC line and antibiotics outpatient presents with continued complaints. Patient notes that she is still has urinary symptoms had low-grade fever yesterday. Patient denies any flank pain but admits to generalized abdominal pain Patient presents requesting a PICC line placed so she can get antibiotics now TRAVEL OUTSIDE OF THE [place] IN LAST 30 DAYS: No - HPI Onset: Other - 3 week duration since her previous admission and symptoms Onset/Duration: Persistent Quality of pain: Achy Severity: Mild Pain Level: 1 Associated symptoms: Fever, Other Exacerbated by: Denies Relieved by: Denies Similar symptoms previously: Yes Recently seen / treated by doctor: Yes - Related Data Allergies/Adverse Reactions: bupropion HCl [From Wellbutrin] Allergy (Verified 05/03/17 17:47) VOMITING divalproex sodium [From Depakote] Allergy (Verified 05/03/17 17:47) VOMITING haloperidol [From Haldol] Allergy (Verified 05/03/17 17:47) Distonic Reaction olanzapine [From Zyprexa] Allergy (Verified 05/03/17 17:47) Rash topiramate [From Topamax] Allergy (Verified 05/03/17 17:47) Speech problems, drooling Past Medical History - Social History Smoking Status: Current Every Day Smoker Cigarette use (# per day): Yes Chew tobacco use (# tins/day): No Smoking Education Provided: No Frequency of alcohol use: None Drug Abuse: Marijuana Family History: CAD, DM Patient has suicidal ideation: No Patient has homicidal ideation: No Pulmonary Medical History: Reports: Hx Asthma Endocrine Medical History: Reports: Hx Diabetes Mellitus Type 2 Renal/ Medical History: Reports: Hx Kidney Stones, Hx Ovarian Cysts. Denies: Hx Peritoneal Dialysis Psychiatric Medical History: Reports: Hx Anxiety, Hx Bipolar Disorder, Hx Depression, Hx Personality Disorder, Hx Post Traumatic Stress Disorder Past Surgical History: Reports: Hx Section - 04/24/15, Hx Cholecystectomy, Hx Gynecologic Surgery - right ovary removed 09/03/13 - Immunizations Immunizations up to date: Yes Hx Diphtheria, Pertussis, Tetanus Vaccination: Yes - unknown Review of Systems - Review of Systems Notes: REVIEW OF SYSTEMS: CONSTITUTIONAL : Admits to fever EENT: Denies eye, ear, throat, or mouth pain or symptoms. Denies nasal or sinus congestion or discharge. Denies throat, tongue, or mouth swelling or difficulty swallowing. CARDIOVASCULAR: Denies chest pain. Denies palpitations or racing or irregular heart beat. Denies ankle edema. RESPIRATORY: Denies cough, cold, or chest congestion. Denies shortness of breath, difficulty breathing, or wheezing. GASTROINTESTINAL: Admits to abdominal pain GENITOURINARY: Denies difficulty urinating, painful urination, burning, frequency, blood in urine, or discharge. FEMALE GENITOURINARY: Denies vaginal bleeding, heavy or abnormal periods, irregular periods. Denies vaginal discharge or odor. MUSCULOSKELETAL: Denies back or neck pain or stiffness. Denies joint pain or swelling. SKIN: Denies rash, lesions or sores. HEMATOLOGIC : Denies easy bruising or bleeding. LYMPHATIC: Denies swollen, enlarged glands. NEUROLOGICAL: Denies confusion or altered mental status. Denies passing out or loss of consciousness. Denies dizziness or lightheadedness. Denies headache. Denies weakness or paralysis or loss of use of either side. Denies problems with gait or speech. Denies sensory loss, numbness, or tingling. Denies seizures. PSYCHIATRIC: Denies anxiety or stress. Denies depression, suicidal ideation, or homicidal ideation. ALL OTHER SYSTEMS REVIEWED AND NEGATIVE. PHYSICAL EXAMINATION: GENERAL: Well-appearing, well-nourished and in no acute distress. HEAD: Atraumatic, normocephalic. EYES: Pupils equal round and reactive to light, extraocular movements intact, conjunctiva are normal. ENT: Nares patent, oropharynx clear without exudates. Moist mucous membranes. NECK: Normal range of motion, supple without lymphadenopathy LUNGS: Breath sounds clear to auscultation bilaterally and equal. No wheezes rales or rhonchi. HEART: Regular rate and rhythm without murmurs ABDOMEN: Soft, nontender, nondistended abdomen. No guarding, no rebound. No masses appreciated. Female : deferred Musculoskeletal: Normal range of motion, no pitting or edema. No cyanosis. NEUROLOGICAL: Cranial nerves grossly intact. Normal speech, normal gait. Normal sensory, motor exams PSYCH: Normal mood, normal affect. SKIN: Warm, Dry, normal turgor, no rashes or lesions noted. Dictation was performed using [employer] voice recognition software Physical Exam - Vital signs Vitals: Temp Pulse Resp BP Pulse Ox 98.7 F 101 H 20 114/53 L 96 05/03/17 17:40 05/03/17 17:40 05/03/17 17:40 05/03/17 17:40 05/03/17 17:40 Course - Re-evaluation Re-evalutation: 05/04/17 03:57 On examination patient's presentation is quite benign, she is in no distress, I did look at her previous workup and have noted that 2 cultures have been positive for resistant E. coli, it appears hospitalists were using Zosyn to treat her symptoms, therefore I did give her a dose of Zosyn here, I have left IV in place and have requested that the patient follow-up as nursing visits for continued IV antibiotics as a PICC line cannot be placed at this time on Friday at nighttime I believe that the patient does not require admission since this is been ongoing for 3 weeks and she is not ill-appearing and otherwise looks well. She does have mild white count elevation but is afebrile upon arrival Patient's very happy with this plan will be discharged to follow-up in the morning After performing a Medical Screening Examination, I estimate there is LOW risk for ACUTE APPENDICITIS, BOWEL OBSTRUCTION, ACUTE CHOLECYSTITIS, PERFORATED DIVERTICULITIS, INCARCERATED HERNIA, PANCREATITIS, PELVIC INFLAMMATORY DISEASE, PERFORATED ULCER, ECTOPIC , or TUBO-OVARIAN ABSCESS, thus I consider the discharge disposition reasonable. Also, there is no evidence or peritonitis , sepsis, or toxicity. I have reevaluated this patient multiple times and no significant life threatening changes are noted. The patient and I have discussed the diagnosis and risks, and we agree with discharging home with close follow-up with the understanding that symptoms and presentations can change. We also discussed returning to the Emergency Department immediately if new or worsening symptoms occur. We have discussed the symptoms which are most concerning (e.g., bloody stool, fever, changing or worsening pain, vomiting) that necessitate immediate return. - Vital Signs Vital signs: Temp Pulse Resp BP Pulse Ox 98.2 F 82 16 118/62 98 05/03/17 22:58 05/03/17 22:58 05/03/17 22:58 05/03/17 22:58 05/03/17 22:58 - Laboratory Result Diagrams: 05/03/17 19:46 05/03/17 19:46 Laboratory results interpreted by me: 05/03/17 05/03/17 05/03/17 19:46 19:46 20:15 WBC 13.2 H RDW 14.6 H Sodium 146.3 H Urine Protein 30 H Ur Leukocyte Esterase LARGE H Discharge - Discharge Clinical Impression: UTI (urinary tract infection) Qualifiers: Urinary tract infection type: acute cystitis Hematuria presence: without hematuria Qualified Code(s): N30.00 - Acute cystitis without hematuria Condition: Stable Disposition: HOME, SELF-CARE Instructions: Urinary Tract Infection ([facility]) Additional Instructions: Please return as a nurse visit for further IV antibiotics Forms: Return to Work Referrals: DIMA TABARES MD [Primary Care Provider] - Follow up as needed
[2017-05-03 22:59] VITALS: BP 118/62
[2017-05-04] MEDS ORDERED: PIPERACILLIN/TAZOBACTAM 3.375 GM VIAL IV PRN (03:00)
[2017-05-04] MEDS ORDERED: PIPERACILLIN SODIUM/TAZOBACTAM 3.375 GM in NORMAL SALINE 100 ML IV SCH (03:00)
== END 2017-05-03 22:58 | disposition home or self-care (01) ==
LOC: ER 17:26
DX: N30.00 Acute cystitis without hematuria (principal); R10.9 Unspecified abdominal pain; R50.9 Fever, unspecified; F17.210 Nicotine dependence, cigarettes, uncomplicated; E11.9 Type 2 diabetes mellitus without complications; Z87.442 Personal history of urinary calculi; Z90.49 Acquired absence of other specified parts of digestive tract
CPT/HCPCS: 99284; 96365; 36415; 87040; 87086; 83690; 85025; 87088; 80053; 81001; 87186; J2543

== ENCOUNTER → 2017-05-06 | Day surgery (SDC) | payer MEDICARE, MEDICAID ==
[~2017-05-06] MED LIST: NORMAL SALINE 10 ML SDV (AFTER EACH USE) IV PRN; NORMAL SALINE 10 ML SDV (SCHEDULED) IV SCH; PIPERACILLIN SODIUM/TAZOBACTAM 3.375 GM in NORMAL SALINE 100 ML IV ONE
--- NOTE | 2017-05-06 15:31 | RADIOLOGY REPORT (SQ) ---
EXAM DESCRIPTION: PICC INSERTION; FLUORO/CV PLACEMENT; U/S GUIDE FOR VASCULAR ACCESS COMPLETED DATE/TIME: 05/06/2017 3:22 pm REASON FOR STUDY: IV ANTIBIOTICS; IV ABX COMPARISON: AP chest 12/04/2016 FLUOROSCOPY TIME: 24 seconds 1 C-arm and 1 ultrasound image saved to PACS. TECHNIQUE: Fluoroscopic and ultrasound guided PICC placement. LIMITATIONS: None. PROCEDURE: After written consent and assessment were obtained, the patient was brought into the fluo roscopy room and place supine on the table. Ultrasound was used on the patient's left arm for PICC a ccess. The left arm was prepped and draped in a sterile fashion along with the ultrasound probe. The entry site was anesthetized with 4 mL of 1% lidocaine. A 21 gauge 7 cm needle was advanced through th e skin and into the basilic vein under live ultrasound guidance. An ultrasound image was saved to [facility] confirming access site. A .018 guide wire was then inserted through the needle and into the venou s system. The needle was the removed and an 11 blade scalpel was used to make a 1cm skin incision. A 5 fr peel-away sheath was advanced over the wire and into the venous system. A measurement was then made using the existing wire and live fluoroscopic guidance. The wire was then removed and the trimme d. The PICC was advanced through the peel-away sheath and into the venous system. The peel-away sheat h was removed and the catheter was adhered to the patients arm with a stat lock. The catheter was the n aspirated and flushed and a sterile bandage was placed over the access site. A fluoroscopic spot i mage was saved to PACS confirming the catheter tip within the superior vena cava. IMPRESSION: SUCCESSFUL PLACEMENT OF A 5 FR DUAL LUMEN 35 CM PICC IN THE LEFT BASILIC VEIN. COMMENT: Patient medication list reviewed: Yes- Quality ID# [id number]:Eligible professional attests to doc umenting in the medical record they obtained, updated, or reviewed the patient's current medications. . Quality ID 145: Final reports for procedures using fluoroscopy that document radiation exposure trang eddy, or exposure time and number of fluorographic images (if radiation exposure indices are not avail able) Quality ID #76: The patient was prepped and draped using maximum sterile barrier technique including cap, mask, sterile gown, sterile gloves, a large sterile sheet, hand hygiene, and 2% Chlorhexidine fo r cutaneous antisepsis. When ultrasound is used, sterile ultrasound techniques are followed requiring sterile gel and sterile probes. TECHNICAL DOCUMENTATION: JOB ID: [id number] [employer]- All Rights Reserved
== END ==
LOC: RAD 13:32
PROVIDERS: ATTEND Emergency Medicine
PROC: 05HC33Z Insertion of Infusion Device into Left Basilic Vein, Percutaneous Approach (ICD-10-PCS; principal; 2017-05-06)
DX: Z45.2 Encounter for adjustment and management of vascular access device (principal)
CPT/HCPCS: 96365; 36569; 77001; 76937; J1642; J2543

== ENCOUNTER 2017-05-07 11:28 | Emergency (ER) | payer MEDICARE, MEDICAID ==
[2017-05-07 11:36] VITALS: BP 137/59
[2017-05-07] MEDS ORDERED: AMOXICILLIN TR/POT CLAVULANATE 500-125 MG TAB PO ONE (11:48)
--- NOTE | 2017-05-07 11:54 | ER Document Report ---
ED General - General Chief Complaint: Urinary Retention Stated Complaint: URINARY SYMPTOMS Time Seen by Provider: 05/07/17 11:47 Mode of Arrival: Ambulatory Information source: Patient Notes: Patient was recently seen here and diagnosed with urinary tract infection. She was seen on 05 May. Patient's last urine culture was 10 April. It showed an ESBL E. coli infection. Therefore patient was arranged to have Zosyn by IV every 6 hours here at the hospital as an outpatient. A subsequent culture has now shown that the patient has E. coli sensitive to Augmentin. She states she is feeling better. Her vital signs are normal. We are going to check the patient's labs and start her on oral antibiotics if labs are reasonable. Patient states she has to be at work and would like to just be called with her labs which I told her it is reasonable. She occasionally does have some flank pain but has a history of stones. This pain is intermittent. Nothing makes it better or worse. It does radiate into her right lower abdomen. It is sharp and moderate to severe. TRAVEL OUTSIDE OF THE [place] IN LAST 30 DAYS: No - Related Data Allergies/Adverse Reactions: bupropion HCl [From Wellbutrin] Allergy (Verified 05/03/17 17:47) VOMITING divalproex sodium [From Depakote] Allergy (Verified 05/03/17 17:47) VOMITING haloperidol [From Haldol] Allergy (Verified 05/03/17 17:47) Distonic Reaction olanzapine [From Zyprexa] Allergy (Verified 05/03/17 17:47) Rash topiramate [From Topamax] Allergy (Verified 05/03/17 17:47) Speech problems, drooling Past Medical History - Social History Smoking Status: Unknown if Ever Smoked Frequency of alcohol use: None Drug Abuse: None Family History: CAD, DM Pulmonary Medical History: Reports: Hx Asthma Endocrine Medical History: Reports: Hx Diabetes Mellitus Type 2 Renal/ Medical History: Reports: Hx Kidney Stones, Hx Ovarian Cysts. Denies: Hx Peritoneal Dialysis Psychiatric Medical History: Reports: Hx Anxiety, Hx Bipolar Disorder, Hx Depression, Hx Personality Disorder, Hx Post Traumatic Stress Disorder Past Surgical History: Reports: Hx Section - 04/24/15, Hx Cholecystectomy, Hx Gynecologic Surgery - right ovary removed 09/03/13 - Immunizations Immunizations up to date: Yes Hx Diphtheria, Pertussis, Tetanus Vaccination: Yes - unknown Review of Systems - Review of Systems Constitutional: denies: Chills, Fever Cardiovascular: denies: Chest pain, Palpitations Respiratory: denies: Cough, Short of breath Physical Exam - Vital signs Vitals: Temp Pulse Resp BP Pulse Ox 98.3 F 81 16 137/59 H 100 05/07/17 11:33 05/07/17 11:33 05/07/17 11:33 05/07/17 11:33 05/07/17 11:33 Interpretation: Hypertensive - General General appearance: Appears well, Alert In distress: None - HEENT Head: Normocephalic, Atraumatic Eyes: Normal Pupils: PERRL - Respiratory Respiratory status: No respiratory distress Chest status: Nontender Breath sounds: Normal Chest palpation: Normal - Cardiovascular Rhythm: Regular Heart sounds: Normal auscultation Murmur: No - Abdominal Inspection: Normal Distension: No distension Bowel sounds: Normal Tenderness: Nontender Organomegaly: No organomegaly - Back Back: Normal, Nontender - Extremities General upper extremity: Normal inspection, Nontender, Normal color, Normal ROM , Normal temperature General lower extremity: Normal inspection, Nontender, Normal color, Normal ROM , Normal temperature, Normal weight bearing. No: Annie's sign - Neurological Neuro grossly intact: Yes Cognition: Normal Orientation: AAOx4 Childress Coma Scale Eye Opening: Spontaneous Hamzah Coma Scale Verbal: Oriented Childress Coma Scale Motor: Obeys Commands Hamzah Coma Scale Total: 15 Speech: Normal Motor strength normal: LUE, RUE, LLE, RLE Sensory: Normal - Psychological Associated symptoms: Normal affect, Normal mood - Skin Skin Temperature: Warm Skin Moisture: Dry Skin Color: Normal Course - Vital Signs Vital signs: Temp Pulse Resp BP Pulse Ox 98.3 F 81 16 137/59 H 100 05/07/17 11:33 05/07/17 11:33 05/07/17 11:33 05/07/17 11:33 05/07/17 11:33 Discharge - Discharge Clinical Impression: Urinary tract infection Qualifiers: Urinary tract infection type: site unspecified Hematuria presence: with hematuria Qualified Code(s): N39.0 - Urinary tract infection, site not specified ; R31.9 - Hematuria, unspecified; R31.9 - Hematuria, unspecified Condition: Stable Disposition: HOME, SELF-CARE Instructions: Urinary Tract Infection ([facility]) Prescriptions: Amox Tr/Potassium Clavulanate [Augmentin 875-125 Tablet] 1 tab PO BID 10 Days tablet Amoxicillin/Potassium Clav [Amox-Clav 250-125 mg Tablet] 1 each PO BID #14 tablet Forms: Elevated Blood Pressure Referrals: EMMA CASTELAN MD [COMMUNITY BASED STAFF] - Follow up as needed
[2017-05-07 12:17] LABS: ABSOLUTE EOSINOPHILS # (AUTO) 0.2 10^3/uL (0.0-0.6); ABSOLUTE LYMPHOCYTES (AUTO) 3.2 10^3/uL (0.5-4.7); ABSOLUTE MONOCYTES (AUTO) 0.5 10^3/uL (0.1-1.4); BASOPHILS % (AUTO) 0.3 % (0-2); EOSINOPHILS % (AUTO) 1.2 % (0-6); HEMATOCRIT 39.4 % (36.0-47.0); HEMOGLOBIN 13.1 g/dL (12.0-15.5); HGB HCT DIFFERENCE -0.1; LYMPHOCYTES % (AUTO) 24.7 % (13-45); MEAN CORPUSCULAR HEMOGLOBIN 28.5 pg (27.0-33.4); MEAN CORPUSCULAR HGB CONC 33.3 g/dL (32.0-36.0); MEAN CORPUSCULAR VOLUME 86 fl (80-97); MONOCYTES % (AUTO) 3.9 % (3-13); RED BLOOD COUNT 4.61 10^6/uL (3.72-5.28); RED CELL DISTRIBUTION WIDTH 14.4 % (11.5-14.0); SEGMENTED NEUTROPHILS % (AUTO) 69.9 % (42-78); WHITE BLOOD COUNT 12.9 10^3/uL (4.0-10.5)
[2017-05-07 12:32] LABS: APPEARANCE,URINE CLEAR; BILIRUBIN,URINE NEGATIVE (NEGATIVE); GLUCOSE, URINE NEGATIVE (NEGATIVE); KETONES,URINE NEGATIVE (NEGATIVE); LEUKOCYTE ESTERASE,URINE TRACE (NEGATIVE); NITRITE,URINE NEGATIVE (NEGATIVE); PROTEIN,URINE NEGATIVE (NEGATIVE); URINE SPECIFIC GRAVITY 1.013; UROBILINOGEN,URINE NEGATIVE mg/dL (<2.0)
[2017-05-07 12:36] LABS: ALANINE AMINOTRANSFERASE 46 U/L (9-52); ALBUMIN 4.3 g/dL (3.5-5.0); ALKALINE PHOSPHATASE 74 U/L (38-126); ANION GAP 13 (5-19); ASPARTATE AMINO TRANSFERASE 36 U/L (14-36); BILIRUBIN,DIRECT 0.4 mg/dL (0.0-0.4); BILIRUBIN,TOTAL 0.5 mg/dL (0.2-1.3); BLOOD UREA NITROGEN 11 mg/dL (7-20); CALCIUM 9.6 mg/dL (8.4-10.2); CARBON DIOXIDE 24 mmol/L (22-30); CHLORIDE 107 mmol/L (98-107); CREATININE RESULT 0.64 mg/dL (0.52-1.25); GLUCOSE 84 mg/dL (75-110); POTASSIUM 4.2 mmol/L (3.6-5.0); SODIUM 144.1 mmol/L (137-145); TOTAL PROTEIN 7.6 g/dL (6.3-8.2)
== END 2017-05-07 12:05 | disposition home or self-care (01) ==
LOC: ER 11:28
DX: N39.0 Urinary tract infection, site not specified (principal); B96.29 Other Escherichia coli [E. coli] as the cause of diseases classified elsewhere; R31.9 Hematuria, unspecified; J45.909 Unspecified asthma, uncomplicated; E11.9 Type 2 diabetes mellitus without complications; Z87.442 Personal history of urinary calculi; Z88.8 Allergy status to other drugs, medicaments and biological substances
CPT/HCPCS: 99284; 36415; 87086; 85025; 87088; 80053; 81001; 87186; A9270

== ENCOUNTER 2017-05-15 10:59 | Emergency (ER) | payer MEDICARE, MEDICAID ==
--- NOTE | 2017-05-15 11:08 | ER Document Report ---
HPI - HPI Patient complains to provider of: abscess on back, needs another urine culture Onset: Other - Several days Onset/Duration: Gradual Pain Level: 4 Context: 21-year-old female has an abscess on her mid back for several days which is actually improving. She also needs another urine culture. She has a history of E. coli ESBL and was treated with Augmentin that was sensitive to. She has no abdominal pain nausea or dysuria anymore. They placed a PICC line expecting her to need IV antibiotics for this urinary tract infection but when they found that it was sensitive to Augmentin they gave her the oral antibiotics. She has a home health nurse that checked it is doing fine but she needs a repeat urine culture which I will order. No fever or chills. No flank pain. Associated Symptoms: None Exacerbated by: Denies Relieved by: Denies Similar symptoms previously: No Recently seen / treated by doctor: No - ROS ROS below otherwise negative: Yes Systems Reviewed and Negative: Yes All other systems reviewed and negative - REPRODUCTIVE Reproductive: DENIES: : Past Medical History - General Information source: Patient - Social History Smoking Status: Never Smoker Frequency of alcohol use: None Drug Abuse: None Family History: CAD, DM Patient has homicidal ideation: No Pulmonary Medical History: Reports: Hx Asthma Endocrine Medical History: Reports: Hx Diabetes Mellitus Type 2 Renal/ Medical History: Reports: Hx Kidney Stones, Hx Ovarian Cysts. Denies: Hx Peritoneal Dialysis Psychiatric Medical History: Reports: Hx Anxiety, Hx Bipolar Disorder, Hx Depression, Hx Personality Disorder, Hx Post Traumatic Stress Disorder Past Surgical History: Reports: Hx Section - 04/24/15, Hx Cholecystectomy, Hx Gynecologic Surgery - right ovary removed 09/03/13 - Immunizations Immunizations up to date: Yes Hx Diphtheria, Pertussis, Tetanus Vaccination: Yes - unknown Vertical Provider Document - CONSTITUTIONAL Agree With Documented VS: Yes Exam Limitations: No Limitations - INFECTION CONTROL TRAVEL OUTSIDE OF THE [place] IN LAST 30 DAYS: No - HEENT HEENT: Normocephalic - NECK Neck: Supple - RESPIRATORY Respiratory: Breath Sounds Normal, No Respiratory Distress O2 Sat by Pulse Oximetry: 99 - CARDIOVASCULAR Cardiovascular: Regular Rate, Regular Rhythm - MUSCULOSKELETAL/EXTREMETIES Musculoskeletal/Extremeties: MAEW, FROM Notes: PICC line in left arm, no inflammation. - NEURO Level of Consciousness: Awake, Alert - DERM Integumentary: Warm, Dry, Abscess - 1 cm indurated follicular abscess with central crusting that she said drained and it is better, central mid thoracic back Course - Vital Signs Vital signs: Temp Pulse Resp BP Pulse Ox 98.7 F 89 16 135/72 H 99 05/15/17 11:03 05/15/17 11:03 05/15/17 11:03 05/15/17 11:03 05/15/17 11:03 Discharge - Discharge Clinical Impression: Small back abscess, History of ESBL E. coli infection Condition: Good Disposition: HOME, SELF-CARE Instructions: Abscess ([facility]), Bactroban Ointment ([facility]) Additional Instructions: bactroban ointment small abount three times per day with large bandaid over it urine culture is pending call jonathon FIELD on friday afternoon for the urine culture results to see if the bacteria is gone [phone]
[2017-05-15] MEDS ORDERED: MUPIROCIN 2% OINTMENT 22 GM TP ONE (11:34)
[2017-05-15 12:21] VITALS: BP 123/67
== END 2017-05-15 12:21 | disposition home or self-care (01) ==
LOC: ER 10:59
DX: L02.212 Cutaneous abscess of back [any part, except buttock and flank] (principal); Z87.440 Personal history of urinary (tract) infections; J45.909 Unspecified asthma, uncomplicated; E11.9 Type 2 diabetes mellitus without complications
CPT/HCPCS: 99282; 87086; 87070; 87205; 87075; 87077; 87088; 87186; A9270; J3490

== ENCOUNTER 2017-05-25 10:17 | Emergency (ER) | payer MEDICARE, MEDICAID ==
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
[2017-05-25] MEDS ORDERED: ACETAMINOPHEN 325 MG TABLET PO ONE (11:14)
--- NOTE | 2017-05-25 11:16 | ER Document Report ---
ED General - General Chief Complaint: Arm Pain Stated Complaint: ARM PAIN Time Seen by Provider: 05/25/17 10:25 Notes: Patient is a 21-year-old female who presents emergency department complaining of chest wall pain. Patient states that she was goofing around with a friend yesterday and hit on the left side of her chest and since then was having some discomfort. States that her chest pain is only notable with left arm movement and she describes it as an aching pain. She denies any shortness of breath, substernal pain. Past medical history is significant for a history of ESBL E. coli urine infection that she has been noncompliant with outpatient management for. Patient states that she did fill her prescription for Macrobid yesterday and started taking that as directed. She is due to follow-up with her primary care provider Dr. Tabares regarding this. Otherwise she denies any redness, swelling, tenderness at the site, any fevers or chills, lethargy. States that her abdominal pain in pyuria has resolved. TRAVEL OUTSIDE OF THE [place] IN LAST 30 DAYS: No - Related Data Allergies/Adverse Reactions: bupropion HCl [From Wellbutrin] Allergy (Verified 05/25/17 10:19) VOMITING divalproex sodium [From Depakote] Allergy (Verified 05/25/17 10:19) VOMITING haloperidol [From Haldol] Allergy (Verified 05/25/17 10:19) Distonic Reaction olanzapine [From Zyprexa] Allergy (Verified 05/25/17 10:19) Rash topiramate [From Topamax] Allergy (Verified 05/25/17 10:19) Speech problems, drooling Past Medical History - Social History Smoking Status: Current Every Day Smoker Frequency of alcohol use: Rare Drug Abuse: None Family History: CAD, DM Patient has suicidal ideation: No Patient has homicidal ideation: No Pulmonary Medical History: Reports: Hx Asthma Endocrine Medical History: Reports: Hx Diabetes Mellitus Type 2 Renal/ Medical History: Reports: Hx Kidney Stones, Hx Ovarian Cysts. Denies: Hx Peritoneal Dialysis Psychiatric Medical History: Reports: Hx Anxiety, Hx Bipolar Disorder, Hx Depression, Hx Personality Disorder, Hx Post Traumatic Stress Disorder Past Surgical History: Reports: Hx Section - 04/24/15, Hx Cholecystectomy, Hx Gynecologic Surgery - right ovary removed 09/03/13 - Immunizations Immunizations up to date: Yes Hx Diphtheria, Pertussis, Tetanus Vaccination: Yes - unknown Review of Systems - Review of Systems Constitutional: No symptoms reported Cardiovascular: See HPI Respiratory: No symptoms reported Gastrointestinal: No symptoms reported Genitourinary: No symptoms reported -: Yes All other systems reviewed and negative Physical Exam - Vital signs Vitals: Temp Pulse Resp BP Pulse Ox 99.6 F 107 H 16 120/68 98 05/25/17 10:24 05/25/17 10:24 05/25/17 10:24 05/25/17 10:24 05/25/17 10:24 - Notes Notes: PHYSICAL EXAM GENERAL: Alert, interacts well. NECK: Full range of motion. Supple. Trachea midline. LUNGS: Clear to auscultation bilaterally, no wheezes, rales, or rhonchi. No respiratory distress. HEART: Chest tender to palpation with pain reproducible. No palpable deformities, crepitus. Regular rate and rhythm. No murmurs, gallops, or rubs. EXTREMITIES: Moves all 4 extremities spontaneously. No edema, radial and dorsalis pedis pulses 2/4 bilaterally. No cyanosis. NEUROLOGICAL: Alert and oriented x4. Normal speech. PSYCH: Normal affect, normal mood. SKIN: Warm, dry, normal turgor. No rashes or lesions noted. PICC line in place within the left antecubital fossa. No evidence of cellulitis or infiltration at this time. Course - Re-evaluation Re-evalutation: 05/25/17 11:51 Patient is a 21-year-old female is hemodynamically stable, no acute distress and afebrile. Presentation is consistent with chest wall trauma given history and physical exam. Chest x-ray benign without any evidence of trauma. Low clinical suspicion for ACS given clinical history, exam, EKG without ST elevations or depressions, and negative initial troponin. HEART score less than or equal to 3. PE also seems unlikely given clinical history, absence of tachycardia or dyspnea. Well's score of 0. CXR without evidence of pneumothorax or pneumonia. No widened mediastinum. Aortic dissection also seems unlikely given history, symmetric pulses, CXR, and vitals. At this time will discharge with return precautions and follow-up recommendations. PICC line still in place with dressing intact. Given that patient has been noncompliant with outpatient antibiotics but otherwise hemodynamically stable and afebrile discharged home with continued PICC line in place and to follow-up with Dr. Tabares. Patient agrees with plan. Repeat culture was sent today as well. Patient stable for discharge. - Vital Signs Vital signs: Temp Pulse Resp BP Pulse Ox 99.1 F 99 18 119/70 99 05/25/17 12:18 05/25/17 12:18 05/25/17 12:18 05/25/17 12:18 05/25/17 12:18 - Laboratory Laboratory results interpreted by me: 05/25/17 10:35 Urine Nitrite POSITIVE H Ur Leukocyte Esterase SMALL H - Diagnostic Test Radiology reviewed: Image reviewed, Reports reviewed Discharge - Discharge Clinical Impression: Chest wall pain Condition: Good Disposition: HOME, SELF-CARE Instructions: Anti-Inflammatory Medication ([facility]), Chest Wall Pain ([facility]) Additional Instructions: Please continue to take your Macrobid as instructed. Continue to keep your PICC line dressing intact and clean. Follow up with [facility] and Dr. Tabares as scheduled Referrals: DIMA TABARES MD [Primary Care Provider] - Follow up as needed
--- NOTE | 2017-05-25 11:31 | RADIOLOGY REPORT (SQ) ---
EXAM DESCRIPTION: CHEST SINGLE VIEW COMPLETED DATE/TIME: 05/25/2017 10:55 am REASON FOR STUDY: PICC line placement, causing CP COMPARISON: Two-view chest 05/12/2015 EXAM PARAMETERS: NUMBER OF VIEWS: One view. TECHNIQUE: Single frontal radiographic view of the chest acquired. RADIATION DOSE: NA LIMITATIONS: None. FINDINGS: LUNGS AND PLEURA: No opacities, masses or pneumothorax. No pleural effusion. MEDIASTINUM AND HILAR STRUCTURES: No masses. Contour normal. HEART AND VASCULAR STRUCTURES: Heart normal in size. Normal vasculature. BONES: No acute findings. HARDWARE: Left PICC line tip superior vena cava. Clips right upper quadrant post cholecystectomy. OTHER: No other significant finding. IMPRESSION: No acute infiltrates PICC line tip in the superior vena cava. TECHNICAL DOCUMENTATION: JOB ID: [id number] [email or web address]- All Rights Reserved
[2017-05-25 11:34] LABS: APPEARANCE,URINE CLOUDY; BILIRUBIN,URINE NEGATIVE (NEGATIVE); GLUCOSE, URINE NEGATIVE (NEGATIVE); KETONES,URINE NEGATIVE (NEGATIVE); LEUKOCYTE ESTERASE,URINE SMALL (NEGATIVE); NITRITE,URINE POSITIVE (NEGATIVE); PROTEIN,URINE NEGATIVE (NEGATIVE); URINE SPECIFIC GRAVITY 1.017; UROBILINOGEN,URINE NEGATIVE mg/dL (<2.0)
[2017-05-25 12:20] VITALS: BP 119/70
== END 2017-05-25 12:20 | disposition home or self-care (01) ==
LOC: ER 10:17
DX: R07.89 Other chest pain (principal); F17.200 Nicotine dependence, unspecified, uncomplicated
CPT/HCPCS: 99284; 87086; 87088; 81001; 87186; 71010; A9270

== ENCOUNTER 2017-06-17 14:51 | Emergency (ER) | payer MEDICARE, MEDICAID ==
[2017-06-17 14:57] VITALS: BP 119/67
--- NOTE | 2017-06-17 16:18 | ER Document Report ---
ED Medical Screen (RME) - General Chief Complaint: Arm Problem Stated Complaint: ARM PAIN Time Seen by Provider: 06/17/17 16:02 Notes: This 22-year-old female patient comes emergency room complaining of pain at the insertion of her PICC line in her left medial upper arm. She also complains of yellow drainage at site. She states it was cleaned and redressed yesterday. It looks like it could have been cleaned better. She was seen here on 05/25/2017 complaining of pain related to her PICC line. The PICC line had not been using several weeks at that time. She was reportedly on Augmentin orally at that time for her E. coli ESBL. The chart notes that she had been noncompliant. A urine obtained on that visit also grew E. coli ESBL, but it was indeterminate sensitivity to Augmentin. She states she was prescribed Macrobid on that visit , but reviewing the chart from that visit there is no evidence that it was prescribed at that time. She also claims she has not seen anyone since that visit, but did report she saw a doctor he in the emergency room. I described Dr. Morrison and she identified him, but I cannot find anything in the chart to suggest that he was involved in her care. While I am dictating this RME note, the nurse came to tell me the patient got a phone call from her release of information specialist and has to leave this moment. She will be offered the AMA form to sign. I have greeted and performed a rapid initial assessment of this patient. A comprehensive ED assessment and evaluation of the patient, analysis of test results and completion of the medical decision making process will be conducted by additional ED providers. TRAVEL OUTSIDE OF THE [place] IN LAST 30 DAYS: No - Related Data Allergies/Adverse Reactions: bupropion HCl [From Wellbutrin] Allergy (Verified 06/17/17 15:41) VOMITING divalproex sodium [From Depakote] Allergy (Verified 06/17/17 15:41) VOMITING haloperidol [From Haldol] Allergy (Verified 06/17/17 15:41) Distonic Reaction olanzapine [From Zyprexa] Allergy (Verified 06/17/17 15:41) Rash topiramate [From Topamax] Allergy (Verified 06/17/17 15:41) Speech problems, drooling Past Medical History - Social History Chew tobacco use (# tins/day): No Frequency of alcohol use: None Drug Abuse: None Family history: Reviewed & Not Pertinent Pulmonary Medical History: Reports: Hx Asthma Endocrine Medical History: Reports: Hx Diabetes Mellitus Type 2 Renal/ Medical History: Reports: Hx Kidney Stones, Hx Ovarian Cysts. Denies: Hx Peritoneal Dialysis Psychiatric Medical History: Reports: Hx Anxiety, Hx Bipolar Disorder, Hx Depression, Hx Personality Disorder, Hx Post Traumatic Stress Disorder Past Surgical History: Reports: Hx Section - 04/24/15, Hx Cholecystectomy, Hx Gynecologic Surgery - right ovary removed 09/03/13 - Immunizations Immunizations up to date: Yes Hx Diphtheria, Pertussis, Tetanus Vaccination: Yes - unknown History of Influenza Vaccine for 03/2017 - 08/2017 Season: Yes Influenza Administration Date for 03/2017 - 08/2017 Season: 03/12/17 Physical Exam - Vital signs Vitals: Temp Pulse Resp BP Pulse Ox 99.1 F 91 14 119/67 97 06/17/17 14:56 06/17/17 14:56 06/17/17 14:56 06/17/17 14:56 06/17/17 14:56 Course - Vital Signs Vital signs: Temp Pulse Resp BP Pulse Ox 99.1 F 91 14 119/67 97 06/17/17 14:56 06/17/17 14:56 06/17/17 14:56 06/17/17 14:56 06/17/17 14:56
== END 2017-06-17 16:25 | disposition left against medical advice (07) ==
LOC: ER 14:51
DX: Z53.9 Procedure and treatment not carried out, unspecified reason (principal); M79.602 Pain in left arm
CPT/HCPCS: 99281

== ENCOUNTER 2017-06-27 10:02 | Emergency (ER) | payer MEDICARE, MEDICAID ==
--- NOTE | 2017-06-27 10:36 | ER Document Report ---
ED General - General Chief Complaint: Vaginal Bleeding Stated Complaint: VAGINAL BLEEDING Time Seen by Provider: 06/27/17 10:33 Mode of Arrival: Ambulatory Information source: Patient Notes: 22-year-old female presents with complaints of a 2 day duration of vaginal bleeding and cramping. Patient notes that she is 1 week early for her. And is concerned she may be . Patient has had periods consistently and is not sure when this may have occurred She denies any urinary complaints she denies any nausea vomiting or diarrhea TRAVEL OUTSIDE OF THE [place] IN LAST 30 DAYS: No - HPI Onset: Other - 3 day duration Onset/Duration: Intermittent Quality of pain: Cramping Severity: Mild Pain Level: 1 Associated symptoms: Other Exacerbated by: Denies Relieved by: Denies Similar symptoms previously: No Recently seen / treated by doctor: Yes - Related Data Allergies/Adverse Reactions: bupropion HCl [From Wellbutrin] Allergy (Verified 06/27/17 10:36) VOMITING divalproex sodium [From Depakote] Allergy (Verified 06/27/17 10:36) VOMITING haloperidol [From Haldol] Allergy (Verified 06/27/17 10:36) Distonic Reaction olanzapine [From Zyprexa] Allergy (Verified 06/27/17 10:36) Rash topiramate [From Topamax] Allergy (Verified 06/27/17 10:36) Speech problems, drooling Past Medical History - Social History Smoking Status: Current Every Day Smoker Cigarette use (# per day): Yes Chew tobacco use (# tins/day): No Smoking Education Provided: No Family History: CAD, DM Pulmonary Medical History: Reports: Hx Asthma Endocrine Medical History: Reports: Hx Diabetes Mellitus Type 2 Renal/ Medical History: Reports: Hx Kidney Stones, Hx Ovarian Cysts. Denies: Hx Peritoneal Dialysis Psychiatric Medical History: Reports: Hx Anxiety, Hx Bipolar Disorder, Hx Depression, Hx Personality Disorder, Hx Post Traumatic Stress Disorder Past Surgical History: Reports: Hx Section - 04/24/15, Hx Cholecystectomy, Hx Gynecologic Surgery - right ovary removed 09/03/13 - Immunizations Immunizations up to date: Yes Hx Diphtheria, Pertussis, Tetanus Vaccination: Yes - unknown Review of Systems - Review of Systems Notes: REVIEW OF SYSTEMS: CONSTITUTIONAL : Denies fever, chills, or sweats. Denies recent illness. EENT: Denies eye, ear, throat, or mouth pain or symptoms. Denies nasal or sinus congestion or discharge. Denies throat, tongue, or mouth swelling or difficulty swallowing. CARDIOVASCULAR: Denies chest pain. Denies palpitations or racing or irregular heart beat. Denies ankle edema. RESPIRATORY: Denies cough, cold, or chest congestion. Denies shortness of breath, difficulty breathing, or wheezing. GASTROINTESTINAL: Denies abdominal pain or distention. Denies nausea, vomiting , or diarrhea. Denies blood in vomitus, stools, or per rectum. Denies black, tarry stools. Denies constipation. GENITOURINARY: Denies difficulty urinating, painful urination, burning, frequency, blood in urine, or discharge. FEMALE GENITOURINARY: Admits to vaginal bleeding. MUSCULOSKELETAL: Denies back or neck pain or stiffness. Denies joint pain or swelling. SKIN: Denies rash, lesions or sores. HEMATOLOGIC : Denies easy bruising or bleeding. LYMPHATIC: Denies swollen, enlarged glands. NEUROLOGICAL: Denies confusion or altered mental status. Denies passing out or loss of consciousness. Denies dizziness or lightheadedness. Denies headache. Denies weakness or paralysis or loss of use of either side. Denies problems with gait or speech. Denies sensory loss, numbness, or tingling. Denies seizures. PSYCHIATRIC: Denies anxiety or stress. Denies depression, suicidal ideation, or homicidal ideation. ALL OTHER SYSTEMS REVIEWED AND NEGATIVE. PHYSICAL EXAMINATION: GENERAL: Well-appearing, well-nourished and in no acute distress. HEAD: Atraumatic, normocephalic. EYES: Pupils equal round and reactive to light, extraocular movements intact, conjunctiva are normal. ENT: Nares patent, oropharynx clear without exudates. Moist mucous membranes. NECK: Normal range of motion, supple without lymphadenopathy LUNGS: Breath sounds clear to auscultation bilaterally and equal. No wheezes rales or rhonchi. HEART: Regular rate and rhythm without murmurs ABDOMEN: Soft, nontender, nondistended abdomen. No guarding, no rebound. No masses appreciated. Female : deferred Musculoskeletal: Normal range of motion, no pitting or edema. No cyanosis. NEUROLOGICAL: Cranial nerves grossly intact. Normal speech, normal gait. Normal sensory, motor exams PSYCH: Normal mood, normal affect. SKIN: Warm, Dry, normal turgor, no rashes or lesions noted. Dictation was performed using [employer] voice recognition software Physical Exam - Vital signs Vitals: Temp Pulse Resp BP Pulse Ox 98.4 F 74 16 132/71 H 98 06/27/17 10:21 06/27/17 10:21 06/27/17 10:21 06/27/17 10:21 06/27/17 10:21 Course - Re-evaluation Re-evalutation: 06/27/17 10:35 Patient is a very well known to me presents with complaints of vaginal bleeding , we will rule out related bleeding vs abnormal vag bleeding 06/27/17 11:55 Patient's is negative, this appears to be more dysfunctional uterine bleeding. She is otherwise stable for discharge After performing a Medical Screening Examination, I estimate there is LOW risk for ACUTE APPENDICITIS, BOWEL OBSTRUCTION, ACUTE CHOLECYSTITIS, PERFORATED DIVERTICULITIS, INCARCERATED HERNIA, PANCREATITIS, PELVIC INFLAMMATORY DISEASE, PERFORATED ULCER, ECTOPIC , or TUBO-OVARIAN ABSCESS, thus I consider the discharge disposition reasonable. Also, there is no evidence or peritonitis , sepsis, or toxicity. I have reevaluated this patient multiple times and no significant life threatening changes are noted. The patient and I have discussed the diagnosis and risks, and we agree with discharging home with close follow-up with the understanding that symptoms and presentations can change. We also discussed returning to the Emergency Department immediately if new or worsening symptoms occur. We have discussed the symptoms which are most concerning (e.g., bloody stool, fever, changing or worsening pain, vomiting) that necessitate immediate return. - Vital Signs Vital signs: Temp Pulse Resp BP Pulse Ox 98.4 F 74 16 132/71 H 98 06/27/17 10:21 06/27/17 10:21 06/27/17 10:21 06/27/17 10:21 06/27/17 10:21 - Laboratory Result Diagrams: 06/27/17 11:06/27/17 11:09 Laboratory results interpreted by me: 06/27/17 06/27/17 06/27/17 11:09 11:09 11:09 RDW 14.9 H Chloride 108 H Urine Protein 30 H Urine Blood LARGE H Ur Leukocyte Esterase TRACE H Urine Ascorbic Acid 20 H Discharge - Discharge Clinical Impression: Dysfunctional uterine bleeding Condition: Stable Disposition: HOME, SELF-CARE Instructions: [facility] Dysfunctional Uterine Bleeding ([facility]) Additional Instructions: Follow up with your physician tomorrow for further care or return to the ED IMMEDIATELY if symptoms worsen or new concerns occur. If you cannot afford to follow up with your primary care physician a list of low cost clinics have been provided at the end of your discharge papers as well.
[2017-06-27 11:27] LABS: ABSOLUTE EOSINOPHILS # (AUTO) 0.1 10^3/uL (0.0-0.6); ABSOLUTE LYMPHOCYTES (AUTO) 3.1 10^3/uL (0.5-4.7); ABSOLUTE MONOCYTES (AUTO) 0.3 10^3/uL (0.1-1.4); ABSOLUTE NEUT (AUTO) 4.5 10^3/uL (1.7-8.2); BASOPHILS % (AUTO) 0.3 % (0-2); EOSINOPHILS % (AUTO) 1.5 % (0-6); HEMATOCRIT 41.1 % (36.0-47.0); HEMOGLOBIN 13.4 g/dL (12.0-15.5); LYMPHOCYTES % (AUTO) 38.1 % (13-45); MEAN CORPUSCULAR HEMOGLOBIN 27.5 pg (27.0-33.4); MEAN CORPUSCULAR HGB CONC 32.5 g/dL (32.0-36.0); MEAN CORPUSCULAR VOLUME 85 fl (80-97); PLATELET COUNT 251 10^3/uL (150-450); RED BLOOD COUNT 4.86 10^6/uL (3.72-5.28); RED CELL DISTRIBUTION WIDTH 14.9 % (11.5-14.0); SEGMENTED NEUTROPHILS % (AUTO) 56.1 % (42-78); TOTAL CELLS COUNTED % (AUTO) 100 %; WHITE BLOOD COUNT 8.1 10^3/uL (4.0-10.5)
[2017-06-27 11:36] LABS: APPEARANCE,URINE CLOUDY; BILIRUBIN,URINE NEGATIVE (NEGATIVE); GLUCOSE, URINE NEGATIVE (NEGATIVE); KETONES,URINE NEGATIVE (NEGATIVE); LEUKOCYTE ESTERASE,URINE TRACE (NEGATIVE); NITRITE,URINE NEGATIVE (NEGATIVE); PROTEIN,URINE 30 mg/dL (NEGATIVE); URINE SPECIFIC GRAVITY 1.015; UROBILINOGEN,URINE NEGATIVE mg/dL (<2.0)
[2017-06-27 11:37] LABS: COLOR,URINE RED
[2017-06-27 11:47] LABS: ALANINE AMINOTRANSFERASE 42 U/L (9-52); ALBUMIN 4.3 g/dL (3.5-5.0); ALKALINE PHOSPHATASE 68 U/L (38-126); ANION GAP 9 (5-19); ASPARTATE AMINO TRANSFERASE 25 U/L (14-36); BILIRUBIN,DIRECT 0.2 mg/dL (0.0-0.4); BILIRUBIN,TOTAL 0.4 mg/dL (0.2-1.3); BLOOD UREA NITROGEN 9 mg/dL (7-20); CARBON DIOXIDE 26 mmol/L (22-30); CHLORIDE 108 mmol/L (98-107); GLUCOSE 101 mg/dL (75-110); SODIUM 142.7 mmol/L (137-145); TOTAL PROTEIN 7.4 g/dL (6.3-8.2)
[2017-06-27 12:09] VITALS: BP 121/66
== END 2017-06-27 12:10 | disposition home or self-care (01) ==
LOC: ER 10:02
DX: N93.8 Other specified abnormal uterine and vaginal bleeding (principal); R25.2 Cramp and spasm; F17.210 Nicotine dependence, cigarettes, uncomplicated; J45.909 Unspecified asthma, uncomplicated; E11.9 Type 2 diabetes mellitus without complications; Z32.02 Encounter for pregnancy test, result negative; Z90.721 Acquired absence of ovaries, unilateral; Z88.8 Allergy status to other drugs, medicaments and biological substances
CPT/HCPCS: 36415; 80053; 81001; 84703; 85025; 87086; 87088; 87186; 99284

== ENCOUNTER 2017-06-29 12:19 | Emergency (ER) | payer MEDICARE, MEDICAID ==
[2017-06-29 12:26] VITALS: BP 130/79
== END 2017-06-29 12:48 | disposition left against medical advice (07) ==
LOC: ER 12:19
DX: Z53.21 Procedure and treatment not carried out due to patient leaving prior to being seen by health care provider (principal)

== ENCOUNTER → 2018-01-01 | Outpatient (CLI) | payer MEDICARE, MEDICAID | LOC: LAB 12:10 | PROVIDERS: ATTEND Nurse Practitioner Acute Care | DX: R10.9 Unspecified abdominal pain (principal) | CPT/HCPCS: 36415; 84703 ==

== ENCOUNTER 2018-01-26 15:23 | Emergency (ER) | payer MEDICARE, MEDICAID ==
--- NOTE | 2018-01-26 16:39 | ER Document Report ---
ED GI/ - General Chief Complaint: Nausea Stated Complaint: TEST Time Seen by Provider: 01/26/18 16:26 Mode of Arrival: Ambulatory Information source: Patient Notes: 22-year-old female presented ED for complaint of nausea and being late on her period. She states she took a home test last night and it was positive. She is alert and oriented respirations regular and unlabored speaks in full sentences walks with a even steady gait. She denies any pain at this time. TRAVEL OUTSIDE OF THE [place] IN LAST 30 DAYS: No - HPI Patient complains to provider of: Vomiting. No: Abdominal pain Onset: Yesterday - Complains of nausea yesterday has vomited once today. She states she is 5 days late on her cycle. Quality of pain: No pain Severity in ED: None Pain Level: Denies Vaginal bleeding (Compared to normal period): None Associated symptoms: Nausea Exacerbated by: Denies Relieved by: Denies Similar symptoms previously: Yes Recently seen / treated by doctor: No - Related Data Allergies/Adverse Reactions: bupropion HCl [From Wellbutrin] Allergy (Verified 01/26/18 15:24) VOMITING divalproex sodium [From Depakote] Allergy (Verified 01/26/18 15:24) VOMITING haloperidol [From Haldol] Allergy (Verified 01/26/18 15:24) Distonic Reaction olanzapine [From Zyprexa] Allergy (Verified 01/26/18 15:24) Rash topiramate [From Topamax] Allergy (Verified 01/26/18 15:24) Speech problems, drooling Past Medical History - General Information source: Patient - Social History Smoking Status: Current Every Day Smoker Cigarette use (# per day): Yes - 4-5 cigarettes a day Chew tobacco use (# tins/day): No Smoking Education Provided: Yes - 4 minutes Frequency of alcohol use: Rare Drug Abuse: Marijuana Occupation: None Lives with: Spouse/Significant other Family History: CAD, DM Patient has suicidal ideation: No Patient has homicidal ideation: No - Past Medical History Cardiac Medical History: Reports: None Pulmonary Medical History: Reports: Hx Asthma EENT Medical History: Reports: None Neurological Medical History: Reports: None Endocrine Medical History: Reports: Hx Diabetes Mellitus Type 2 Renal/ Medical History: Reports: Hx Kidney Stones, Hx Ovarian Cysts Malignancy Medical History: Reports: None GI Medical History: Reports: None Musculoskeletal Medical History: Reports None Skin Medical History: Reports None Psychiatric Medical History: Reports: Hx Anxiety, Hx Bipolar Disorder, Hx Depression, Hx Personality Disorder, Hx Post Traumatic Stress Disorder Traumatic Medical History: Reports: None Infectious Medical History: Reports: None Past Surgical History: Reports: Hx Section - 04/24/15, Hx Cholecystectomy, Hx Gynecologic Surgery - right ovary removed 09/03/13 - Immunizations Immunizations up to date: Yes Hx Diphtheria, Pertussis, Tetanus Vaccination: Yes - unknown Review of Systems - Review of Systems Constitutional: No symptoms reported EENT: No symptoms reported Cardiovascular: No symptoms reported Respiratory: No symptoms reported Gastrointestinal: Nausea, Vomiting Genitourinary: No symptoms reported Female Genitourinary: No symptoms reported Musculoskeletal: No symptoms reported Skin: No symptoms reported Hematologic/Lymphatic: No symptoms reported Neurological/Psychological: No symptoms reported -: Yes All other systems reviewed and negative Physical Exam - Vital signs Vitals: Temp Pulse Resp BP Pulse Ox 99.3 F 96 16 123/63 99 01/26/18 15:43 01/26/18 15:43 01/26/18 15:43 01/26/18 15:43 01/26/18 15:43 Interpretation: Normal - General General appearance: Appears well, Alert - HEENT Head: Normocephalic, Atraumatic Eyes: Normal Pupils: PERRL - Respiratory Respiratory status: No respiratory distress Chest status: Nontender Breath sounds: Normal Chest palpation: Normal - Cardiovascular Rhythm: Regular Heart sounds: Normal auscultation Murmur: No - Abdominal Inspection: Normal Distension: No distension Bowel sounds: Normal Tenderness: Nontender Organomegaly: No organomegaly - Back Back: Normal, Nontender - Extremities General upper extremity: Normal inspection, Nontender, Normal color, Normal ROM , Normal temperature General lower extremity: Normal inspection, Nontender, Normal color, Normal ROM , Normal temperature, Normal weight bearing. No: Annie's sign - Neurological Neuro grossly intact: Yes Cognition: Normal Orientation: AAOx4 [place] Coma Scale Eye Opening: Spontaneous [place] Coma Scale Verbal: Oriented [place] Coma Scale Motor: Obeys Commands [place] Coma Scale Total: 15 Speech: Normal Motor strength normal: LUE, RUE, LLE, RLE Sensory: Normal - Psychological Associated symptoms: Normal affect, Normal mood - Skin Skin Temperature: Warm Skin Moisture: Dry Skin Color: Normal Course - Re-evaluation Re-evalutation: 01/27/18 02:[address] Bright [employer]SULT[employer] before treating patient for her bacterial vaginosis as she is listening . Dr. Bright stated that she give her Flagyl 250 mg 3 times daily for 7 days. This is what she was prescribed and she was instructed to follow-up with her [employer] CONSULTANT. - Vital Signs Vital signs: Temp Pulse Resp BP Pulse Ox 98.4 F 84 16 121/62 98 01/26/18 18:34 01/26/18 18:34 01/26/18 18:34 01/26/18 18:34 01/26/18 18:34 - Laboratory Laboratory results interpreted by me: 01/26/18 01/26/18 15:30 16:32 Beta HCG, Quant 345.53 H Ur Leukocyte Esterase TRACE H Discharge - Discharge Clinical Impression: Bacterial vaginosis Qualifiers: Weeks of gestation: less than 8 weeks Qualified Code(s): Z3A.01 - Less than 8 weeks gestation of Condition: Stable Disposition: HOME, SELF-CARE Additional Instructions: You are . care is best started as early in as possible. If you're unsure about continuing this , you should discuss this with your physician or with plating engineer at [facility]. You should take only medications approved by your physician. Acetaminophen can safely be taken for minor pains. As a rule, medication for chronic conditions such as asthma or seizures can safely be continued. You should discuss with the physician every medicine you take. Any regular exercise program can be continued. Talk to your physician, however, before engaging in competitive or demanding sports. Alcohol, smoking, and "street drugs" are dangerous to your baby. Cocaine is especially dangerous. Don't use any illicit drugs! VAGINOSIS, BACTERIAL: Your exam shows you have bacterial vaginosis. This condition is due to an overgrowth of bacteria in the vagina. Symptoms may include vaginal itching or pain, a smelly discharge, and sometimes burning with urination. Normally this is not transmitted by sexual contact. Vaginosis can be treated with oral or topical antibiotics. Metronidazole ( Flagyl) pills are usually effective. Topical vaginal creams include Cleocin and Metro-Gel. You should avoid sexual contact until your symptoms are all better. Call the doctor if you develop pelvic pain, fever, or problems with urination, or if you don't improve as expected. CEPHALOSPORINS: An antibiotic of the cephalosporin class has been prescribed. This type of antibiotic covers a wide variety of infections, including those of the skin, lungs, middle ear, and urinary tract. This antibiotic is somewhat similar to the penicillin family. In rare cases , a person who is allergic to penicillin will also be allergic to this medication. If you have had a severe allergic reaction to penicillin, and have not taken this antibiotic since that time, notify your doctor. Antibiotics which cover many germs ("broad spectrum" antibiotics) are more likely to cause diarrhea or "yeast" infections. Women prone to vaginal yeast problems may suffer an attack after taking this antibiotic. In infants, oral thrush (white spots "stuck" on the cheek) or yeast diaper rash may result. See your doctor if these problems occur. Call the doctor at once if you develop hives, itching, shortness of breath , or lightheadedness. AZITHROMYCIN: Azithromycin (Zithromax) is a broad spectrum antibiotic in the same class as erythromycin. It can treat a variety of bacterial infections, but is most frequently used for respiratory infections. Azithromycin is extremely long-lasting. It accumulates in body tissues and continues to kill bacteria for many days. In order to improve absorption, Azithromycin should be taken at least one hour before or two hours after a meal. It does not have the same strong tendency to upset the stomach as erythromycin and is usually very well tolerated. Patients who have had a rash or other true allergic reactions to erythromycin should not take this medication. Call if you develop gastrointestinal distress, severe diarrhea, rash, hives, itching, or shortness of breath. METRONIDAZOLE: Metronidazole (Flagyl) has been prescribed. This medication is used to kill a type of bacteria called anaerobes, and protozoan parasites such as trichomonas and Giardia. Flagyl often causes a metallic taste in the mouth and mild nausea. Do not use alcohol in any form with Flagyl (including alcohol in medication elixirs). Flagyl interacts with alcohol to cause flushing, palpitations, headache, stomach cramps, and vomiting. Do not use Flagyl if you are taking Antabuse (disulfiram). Call the doctor at once if you develop rash, shortness of breath, itching, or lightheadedness. FOLLOW-UP CARE: If you have been referred to a physician for follow-up care, call the physician s office for an appointment as you were instructed or within the next two days. If you experience worsening or a significant change in your symptoms, notify the physician immediately or return to the Emergency Department at any time for re-evaluation. Prescriptions: Metronidazole [Flagyl 250 mg Tablet] 250 mg PO Q8 #21 tablet Forms: Smoking Cessation Education Referrals: MARIO JOHNSTON NP [Primary Care Provider] - Follow up as needed
[2018-01-26 16:41] LABS: APPEARANCE,URINE CLEAR; BILIRUBIN,URINE NEGATIVE (NEGATIVE); COLOR,URINE YELLOW; GLUCOSE, URINE NEGATIVE (NEGATIVE); KETONES,URINE NEGATIVE (NEGATIVE); LEUKOCYTE ESTERASE,URINE TRACE (NEGATIVE); NITRITE,URINE NEGATIVE (NEGATIVE); PROTEIN,URINE NEGATIVE (NEGATIVE); URINE SPECIFIC GRAVITY 1.013; UROBILINOGEN,URINE NEGATIVE mg/dL (<2.0)
[2018-01-26] MEDS ORDERED: LIDOCAINE 1% INJ-PF (10 MG/ML) 30 ML SDV INJ ONE (17:06)
[2018-01-26] MEDS ORDERED: AZITHROMYCIN 250 MG TABLET PO ONE (17:06)
[2018-01-26] MEDS ORDERED: CEFTRIAXONE INJ 250 MG VIAL IM ONE (17:06)
[2018-01-26 17:21] LABS: BACTERIA (WET MOUNT) 4+ BACTERIA SEEN; EPITHELIALS (WET MOUNT) 4+ EPITHELIALS SEEN; T.VAGINALIS (WET MOUNT) NO TRICHOMONAS SEEN; WBCS (WET MOUNT) RARE WBCS SEEN; YEAST (WET MOUNT) NO YEAST SEEN
[2018-01-26 18:38] VITALS: BP 121/62
[2018-01-26 18:49] LABS: CHLAM PCR NOT DETECTED (NOT DETECT); GON PCR NOT DETECTED (NOT DETECT)
== END 2018-01-26 18:38 | disposition home or self-care (01) ==
LOC: ER 15:23
DX: O26.891 Other specified pregnancy related conditions, first trimester (principal); O23.591 Infection of other part of genital tract in pregnancy, first trimester; B96.89 Other specified bacterial agents as the cause of diseases classified elsewhere; O21.9 Vomiting of pregnancy, unspecified; O99.331 Smoking (tobacco) complicating pregnancy, first trimester; F17.210 Nicotine dependence, cigarettes, uncomplicated; O99.511 Diseases of the respiratory system complicating pregnancy, first trimester; J45.909 Unspecified asthma, uncomplicated; O24.111 Pre-existing type 2 diabetes mellitus, in pregnancy, first trimester; E11.9 Type 2 diabetes mellitus without complications; O99.321 Drug use complicating pregnancy, first trimester; F12.10 Cannabis abuse, uncomplicated; Z3A.01 Less than 8 weeks gestation of pregnancy; Z88.8 Allergy status to other drugs, medicaments and biological substances; Z88.6 Allergy status to analgesic agent
CPT/HCPCS: 99406; 99283; 96372; 36415; 87210; 84702; 81001; 87491; 87591; A9270; J3490; J0696

== ENCOUNTER 2018-03-31 16:11 | Emergency (ER) | payer MEDICARE, MEDICAID ==
[2018-03-31] MEDS ORDERED: CEPHALEXIN 500 MG CAPSULE PO ONE (16:44)
[2018-03-31] MEDS ORDERED: LIDOCAINE 1%/EPINEPHRINE INJ 20 ML VIAL INJ ONE (16:44)
[2018-03-31] MEDS ORDERED: HYDROCODONE/ACETAMINOPHEN 5-325 MG TABLET PO ONE (16:44)
--- NOTE | 2018-03-31 16:47 | ER Document Report ---
ED Medical Screen (RME) - General Chief Complaint: Laceration Stated Complaint: FALL/LIGHTHEADED Time Seen by Provider: 03/31/18 16:31 Mode of Arrival: Wheelchair Information source: Patient Notes: Patient states that she slipped on a step and fell hitting her right knee on a broken part of the step. Patient with laceration overlying right knee. I have greeted and performed a rapid initial assessment of this patient. A comprehensive ED assessment and evaluation of the patient, analysis of test results and completion of the medical decision making process will be conducted by additional ED providers. TRAVEL OUTSIDE OF THE [place] IN LAST 30 DAYS: No - Related Data Allergies/Adverse Reactions: bupropion HCl [From Wellbutrin] Allergy (Verified 03/31/18 16:15) VOMITING divalproex sodium [From Depakote] Allergy (Verified 03/31/18 16:15) VOMITING haloperidol [From Haldol] Allergy (Verified 03/31/18 16:15) Distonic Reaction olanzapine [From Zyprexa] Allergy (Verified 03/31/18 16:15) Rash topiramate [From Topamax] Allergy (Verified 03/31/18 16:15) Speech problems, drooling Past Medical History - Social History Family history: Reviewed & Not Pertinent Pulmonary Medical History: Reports: Hx Asthma Endocrine Medical History: Reports: Hx Diabetes Mellitus Type 2 Renal/ Medical History: Reports: Hx Kidney Stones, Hx Ovarian Cysts. Denies: Hx Peritoneal Dialysis Psychiatric Medical History: Reports: Hx Anxiety, Hx Bipolar Disorder, Hx Depression, Hx Personality Disorder, Hx Post Traumatic Stress Disorder Past Surgical History: Reports: Hx Section - 04/24/15, Hx Cholecystectomy, Hx Gynecologic Surgery - right ovary removed 09/03/13 - Immunizations Immunizations up to date: Yes Hx Diphtheria, Pertussis, Tetanus Vaccination: Yes - unknown History of Influenza Vaccine for 03/2017 - 08/2017 Season: Yes Influenza Administration Date for 03/2017 - 08/2017 Season: 03/12/17 Physical Exam - Vital signs Vitals: Temp Pulse Resp BP Pulse Ox 98.4 F 110 H 14 121/61 100 03/31/18 16:20 03/31/18 16:20 03/31/18 16:20 03/31/18 16:20 03/31/18 16:20 - Skin Skin irregularity: Laceration - Irregular contaminated laceration to right knee Course - Vital Signs Vital signs: Temp Pulse Resp BP Pulse Ox 98.4 F 110 H 14 121/61 100 03/31/18 16:20 03/31/18 16:20 03/31/18 16:20 03/31/18 16:20 03/31/18 16:20 Doctor's Discharge - Discharge Referrals: MARIO JOHNSTON, [employer]FTSM[employer] [Primary Care Provider] - Follow up as needed
--- NOTE | 2018-03-31 17:51 | ER Document Report ---
ED Extremity Problem, Lower - General Chief Complaint: Laceration Stated Complaint: FALL/LIGHTHEADED Time Seen by Provider: 03/31/18 16:31 Mode of Arrival: Wheelchair Information source: Patient Notes: 22-year-old female presented to ED for complaint of pain to her right knee he states that she slipped on a step falling down landing on her knee on the broken part of the step. She does have a laceration to her right knee. She is alert and oriented respirations regular and unlabored speaking in full sentences. TRAVEL OUTSIDE OF THE [place] IN LAST 30 DAYS: No - HPI Patient complains to provider of: Injury, Pain, Swelling Location: Knee Occurred: Just prior to arrival Where: Home, Outdoors Onset/Duration: Sudden, Persistent Quality of pain: Sharp, Throbbing Severity: Severe Pain Level: 5 Context: Fell, Laceration Recent injury: Yes Associated symptoms: Painful ambulation Exacerbated by: Hanging down, Movement, Walking Relieved by: Elevation, Ice, Rest - Related Data Allergies/Adverse Reactions: bupropion HCl [From Wellbutrin] Allergy (Verified 03/31/18 16:15) VOMITING divalproex sodium [From Depakote] Allergy (Verified 03/31/18 16:15) VOMITING haloperidol [From Haldol] Allergy (Verified 03/31/18 16:15) Distonic Reaction olanzapine [From Zyprexa] Allergy (Verified 03/31/18 16:15) Rash topiramate [From Topamax] Allergy (Verified 03/31/18 16:15) Speech problems, drooling Past Medical History - General Information source: Patient - Social History Smoking Status: Current Every Day Smoker Cigarette use (# per day): Yes - 1/2 ppd Chew tobacco use (# tins/day): No Smoking Education Provided: Yes - 4 min Frequency of alcohol use: None Drug Abuse: Marijuana - Stopped Lives with: Family Family History: CAD, DM Patient has suicidal ideation: No Patient has homicidal ideation: No - Past Medical History Cardiac Medical History: Reports: None Pulmonary Medical History: Reports: Hx Asthma EENT Medical History: Reports: None Neurological Medical History: Reports: None Endocrine Medical History: Reports: Hx Diabetes Mellitus Type 2 Renal/ Medical History: Reports: Hx Kidney Stones, Hx Ovarian Cysts Malignancy Medical History: Reports: None GI Medical History: Reports: None Musculoskeletal Medical History: Reports None Skin Medical History: Reports None Psychiatric Medical History: Reports: Hx Anxiety, Hx Bipolar Disorder, Hx Depression, Hx Personality Disorder, Hx Post Traumatic Stress Disorder Traumatic Medical History: Reports: None Infectious Medical History: Reports: None Past Surgical History: Reports: Hx Section - 04/24/15, Hx Cholecystectomy, Hx Gynecologic Surgery - right ovary removed 09/03/13 - Immunizations Immunizations up to date: Yes Hx Diphtheria, Pertussis, Tetanus Vaccination: Yes - unknown Review of Systems - Review of Systems Constitutional: No symptoms reported EENT: No symptoms reported Cardiovascular: No symptoms reported Respiratory: No symptoms reported Gastrointestinal: No symptoms reported Genitourinary: No symptoms reported Female Genitourinary: No symptoms reported Musculoskeletal: Back pain, Muscle pain, Muscle stiffness Skin: No symptoms reported Hematologic/Lymphatic: No symptoms reported Neurological/Psychological: No symptoms reported -: Yes All other systems reviewed and negative Physical Exam - Vital signs Vitals: Temp Pulse Resp BP Pulse Ox 98.4 F 110 H 14 121/61 100 03/31/18 16:20 03/31/18 16:20 03/31/18 16:20 03/31/18 16:20 03/31/18 16:20 Interpretation: Normal - General General appearance: Appears well, Alert - HEENT Head: Normocephalic, Atraumatic Eyes: Normal Pupils: PERRL - Respiratory Respiratory status: No respiratory distress Chest status: Nontender Breath sounds: Normal Chest palpation: Normal - Cardiovascular Rhythm: Regular Heart sounds: Normal auscultation Murmur: No - Abdominal Inspection: Normal Distension: No distension Bowel sounds: Normal Tenderness: Nontender Organomegaly: No organomegaly - Back Back: Normal, Tender - Left mid back pain no vertebral tenderness patient had a very small area to the mid left back that was painful. 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 She states she did not fall. Patient has point tenderness. Patient is able to move freely after massage in the back.. No: Deformity/step-off, CVA tenderness, Vertebra tenderness, Scars, Scoliosis, Wounds - Extremities General upper extremity: Normal inspection, Nontender, Normal color, Normal ROM , Normal temperature General lower extremity: Normal inspection, Nontender, Normal color, Normal ROM , Normal temperature, Normal weight bearing. No: Annie's sign - Neurological Neuro grossly intact: Yes Cognition: Normal Orientation: AAOx4 Hamzah Coma Scale Eye Opening: Spontaneous [place] Coma Scale Verbal: Oriented [place] Coma Scale Motor: Obeys Commands [place] Coma Scale Total: 15 Speech: Normal Motor strength normal: LUE, RUE, LLE, RLE Sensory: Normal - Psychological Associated symptoms: Normal affect, Normal mood - Skin Skin Temperature: Warm Skin Moisture: Dry Skin Color: Normal Course - Vital Signs Vital signs: Temp Pulse Resp BP Pulse Ox 98.6 F 86 18 132/97 H 98 03/31/18 19:04 03/31/18 19:04 03/31/18 19:04 03/31/18 19:04 03/31/18 19:04 - Diagnostic Test Radiology reviewed: Image reviewed, Reports reviewed Procedures - Immobilization Right Knee Time completed: 19:20 Pre-Proc Neuro Vasc Exam: Normal Immobilizer type: Knee immobilizer Performed by: PCT Post-Proc Neuro Vasc Exam: Normal Alignment checked and good: Yes - Laceration/Wound Repair Right Knee Time completed: 19:00 Wound length (cm): 6 Wound's Depth, Shape: Irregular - multiple Laceration pre-procedure: Sterile PPE donned, Sterile drapes applied, Shur- Clens applied Anesthetic type: 1% Lidocaine Wound explored: Contaminated Irrigated w/ Saline (mLs): 300 Wound Repaired With: Sutures Suture Size/Type: 4:0, Ethilon Number of Sutures: 10 Post-procedure wound care: Sterile dressing applied, Splint applied - knee immobilizer Post-procedure NV exam normal: Yes Complications: No Discharge - Discharge Clinical Impression: Fall Qualifiers: Encounter type: initial encounter Qualified Code(s): W19.XXXA - Unspecified fall, initial encounter Knee laceration Qualifiers: Encounter type: initial encounter Laterality: right Qualified Code(s): S81.011A - Laceration without foreign body, right knee, initial encounter Condition: Stable Disposition: HOME, SELF-CARE Additional Instructions: Knee Laceration A laceration on the knee can present some problems. The skin over the knee heals slowly, and seems especially prone to infection. Bending of the knee can disturb the cut and sometimes prevents proper healing. It's important that the wound remain undisturbed. Bending of the knee is absolutely forbidden if it pulls on the stitches. No contact sports or kneeling are allowed. Keep the wound and dressing clean. Do not shower or bathe the area unless okayed by the doctor. If the dressing gets wet, remove it and blot the wound dry. Then reapply a clean, dry dressing. Change the dressing once a day. If any signs of infection occur (swelling, redness, increasing tenderness, red streaks, tender lumps in the groin above the laceration, or fever), see the doctor immediately. SOAP CLEANSING: Gently wash the wound daily using a mild soap (like Ivory, Phisoderm, Neutrogena). Use warm water, rubbing gently until all debris, ooze, and crusting have been washed from the wound. Allow to dry briefly (about 10 minutes) after cleaning. Repeat this cleansing at least three times a day for the first two days and then once or twice a day. ANTIBIOTIC OINTMENT PROTECTION: Your wounds are such that dressing them is not practical or optional. After cleansing, you should apply a thin coating of antibiotic ointment ( Bacitracin, not Neosporin) to the wounds at least three times daily. This lessens infection risk, and may decrease the amount of scarring. Use a q-tip or dull butter knife, not your finger, to apply this ointment. Any debris or ooze which builds up in the ointment should be gently rubbed off with a sterile gauze pad. Harder crusting may need to be gently scrubbed off with a clean wash cloth with soap and warm water, perhaps applying a warm, wet wash cloth to the wound for ten minutes first. Development of redness, severe itching, or blistering may mean allergy to the ointment. See the doctor. KNEE IMMOBILIZING SPLINT: The knee immobilizing splint will protect the injury while healing begins. This type of splint does not allow the knee to bend at all. No running or sports will be possible. If the splint allows painfree walking, it's giving adequate protection. If there is still significant pain, crutches may be needed as well. Don't do anything that hurts. Adjusted the splint, if necessary. The stiffeners on the sides are attached with Velcro, so they can be easily moved to adjust for thigh and calf size. If you need help with these adjustments, come back. You will lose muscle strength in the thigh while using this splint. The doctor will advise you if it's safe to do isometric knee exercises while you use it. USE OF CRUTCHES: The doctor has recommended that you not bear weight at this time. You will need to use crutches. Adjust the crutches so the tops come to about two inches under the armpit while you are standing upright. Use your hands -- not your armpits -- to support your weight. To get into a chair, support yourself with one crutch on the injured side. Hold the chair with the other hand, then lower yourself while putting all your weight on the good leg. Going up stairs is `good leg up, step up, then bring up crutches and bad leg.' Down stairs is `bad leg and crutches down, then bring good leg down.' If you develop numbness or swelling in an arm or hand, you are using the crutches incorrectly. Return if you are having any problems with the crutches. ICE & ELEVATION: Apply ice packs frequently against the painful area. Many different schedules are recommended, such as "20 minutes on, 20 minutes off" or "one hour ice, two hours rest." If you need to work, you may need to go longer between ice treatments. You should plan to have the area ice packed AT LEAST one- fourth of the time. The ice should be applied over the wrap, tape, or splint, or over a layer of cloth -- not directly against the skin. Some ice bags have a built-in cloth and can be put directly on the skin. Your injured part should be elevated as much as possible over the next 48 hours. Try to keep the injury above the level of the heart. Avoid use of the injured area. Elevation and rest will decrease the swelling. USE OF LIIY-PVK-FONGFNJ IBUPROFEN: Ibuprofen (Advil, Nuprin, Medipren, Motrin IB) is a medication for fever and pain control. In addition, it has anti- inflammatory effects which may be beneficial, especially in the treatment of injuries. It's best to take ibuprofen with food. Persons with ulcer disease or allergy to aspirin should notify their physician of this before taking ibuprofen. Ibuprofen can be given every four to six hours, for a total of four doses daily. Age Pain or fever dose Antiinflammatory dose 6-8 yr 200 mg (1 tab) 200 mg (1 tab) 9-11 yr 200 mg (1 tab) 200-400 mg (1-2 tab) 11-14 yr 200-400 mg (1-2 tab) 400 mg (2 tab) 15-adult 400 mg (2 tab) 600 mg (3 tab) FOLLOW-UP CARE: Please return in __3___ days for an infection check and dressing change. 10 Your sutures should be removed in __10___ days. To facilitate a timely removal of your sutures, you may return to the Emergency Department at [facility]. You do not need to call for an appointment, but the best time to come in for suture removal is early in the morning. If you have been referred to another physician for follow-up care, call that physicians office for an appointment as you were instructed. If you experience a significant change in your laceration, or if you are concerned there may be an infection (swelling, redness, drainage, increasing tenderness, red streaks, tender lumps in the armpit or groin above the laceration, or fever) , return to the Emergency Department immediately re-evaluation. Prescriptions: Cephalexin Monohydrate [Keflex 500 mg Capsule] 500 mg PO QID #20 capsule Forms: Smoking Cessation Education, Return to Work Referrals: MARIO JOHNSTON NP [NURSE PRACTITIONER] - Follow up as needed
--- NOTE | 2018-03-31 18:09 | RADIOLOGY REPORT (SQ) ---
EXAM DESCRIPTION: KNEE RIGHT 4 VIEWS COMPLETED DATE/TIME: 03/31/2018 4:59 pm REASON FOR STUDY: fall, knee injury COMPARISON: 05/12/2015 NUMBER OF VIEWS: Four views. TECHNIQUE: AP, lateral, and both oblique radiographic images acquired of the right knee. LIMITATIONS: None. FINDINGS: MINERALIZATION: Normal. BONES: No acute fracture or dislocation. No worrisome bone lesions. JOINT: No effusion. SOFT TISSUES: No soft tissue swelling. No radio-opaque foreign body. OTHER: No other significant finding. IMPRESSION: NEGATIVE STUDY OF THE RIGHT KNEE. NO RADIOGRAPHIC EVIDENCE OF ACUTE INJURY. TECHNICAL DOCUMENTATION: JOB ID: [id number] [employer]- All Rights Reserved Reading location - IP/workstation name: [email or web address]
[2018-03-31 19:05] VITALS: BP 132/97
== END 2018-03-31 19:12 | disposition home or self-care (01) ==
LOC: ER 16:11
DX: S81.011A Laceration without foreign body, right knee, initial encounter (principal); M25.561 Pain in right knee; W10.9XXA Fall (on) (from) unspecified stairs and steps, initial encounter; Y93.89 Activity, other specified; Y92.009 Unspecified place in unspecified non-institutional (private) residence as the place of occurrence of the external cause; M54.89 Other dorsalgia; M79.10 Myalgia, unspecified site; J45.909 Unspecified asthma, uncomplicated; E11.9 Type 2 diabetes mellitus without complications; F17.210 Nicotine dependence, cigarettes, uncomplicated; Z71.6 Tobacco abuse counseling; Z88.8 Allergy status to other drugs, medicaments and biological substances; Z88.6 Allergy status to analgesic agent
CPT/HCPCS: 99406; 99283; 73564; 12002; L1830; A9270 ×2; J3490

== ENCOUNTER 2018-04-04 21:38 | Emergency (ER) | payer MEDICARE, MEDICAID ==
[2018-04-04 21:55] VITALS: BP 113/55
--- NOTE | 2018-04-04 22:21 | ER Document Report ---
ED Suture/Wound Recheck - General Chief Complaint: Suture Recheck Stated Complaint: KNEE PAIN Time Seen by Provider: 04/04/18 22:04 Mode of Arrival: Ambulatory Information source: Patient Notes: 22-year-old female presented to ED for recheck on her knee laceration. She was seen here Friday for laceration and received sutures and instructions for care of the laceration. She states that she thought she had a fever today and she was concerned that she might have some infection in this wound. She states she has been cleaning the wound as instructed. She states there is no drainage or redness she just wanted to be have the wound rechecked. Patient is alert and oriented respirations regular and unlabored speaking in full sentences walks with a slight limp. TRAVEL OUTSIDE OF THE [place] IN LAST 30 DAYS: No - HPI Previous ED treatment: Laceration repair Antibiotics given previously: Prescription Quality of pain: Achy Severity: Moderate Pain Level: 3 Symptoms since procedure: Pain. denies: Fever, Red streaks, Redness, Swelling, Weakness Exacerbated by: Movement, Walking Relieved by: Remaining still - Related Data Allergies/Adverse Reactions: bupropion HCl [From Wellbutrin] Allergy (Verified 03/31/18 16:15) VOMITING divalproex sodium [From Depakote] Allergy (Verified 03/31/18 16:15) VOMITING haloperidol [From Haldol] Allergy (Verified 03/31/18 16:15) Distonic Reaction olanzapine [From Zyprexa] Allergy (Verified 03/31/18 16:15) Rash topiramate [From Topamax] Allergy (Verified 03/31/18 16:15) Speech problems, drooling Past Medical History - General Information source: Patient - Social History Smoking Status: Current Every Day Smoker Cigarette use (# per day): Yes - Half a pack a day Chew tobacco use (# tins/day): No Smoking Education Provided: Yes - 4 minutes Frequency of alcohol use: None Drug Abuse: None Lives with: Family Family History: CAD, DM Patient has suicidal ideation: No Patient has homicidal ideation: No - Past Medical History Cardiac Medical History: Reports: None Pulmonary Medical History: Reports: Hx Asthma EENT Medical History: Reports: None Neurological Medical History: Reports: None Endocrine Medical History: Reports: None, Hx Diabetes Mellitus Type 2 Renal/ Medical History: Reports: Hx Kidney Stones, Hx Ovarian Cysts Malignancy Medical History: Reports: None GI Medical History: Reports: None Musculoskeletal Medical History: Reports None Skin Medical History: Reports None Psychiatric Medical History: Reports: Hx Anxiety, Hx Bipolar Disorder, Hx Depression, Hx Personality Disorder, Hx Post Traumatic Stress Disorder Traumatic Medical History: Reports: None Infectious Medical History: Reports: None Past Surgical History: Reports: Hx Section - 04/24/15, Hx Cholecystectomy, Hx Gynecologic Surgery - right ovary removed 09/03/13 - Immunizations Immunizations up to date: Yes Hx Diphtheria, Pertussis, Tetanus Vaccination: Yes - unknown Review of Systems - Review of Systems Constitutional: No symptoms reported EENT: No symptoms reported Cardiovascular: No symptoms reported Respiratory: No symptoms reported Gastrointestinal: No symptoms reported Genitourinary: No symptoms reported Female Genitourinary: No symptoms reported Musculoskeletal: Other - Continued knee pain from fall Skin: Other - No drainage redness or inflammation to laceration laceration is healing well Hematologic/Lymphatic: No symptoms reported Neurological/Psychological: No symptoms reported -: Yes All other systems reviewed and negative Physical Exam - Vital signs Vitals: Temp Pulse Resp BP Pulse Ox 98.4 F 69 20 113/55 L 97 04/04/18 21:53 04/04/18 21:53 04/04/18 21:53 04/04/18 21:53 04/04/18 21:53 Interpretation: Normal - General General appearance: Appears well, Alert - HEENT Head: Normocephalic, Atraumatic Eyes: Normal Pupils: PERRL - Respiratory Respiratory status: No respiratory distress Chest status: Nontender Breath sounds: Normal Chest palpation: Normal - Cardiovascular Rhythm: Regular Heart sounds: Normal auscultation Murmur: No - Abdominal Inspection: Normal Distension: No distension Bowel sounds: Normal Tenderness: Nontender Organomegaly: No organomegaly - Back Back: Normal, Nontender - Extremities General upper extremity: Normal inspection, Nontender, Normal color, Normal ROM , Normal temperature General lower extremity: Normal ROM, Normal temperature, Normal weight bearing. No: Annie's sign Knee: Tender, Ecchymosis, Laceration - Sutures intact, healing, Pain with ROM, Patellar tendon intact, Other - Healing laceration. No: Abrasion, Deformity, Dislocation, Drawer's test instability, Joint effusion, Laxity with valgus stress, Laxity with varus stress, Popliteal fossa tender, Tender joint line, Unable to bear weight Calf: Normal Ankle: Normal Foot: Normal - Neurological Neuro grossly intact: Yes Cognition: Normal Orientation: AAOx4 Hamzah Coma Scale Eye Opening: Spontaneous [place] Coma Scale Verbal: Oriented Hamz[place] Coma Scale Motor: Obeys Commands Hamzah Coma Scale Total: 15 Speech: Normal Motor strength normal: LUE, RUE, LLE, RLE Sensory: Normal - Psychological Associated symptoms: Normal affect, Normal mood - Skin Skin Temperature: Warm Skin Moisture: Dry Skin Color: Normal Course - Re-evaluation Re-evalutation: 04/05/18 00:29 Patient instructed to continue current care. She is instructed to continue cleaning and dressing the knee. She is instructed to continue wearing the knee immobilizer and follow-up with orthopedics. Patient was instructed to remove sutures and 10 days from date of laceration as previously instructed. Patient verbalized understanding of instructions. - Vital Signs Vital signs: Temp Pulse Resp BP Pulse Ox 98.4 F 69 20 113/55 L 97 04/04/18 21:53 04/04/18 21:53 04/04/18 21:53 04/04/18 21:53 04/04/18 21:53 Discharge - Discharge Clinical Impression: Suture check Condition: Stable Disposition: HOME, SELF-CARE Additional Instructions: SOAP CLEANSING: Gently wash the wound daily using a mild soap (like Ivory, Phisoderm, Neutrogena). Use warm water, rubbing gently until all debris, ooze, and crusting have been washed from the wound. Allow to dry briefly (about 10 minutes) after cleaning. Repeat this cleansing at least three times a day for the first two days and then once or twice a day. FOLLOW-UP CARE: Your sutures should be removed in ___6__ days. To facilitate a timely removal of your sutures, you may return to the Emergency Department at [facility]. You do not need to call for an appointment, but the best time to come in for suture removal is early in the morning. If you have been referred to another physician for follow-up care, call that physicians office for an appointment as you were instructed. If you experience a significant change in your laceration, or if you are concerned there may be an infection (swelling, redness, drainage, increasing tenderness, red streaks, tender lumps in the armpit or groin above the laceration, or fever) , return to the Emergency Department immediately re-evaluation. Forms: Smoking Cessation Education Referrals: DIMA TABARES MD [Primary Care Provider] - Follow up as needed MADELEINE GANT MD [ACTIVE STAFF] - Follow up as needed
== END 2018-04-04 22:23 | disposition home or self-care (01) ==
LOC: ER 21:38
DX: S81.019D Laceration without foreign body, unspecified knee, subsequent encounter (principal); W19.XXXD Unspecified fall, subsequent encounter; J45.909 Unspecified asthma, uncomplicated; F17.210 Nicotine dependence, cigarettes, uncomplicated; Z71.6 Tobacco abuse counseling; Z88.8 Allergy status to other drugs, medicaments and biological substances; Z88.6 Allergy status to analgesic agent
CPT/HCPCS: 99281; 99406

== ENCOUNTER 2018-04-10 13:50 | Emergency (ER) | payer MEDICARE, MEDICAID ==
[2018-04-10 13:54] VITALS: BP 114/63
--- NOTE | 2018-04-10 14:07 | ER Document Report ---
HPI - HPI Pain Level: 2 Notes: Patient presenting to the emergency department with chief complaint for suture removal. Patient reports she had sutures placed to her right knee 10 days ago. Denies any other complaints or concerns. - REPRODUCTIVE Reproductive: DENIES: : Past Medical History - General Information source: Patient - Social History Smoking Status: Current Every Day Smoker Frequency of alcohol use: Occasional Drug Abuse: None Family History: CAD, DM Patient has suicidal ideation: No Patient has homicidal ideation: No Pulmonary Medical History: Reports: Hx Asthma Endocrine Medical History: Reports: Hx Diabetes Mellitus Type 2 Renal/ Medical History: Reports: Hx Kidney Stones, Hx Ovarian Cysts. Denies: Hx Peritoneal Dialysis Psychiatric Medical History: Reports: Hx Anxiety, Hx Bipolar Disorder, Hx Depression, Hx Personality Disorder, Hx Post Traumatic Stress Disorder Past Surgical History: Reports: Hx Section - 04/24/15, Hx Cholecystectomy, Hx Gynecologic Surgery - right ovary removed 09/03/13 - Immunizations Immunizations up to date: Yes Hx Diphtheria, Pertussis, Tetanus Vaccination: Yes - unknown Vertical Provider Document - CONSTITUTIONAL Notes: PHYSICAL EXAMINATION: GENERAL: Well-appearing, well-nourished and in no acute distress. HEAD: Atraumatic, normocephalic. EYES: Pupils equal round extraocular movements intact, conjunctiva are normal. ENT: Nares patent NECK: Normal range of motion LUNGS: No respiratory distress Musculoskeletal: Normal range of motion NEUROLOGICAL: Normal speech, normal gait. PSYCH: Normal mood, normal affect. SKIN: Warm, Dry, normal turgor, no rashes or lesions noted. Healing laceration noted to right knee, 10 sutures are not placed and ready to be removed. - INFECTION CONTROL TRAVEL OUTSIDE OF THE [place] IN LAST 30 DAYS: No Course - Re-evaluation Re-evalutation: 04/10/18 14:04 Sutures removed. Patient instructed to continue using bacitracin and a simple dressing. - Vital Signs Vital signs: Temp Pulse Resp BP Pulse Ox 99.1 F 104 H 16 114/63 96 04/10/18 13:54 04/10/18 13:54 04/10/18 13:54 04/10/18 13:54 04/10/18 13:54 Discharge - Discharge Clinical Impression: Encounter for removal of sutures Condition: Stable Disposition: HOME, SELF-CARE Additional Instructions: Your sutures were removed today. Please continue to put bacitracin and a Band- Aid on the area change this at least twice daily. You should probably continue to use the knee immobilizer for another 3-5 days. Follow-up with your primary care provider for any further concerns. Referrals: DIMA TABARES MD [Primary Care Provider] - Follow up as needed
== END 2018-04-10 14:35 | disposition home or self-care (01) ==
LOC: ER 13:50
DX: S81.011D Laceration without foreign body, right knee, subsequent encounter (principal); W45.8XXD Other foreign body or object entering through skin, subsequent encounter; F17.200 Nicotine dependence, unspecified, uncomplicated; J45.909 Unspecified asthma, uncomplicated; E11.9 Type 2 diabetes mellitus without complications

== ENCOUNTER 2018-04-27 05:12 | Emergency (ER) | payer MEDICARE, MEDICAID ==
[2018-04-27 05:17] VITALS: BP 125/65
[2018-04-27] MEDS ORDERED: OXYCODONE-ACETAMINOPHEN 5-325 MG TABLET PO ONE (06:23)
--- NOTE | 2018-04-27 06:24 | ER Document Report ---
ED Oral Problem - General Chief Complaint: Toothache Stated Complaint: ABSCESS Time Seen by Provider: 04/27/18 05:41 Notes: 22-year-old female to the emergency department chief complaint of dental abscess. Patient is currently on antibiotics for tooth infection. States it is not getting better. Has only taken 2 doses. Was told to go to another ER in the event that her face is getting some more swollen. Denies any difficulty swallowing. Denies a severe headache. Most of the pain is located on the right axilla area. Patient with multiple poor dentition areas in the mouth. States that she has a dentist but cannot see them until tomorrow. TRAVEL OUTSIDE OF THE [place] IN LAST 30 DAYS: No - HPI Patient complains to provider of: Swelling of face, Toothache Onset: Yesterday Onset: Gradual Quality of pain: Achy Severity: Moderate Pain Level: 4 Context: Fractured tooth Sore throat: Moderate Swollen jaw/face: Moderate Associated symptoms: None - Related Data Allergies/Adverse Reactions: bupropion HCl [From Wellbutrin] Allergy (Verified 04/10/18 13:51) VOMITING divalproex sodium [From Depakote] Allergy (Verified 04/10/18 13:51) VOMITING haloperidol [From Haldol] Allergy (Verified 04/10/18 13:51) Distonic Reaction olanzapine [From Zyprexa] Allergy (Verified 04/10/18 13:51) Rash topiramate [From Topamax] Allergy (Verified 04/10/18 13:51) Speech problems, drooling Past Medical History - General Information source: Patient - Social History Smoking Status: Current Every Day Smoker Cigarette use (# per day): Yes Frequency of alcohol use: None Drug Abuse: None Family History: CAD, DM Patient has suicidal ideation: No Patient has homicidal ideation: No Pulmonary Medical History: Reports: Hx Asthma Endocrine Medical History: Reports: Hx Diabetes Mellitus Type 2 Renal/ Medical History: Reports: Hx Kidney Stones, Hx Ovarian Cysts. Denies: Hx Peritoneal Dialysis Psychiatric Medical History: Reports: Hx Anxiety, Hx Bipolar Disorder, Hx Depression, Hx Personality Disorder, Hx Post Traumatic Stress Disorder Past Surgical History: Reports: Hx Section - 04/24/15, Hx Cholecystectomy, Hx Gynecologic Surgery - right ovary removed 09/03/13 - Immunizations Immunizations up to date: Yes Hx Diphtheria, Pertussis, Tetanus Vaccination: Yes - unknown Review of Systems - Review of Systems Constitutional: denies: Fever, Malaise, Weakness EENT: See HPI, Mouth pain, Mouth swelling, Dental problem. denies: Throat pain , Difficulty swallowing, Throat swelling Cardiovascular: denies: Chest pain, Palpitations, Heart racing Respiratory: denies: Cough, Hurts to breathe, Short of breath, Wheezing Gastrointestinal: denies: Abdominal pain, Diarrhea, Nausea, Vomiting Musculoskeletal: denies: Back pain, Muscle pain Skin: denies: Change in color, Dryness, Lesions, Rash Neurological/Psychological: denies: Confusion, Weakness, Paralysis, Seizure, Headaches Physical Exam - Vital signs Vitals: Temp Pulse Resp BP Pulse Ox 98.7 F 97 16 125/65 94 04/27/18 05:16 04/27/18 05:16 04/27/18 05:16 04/27/18 05:16 04/27/18 05:16 Interpretation: Normal - General General appearance: Appears well, Alert - HEENT Head: Normocephalic Eyes: Normal Sinus: Normal Nasal: Normal Mouth/Lips: Dental fracture - Couple areas of dental fractures and poor dentition with cavities, Other - Patient appears to have dental abscess right upper mandible area. There is fluctuance along the gumline. There appears to be fullness in the right upper buccal area. Pharynx: Normal - Respiratory Respiratory status: No respiratory distress Chest status: Nontender Breath sounds: Normal Chest palpation: Normal - Cardiovascular Rhythm: Regular Heart sounds: Normal auscultation Murmur: No - Neurological Neuro grossly intact: Yes Cognition: Normal Orientation: AAOx4 Hamzah Coma Scale Eye Opening: Spontaneous [place] Coma Scale Verbal: Oriented Hamzah Coma Scale Motor: Obeys Commands Hamzah Coma Scale Total: 15 Speech: Normal Motor strength normal: LUE, RUE, LLE, RLE Sensory: Normal - Skin Skin Temperature: Warm Skin Moisture: Dry Skin Color: Normal, Other - No obvious facial cellulitis. Course - Re-evaluation Re-evalutation: 04/27/18 06:35 We will give her a Percocet at this time as it looks like it probably hurts. Offered abscess I&D. Offered IV antibiotics. Patient would like some time to think about it. 04/27/18 07:00 Patient does not want I&D. We will give her a dose of IV antibiotics and some steroids. Advised to return for any worsening symptoms or concerns. - Vital Signs Vital signs: Temp Pulse Resp BP Pulse Ox 98.7 F 97 16 125/65 94 04/27/18 05:16 04/27/18 05:16 04/27/18 05:16 04/27/18 05:16 04/27/18 05:16 Discharge - Discharge Clinical Impression: Abscess, dental Condition: Good Disposition: HOME, SELF-CARE Instructions: Abscess ([facility]), Toothache ([facility]) Additional Instructions: In the event swelling gets worse or you have difficulty breathing or swallowing please return immediately. You have refused the abscess drainage procedure today. This may be the only thing which will ultimately help. A dentist can provide this procedure as well. I encourage you highly to go see a dentist today or tomorrow. Continue with your clindamycin but increase the dosage to 4 times a day instead of 3 times a day. Prescriptions: Hydrocodone/Acetaminophen [[place] 5-325 mg Tablet] 1 tab PO BID PRN 4 Days #8 tablet PRN Reason: Referrals: DIMA TABARES MD [Primary Care Provider] - Follow up as needed
[2018-04-27] MEDS ORDERED: AMPICILLIN SOD/SULBACTAM 3 GM VIAL IV ONE (07:00)
[2018-04-27] MEDS ORDERED: DEXAMETHASONE SOD PHOS INJ 10 MG/1 ML VIAL IV ONE (07:00)
[2018-04-27] MEDS ORDERED: LIDOCAINE 1% INJ (10 MG/ML) 10 ML MDV INJ ONE (08:04)
== END 2018-04-27 09:36 | disposition home or self-care (01) ==
LOC: ER 05:12
PROC: 0C95XZZ Drainage of Upper Gingiva, External Approach (ICD-10-PCS; principal; 2018-04-27)
DX: K04.7 Periapical abscess without sinus (principal); K08.89 Other specified disorders of teeth and supporting structures; R22.0 Localized swelling, mass and lump, head; F17.210 Nicotine dependence, cigarettes, uncomplicated; E11.9 Type 2 diabetes mellitus without complications; J45.909 Unspecified asthma, uncomplicated
CPT/HCPCS: 99283; 96374; 96375; 41800; J0295; A9270; J1100

== ENCOUNTER 2018-09-10 08:09 | Emergency (ER) | payer MEDICARE, MEDICAID ==
[2018-09-10 09:02] LABS: ABSOLUTE EOSINOPHILS # (AUTO) 0.2 10^3/uL (0.0-0.6); ABSOLUTE MONOCYTES (AUTO) 0.5 10^3/uL (0.1-1.4); ABSOLUTE NEUT (AUTO) 8.9 10^3/uL (1.7-8.2); BASOPHILS % (AUTO) 0.3 % (0-2); EOSINOPHILS % (AUTO) 1.5 % (0-6); HEMATOCRIT 37.1 % (36.0-47.0); HEMOGLOBIN 12.8 g/dL (12.0-15.5); LYMPHOCYTES % (AUTO) 17.4 % (13-45); MEAN CORPUSCULAR HEMOGLOBIN 29.4 pg (27.0-33.4); MEAN CORPUSCULAR HGB CONC 34.6 g/dL (32.0-36.0); MEAN CORPUSCULAR VOLUME 85 fl (80-97); MONOCYTES % (AUTO) 4.1 % (3-13); PLATELET COUNT 215 10^3/uL (150-450); RED BLOOD COUNT 4.36 10^6/uL (3.72-5.28); RED CELL DISTRIBUTION WIDTH 14.1 % (11.5-14.0); SEGMENTED NEUTROPHILS % (AUTO) 76.7 % (42-78); TOTAL CELLS COUNTED % (AUTO) 100 %; WHITE BLOOD COUNT 11.6 10^3/uL (4.0-10.5)
[2018-09-10 09:26] LABS: ALANINE AMINOTRANSFERASE 26 U/L (9-52); ALBUMIN 3.8 g/dL (3.5-5.0); ALKALINE PHOSPHATASE 74 U/L (38-126); ANION GAP 11 (5-19); ASPARTATE AMINO TRANSFERASE 11 U/L (14-36); BILIRUBIN,DIRECT 0.2 mg/dL (0.0-0.4); BILIRUBIN,TOTAL 0.2 mg/dL (0.2-1.3); BLOOD UREA NITROGEN 7 mg/dL (7-20); CALCIUM 9.2 mg/dL (8.4-10.2); CARBON DIOXIDE 23 mmol/L (22-30); CHLORIDE 105 mmol/L (98-107); GLUCOSE 92 mg/dL (75-110); LIPASE 100.5 U/L (23-300); SODIUM 138.5 mmol/L (137-145); TOTAL PROTEIN 7.1 g/dL (6.3-8.2)
[2018-09-10 09:27] LABS: POTASSIUM 3.3 mmol/L (3.6-5.0)
[2018-09-10 09:59] LABS: AMORPHOUS SEDIMENT,URINE TRACE /HPF; APPEARANCE,URINE CLOUDY; BILIRUBIN,URINE NEGATIVE (NEGATIVE); CALCIUM OXALATE CRYSTALS,URINE TOO NUMEROUS TO CNT /HPF; COLOR,URINE YELLOW; GLUCOSE, URINE NEGATIVE (NEGATIVE); KETONES,URINE 20 mg/dL (NEGATIVE); LEUKOCYTE ESTERASE,URINE SMALL (NEGATIVE); NITRITE,URINE NEGATIVE (NEGATIVE); PROTEIN,URINE NEGATIVE (NEGATIVE); URINE SPECIFIC GRAVITY 1.023
[2018-09-10] MEDS ORDERED: NORMAL SALINE 1000 ML 1,000 ML IV ONE (09:59)
[2018-09-10] MEDS ORDERED: FAMOTIDINE INJ/PF 20 MG/2 ML SDV IV ONE (10:01)
[2018-09-10] MEDS ORDERED: PROMETHAZINE HCL INJ 25 MG/1 ML VIAL IV ONE (10:02)
--- NOTE | 2018-09-10 11:14 | RADIOLOGY REPORT (SQ) ---
EXAM DESCRIPTION: U/S [id number] TRNABD 1GES W/ODOP COMPLETED DATE/TIME: 09/10/2018 10:56 am REASON FOR STUDY: preg and abdominal pain COMPARISON: None. TECHNIQUE: Transabdominal static and realtime grayscale images acquired of the pelvis. Additional se lected spectral and color Doppler images recorded. All images stored on PACs. bHCG: Not available. CLINICAL DATES: [place]: 03/13/2019. EGA: 13 weeks 5 days LIMITATIONS: None. FINDINGS: FETUS: Single Living intrauterine . ULTRASOUND EGA: 13 weeks 5 days ULTRASOUND [place]: 03/13/2019 EFW: Not applicable less than 20 weeks. CRL: 7.7 cm FHR: 155 beats per minute. SURVEY: No visualized anomalies. AMNIOTIC FLUID: Adequate amount. PLACENTA: Not yet developed due to early gestation. SUBCHORIONIC BLEED: No SIZE OF BLEED: Not applicable. UTERUS: The uterus measures 13.5 x 10.1 x 7.2 cm. No masses. No anomalies. CERVICAL LENGTH: 3.4 cm Closed. RIGHT ADNEXA: Normal ovary with normal vascular flow. No adnexal free fluid. No adnexal masses. LEFT ADNEXA: Normal ovary with normal vascular flow. No adnexal free fluid. No adnexal masses. FREE FLUID: None. OTHER: No other significant finding. IMPRESSION: LIVING INTRAUTERINE . EGA: 13 weeks 5 days Trimester of : First - 0 to 13 weeks. TECHNICAL DOCUMENTATION: JOB ID: [id number] [employer] All Rights Reserved Reading location - IP/workstation name: [email or web address]
--- NOTE | 2018-09-10 13:13 | ER Document Report ---
ED GI/ - General Chief Complaint: Abdominal Pain Stated Complaint: ABDONIMAL PAIN Time Seen by Provider: 09/10/18 09:57 Primary Care Provider: DIMA TABARES MD [Primary Care Provider] - Follow up as needed Mode of Arrival: Ambulatory Information source: Patient Notes: Patient is a 23-year-old female comes to emergency room complaining of severe stomach pain that radiated to her back. Patient states that she is 13 weeks and has only seen the health department who states that they are scheduled to follow-up again next week. She woke up out of sleep with a severe pain and nausea with it but no vomiting. Patient has had nausea since the beginning of her but she has not had any severe vomiting. She indicates that she has no spotting she has some mild dysuria she has had 2 previous miscarriages prior to this both went to 10 weeks and the last one was in January this past year. She also indicates that she has had a right o ophorectomy and she has had a cholecystectomy along with a . She does admit to taking cough syrup last night because she has had an upper respiratory cold with cough and congestion and runny nose and the medication she states was similar to NyQuil and she is also indicates that she contacted a pharmacist who informed her that she took a third of the dose probably would not harm the baby after taking it and falling asleep when she had her episode of discomfort. She states that she has had this cold symptomatology for the last week and she is developed laryngitis within the past 24 hours. Patient is a 4 P1 and a 2. Patient also has a history of gastroesophageal reflux disease and thinks may be the medication is brought in on last night. She attempted to take a Tums without any relief and she actually vomited that back up. TRAVEL OUTSIDE OF THE [place] IN LAST 30 DAYS: No - HPI Patient complains to provider of: Abdominal pain, Dysuria, . No: Flank pain, Hematuria, Urinary retention, Vaginal bleeding, Vaginal discharge Onset: This morning Timing/Duration: Sudden, Better Quality of pain: Achy, Burning Severity at maximum: Moderate Severity in ED: Severe Pain Level: 2 Context: Location: Epigastric Adult Front & Back Diagram: 1 - Area of discomfort Vaginal bleeding (Compared to normal period): denies: Spotting, Heavier : 4 Para: 1 Abortions: 2 Sexual history: Active Associated symptoms: Urinary urgency, Vomiting - Is Exacerbated by: Denies Relieved by: Denies Similar symptoms previously: Yes Recently seen / treated by doctor: No - Related Data Allergies/Adverse Reactions: bupropion HCl [From Wellbutrin] Allergy (Verified 09/10/18 08:12) VOMITING divalproex sodium [From Depakote] Allergy (Verified 09/10/18 08:12) VOMITING haloperidol [From Haldol] Allergy (Verified 09/10/18 08:12) Distonic Reaction olanzapine [From Zyprexa] Allergy (Verified 09/10/18 08:12) Rash topiramate [From Topamax] Allergy (Verified 09/10/18 08:12) Speech problems, drooling Past Medical History - General Information source: Patient - Social History Smoking Status: Current Every Day Smoker Cigarette use (# per day): Yes - 5 cigarettes a day Chew tobacco use (# tins/day): No Smoking Education Provided: Yes Frequency of alcohol use: None Drug Abuse: None Lives with: Spouse/Significant other Family History: CAD, DM Patient has suicidal ideation: No Patient has homicidal ideation: No - Medical History Medical History: Negative - Past Medical History Cardiac Medical History: Reports: None Pulmonary Medical History: Reports: None, Hx Asthma Neurological Medical History: Reports: None Endocrine Medical History: Reports: Hx Diabetes Mellitus Type 2 Renal/ Medical History: Reports: Hx Kidney Stones, Hx Ovarian Cysts. Denies: Hx Peritoneal Dialysis Psychiatric Medical History: Reports: Hx Anxiety, Hx Bipolar Disorder, Hx Depression, Hx Personality Disorder, Hx Post Traumatic Stress Disorder Past Surgical History: Reports: Hx Section - 04/24/15, Hx Cholecystectomy, Hx Gynecologic Surgery - right ovary removed 09/03/13 - Immunizations Immunizations up to date: Yes Hx Diphtheria, Pertussis, Tetanus Vaccination: Yes - unknown Review of Systems - Review of Systems Constitutional: No symptoms reported EENT: No symptoms reported Cardiovascular: No symptoms reported Respiratory: No symptoms reported Gastrointestinal: See HPI Genitourinary: Burning Female Genitourinary: No symptoms reported Musculoskeletal: No symptoms reported Skin: No symptoms reported Hematologic/Lymphatic: No symptoms reported Neurological/Psychological: No symptoms reported -: Yes All other systems reviewed and negative Physical Exam - Vital signs Vitals: Temp Pulse Resp BP Pulse Ox 97.7 F 76 22 H 127/60 H 98 09/10/18 08:15 09/10/18 08:15 09/10/18 08:15 09/10/18 08:15 09/10/18 08:15 Interpretation: Normal - Notes Notes: PHYSICAL EXAMINATION: GENERAL: Well-appearing, well-nourished and in no acute distress. HEAD: Atraumatic, normocephalic. EYES: Pupils equal round and reactive to light, extraocular movements intact, conjunctiva are normal. ENT: Nares patent, oropharynx clear without exudates. Moist mucous membranes. NECK: Normal range of motion, supple without lymphadenopathy LUNGS: Breath sounds clear to auscultation bilaterally and equal. No wheezes rales or rhonchi. HEART: Regular rate and rhythm without murmurs ABDOMEN: Soft, to palpation patient is somewhat tender in the midepigastric area only. Light pressure in the mid epigastric area does note some radiation of discomfort to the back. Patient is also belching. She has bowel sounds all 4 quads. Patient is not appearing at this point. She is a rather rotund abdomen is well. There is no peritoneal signs on physical examination. Patient also displays no flank tenderness to palpation or percussion. Female : deferred Musculoskeletal: Normal range of motion, no pitting or edema. No cyanosis. NEUROLOGICAL: Cranial nerves grossly intact. Normal speech, normal gait. Normal sensory, motor exams PSYCH: Normal mood, normal affect. SKIN: Warm, Dry, normal turgor, no rashes or lesions noted. Course - Re-evaluation Re-evalutation: 09/10/18 13:30 Patient improved substantially with the ranitidine. Her labs were normal and her urine only showed some oxalate crystals which were "too many to count". She does have a history of kidney stones this did not feel like that her. After receiving Phenergan and ranitidine she felt much better. Given that there is no other findings at this time and she feels better will send patient home on the ranitidine and Phenergan combination. As she has been encouraged to follow-up with FIELD TRAINER sooner so she is going to attempt to contact the health department to see if she can go to a [facility] down in [place] rather than here. Her ultrasound was also normal for 13-week 5-day IUP that is normal in all respects. - Vital Signs Vital signs: Temp Pulse Resp BP Pulse Ox 97.7 F 76 22 H 127/60 H 98 09/10/18 08:15 09/10/18 08:15 09/10/18 08:15 09/10/18 08:15 09/10/18 08:15 - Laboratory Result Diagrams: 09/10/18 08:54 09/10/18 08:54 Laboratory results interpreted by me: 09/10/18 09/10/18 09/10/18 08:54 08:54 09:15 WBC 11.6 H RDW 14.1 H Absolute Neutrophils 8.9 H Potassium 3.3 L Creatinine 0.46 L AST 11 L Beta HCG, Quant 29996.00 H Urine Ketones 20 H Urine Urobilinogen 2.0 H Ur Leukocyte Esterase SMALL H Discharge - Discharge Clinical Impression: GERD (gastroesophageal reflux disease) Qualifiers: Esophagitis presence: without esophagitis Qualified Code(s): K21.9 - Gastro- esophageal reflux disease without esophagitis Condition: Good Disposition: HOME, SELF-CARE Instructions: Abdominal Pain ([facility]), Antispasmodics ([facility]) Additional Instructions: Home and rest. This also means no sexual intercourse until seen by CALENDER MACHINE OPERATOR. Highly suggested to contact one as soon as possible and follow-up within. He can take the medication as prescribed and increase fluids get as much rest as possible. Should he have increasing pain discomfort return to ER for recheck. Please take the medication only as needed even though it is all safe in is 1 of those things that the last chemical use of better. This also goes for smoking please Move as much as possible Prescriptions: Promethazine HCl [Phenergan 25 mg Tablet] 25 mg PO Q4 PRN #20 tablet PRN Reason: Ranitidine HCl [Acid Buckle And Button Maker] 150 mg PO BID #30 tablet Forms: Smoking Cessation Education, Return to School Referrals: DIMA TABARES MD [Primary Care Provider] - Follow up as needed
[2018-09-10 13:59] VITALS: BP 104/49
== END 2018-09-10 13:59 | disposition home or self-care (01) ==
LOC: ER 08:09
DX: O99.611 Diseases of the digestive system complicating pregnancy, first trimester (principal); K21.9 Gastro-esophageal reflux disease without esophagitis; O26.891 Other specified pregnancy related conditions, first trimester; R10.9 Unspecified abdominal pain; M54.9 Dorsalgia, unspecified; R11.0 Nausea; R30.0 Dysuria; O99.331 Smoking (tobacco) complicating pregnancy, first trimester; Z3A.13 13 weeks gestation of pregnancy; J45.909 Unspecified asthma, uncomplicated; E11.9 Type 2 diabetes mellitus without complications
CPT/HCPCS: 99284; 96361; 96374; 96375; 36415; 84702; 83690; 85025; 80053; 81001; 76801; J2550; J7030; S0028

== ENCOUNTER 2019-01-21 17:58 | Outpatient (CLI) | payer MEDICARE, MEDICAID ==
[2019-01-21 18:34] LABS: APPEARANCE,URINE CLEAR; BILIRUBIN,URINE NEGATIVE (NEGATIVE); COLOR,URINE YELLOW; GLUCOSE, URINE NEGATIVE (NEGATIVE); KETONES,URINE NEGATIVE (NEGATIVE); LEUKOCYTE ESTERASE,URINE NEGATIVE (NEGATIVE); NITRITE,URINE NEGATIVE (NEGATIVE); PROTEIN,URINE NEGATIVE (NEGATIVE); URINE SPECIFIC GRAVITY 1.008; UROBILINOGEN,URINE NEGATIVE mg/dL (<2.0)
[2019-01-21 19:02] LABS: URINE AMPHETAMINES SCREEN NEGATIVE; URINE BARBITURATES SCREEN NEGATIVE; URINE BENZODIAZEPINES SCREEN NEGATIVE; URINE COCAINE SCREEN NEGATIVE; URINE METHADONE SCREEN NEGATIVE; URINE PHENCYCLIDINE SCREEN NEGATIVE
[2019-01-21 19:05] LABS: URINE MARIJUANA (THC) SCREEN UNCONFIRMED POSITIVE
== END 2019-01-21 19:36 | disposition home or self-care (01) ==
LOC: LC 17:58
PROVIDERS: ATTEND Obstetrics & Gynecology Gynecology
PROC: 4A1HXCZ Monitoring of Products of Conception, Cardiac Rate, External Approach (ICD-10-PCS; principal; 2019-01-21)
DX: O47.03 False labor before 37 completed weeks of gestation, third trimester (principal); Z3A.32 32 weeks gestation of pregnancy
CPT/HCPCS: 59025; 81001; 80307; G0480 ×2; 80349

== ENCOUNTER 2019-02-27 20:57 | Outpatient (CLI) | payer MEDICARE, MEDICAID ==
[2019-02-27 21:34] LABS: APPEARANCE,URINE SLIGHTLY-CLOUDY; BILIRUBIN,URINE NEGATIVE (NEGATIVE); COLOR,URINE YELLOW; GLUCOSE, URINE NEGATIVE (NEGATIVE); KETONES,URINE NEGATIVE (NEGATIVE); LEUKOCYTE ESTERASE,URINE NEGATIVE (NEGATIVE); NITRITE,URINE NEGATIVE (NEGATIVE); PROTEIN,URINE NEGATIVE (NEGATIVE); URINE SPECIFIC GRAVITY 1.016; UROBILINOGEN,URINE NEGATIVE mg/dL (<2.0)
[2019-02-27 21:52] LABS: URINE AMPHETAMINES SCREEN NEGATIVE; URINE BARBITURATES SCREEN NEGATIVE; URINE BENZODIAZEPINES SCREEN NEGATIVE; URINE COCAINE SCREEN NEGATIVE; URINE METHADONE SCREEN NEGATIVE; URINE PHENCYCLIDINE SCREEN NEGATIVE
[2019-02-27 21:56] LABS: URINE MARIJUANA (THC) SCREEN UNCONFIRMED POSITIVE
--- NOTE | 2019-02-27 22:54 | Non Stress Test Report ---
Non Stress Test Datetime Report Generated by CPN: 02/27/2019 22:54 DEMOGRAPHIC EGA NST: 38.0 INDICATION Indication for Study: Ordered by Provider; Other Indication for Study (NST) Other: Labor check MONITORING Monitor Explained: Monitor Explained; Test Explained; Patient Verbalized Understanding Time on Monitor: 02/27/2019 21:17 Time off Monitor: 02/27/2019 22:03 NST Duration: 46 NST INTERVENTIONS NST Interventions: PO Hydration Physician Notified NST: Dr. Abhinav BABY A Movement : Present Contraction Frequency : Occasional FHR Baseline : 125 Accelerations : 15X15 Decelerations : None Variability : Moderate 6-25bpm NST Review: Meets Criteria for Reactive NST NST Review and Verified By : Marlyn Dumont, RN NST Results: Reactive NST REPORT Report Trigger: Send Report
== END 2019-02-27 22:21 | disposition home or self-care (01) ==
LOC: LC 20:57
PROVIDERS: ATTEND Obstetrics & Gynecology
PROC: 4A1HXCZ Monitoring of Products of Conception, Cardiac Rate, External Approach (ICD-10-PCS; principal; 2019-02-27)
DX: O47.1 False labor at or after 37 completed weeks of gestation (principal); Z3A.38 38 weeks gestation of pregnancy
CPT/HCPCS: 59025; 80307; 81005; 84112

== ENCOUNTER 2019-03-02 10:03 | Outpatient (CLI) | payer MEDICARE, MEDICAID ==
--- NOTE | 2019-03-02 10:47 | Non Stress Test Report ---
Non Stress Test Datetime Report Generated by CPN: 03/02/2019 10:47 DEMOGRAPHIC EGA NST: 38.3 INDICATION Indication for Study: Other Indication for Study (NST) Other: abdominal MONITORING Monitor Explained: Monitor Explained; Test Explained; Patient Verbalized Understanding Time on Monitor: 03/02/2019 10:15 Time off Monitor: 03/02/2019 10:46 NST Duration: 31 NST INTERVENTIONS NST Interventions: PO Hydration; Reposition Patient Physician Notified NST: A Isbell CNM BABY A: [id number] BABY A Movement : Present Contraction Frequency : 0 FHR Baseline : 130 Accelerations : 15X15 Decelerations : None Variability : Moderate 6-25bpm NST Review: Meets Criteria for Reactive NST NST Review and Verified By : DOREEN Lam NST Results: Reactive NST REPORT Report Trigger: Send Report
[2019-03-02 10:50] LABS: APPEARANCE,URINE SLIGHTLY-CLOUDY; BILIRUBIN,URINE NEGATIVE (NEGATIVE); COLOR,URINE STRAW; GLUCOSE, URINE NEGATIVE (NEGATIVE); KETONES,URINE NEGATIVE (NEGATIVE); LEUKOCYTE ESTERASE,URINE NEGATIVE (NEGATIVE); NITRITE,URINE NEGATIVE (NEGATIVE); PROTEIN,URINE NEGATIVE (NEGATIVE); URINE SPECIFIC GRAVITY 1.011; UROBILINOGEN,URINE NEGATIVE mg/dL (<2.0)
[2019-03-02 11:25] LABS: URINE AMPHETAMINES SCREEN NEGATIVE; URINE BARBITURATES SCREEN NEGATIVE; URINE BENZODIAZEPINES SCREEN NEGATIVE; URINE COCAINE SCREEN NEGATIVE; URINE METHADONE SCREEN NEGATIVE; URINE PHENCYCLIDINE SCREEN NEGATIVE
[2019-03-02 11:39] LABS: URINE MARIJUANA (THC) SCREEN UNCONFIRMED POSITIVE
== END 2019-03-02 11:00 | disposition home or self-care (01) ==
LOC: LC 10:03
PROVIDERS: ATTEND Obstetrics & Gynecology
PROC: 4A1HXCZ Monitoring of Products of Conception, Cardiac Rate, External Approach (ICD-10-PCS; principal; 2019-03-02)
DX: O26.893 Other specified pregnancy related conditions, third trimester (principal); R10.9 Unspecified abdominal pain; Z3A.38 38 weeks gestation of pregnancy
CPT/HCPCS: 59025; 80307; 81005

== ENCOUNTER 2019-03-07 10:48 | Inpatient (IN) | payer MEDICARE, MEDICAID ==
[2019-03-07 11:31] LABS: APPEARANCE,URINE CLEAR; BILIRUBIN,URINE NEGATIVE (NEGATIVE); COLOR,URINE YELLOW; GLUCOSE, URINE NEGATIVE (NEGATIVE); KETONES,URINE NEGATIVE (NEGATIVE); LEUKOCYTE ESTERASE,URINE NEGATIVE (NEGATIVE); NITRITE,URINE NEGATIVE (NEGATIVE); PROTEIN,URINE NEGATIVE (NEGATIVE); URINE SPECIFIC GRAVITY 1.013; UROBILINOGEN,URINE NEGATIVE mg/dL (<2.0)
[2019-03-07] MEDS ORDERED: CEFAZOLIN SODIUM 1 GM in DEXTROSE 5%-WATER 50 ML IV PRN (11:50)
[2019-03-07 11:51] LABS: URINE AMPHETAMINES SCREEN NEGATIVE; URINE BARBITURATES SCREEN NEGATIVE; URINE BENZODIAZEPINES SCREEN NEGATIVE; URINE COCAINE SCREEN NEGATIVE; URINE METHADONE SCREEN NEGATIVE; URINE PHENCYCLIDINE SCREEN NEGATIVE
[2019-03-07] MEDS ORDERED: RINGERS SOLUTION,LACTATED 1,000 ML IV PRN (11:52)
[2019-03-07] MEDS ORDERED: RINGERS SOLUTION,LACTATED 1,000 ML IV ONE (11:52)
[2019-03-07 11:54] LABS: URINE MARIJUANA (THC) SCREEN UNCONFIRMED POSITIVE
--- NOTE | 2019-03-07 11:56 | Admission Physical ---
Datetime Report Generated by CPN: 03/07/2019 11:55 CURRENT ADMISSION Chief Complaint: Uterine Contractions Chief Complaint Other: Painful contractions increasing frequency to Q 2-3 minutes Admit Impression : Repeat Section Admit Plan: Admit to Unit; Initiate Section Protocol ALLERGIES Medication Allergies: Unknown Medication Allergies: bupropion HCl/VOMITING (01/21/2019); haloperidol/Distonic Reacti (01/21/2019); divalproex sodium/VOMITING (01/21/2019); topiramate/Speech problems (01/21/2019); olanzapine/Rash (01/21/2019) Latex: No Latex Allergies Food Allergies: None Environmental Allergies: None OBSTETRICAL HISTORY EDC: 03/13/2019 00:00 : 4 Para: 1 Term: 0 : 0 SAB: 0 IAB: 0 Ectopic: 0 Livin Cesareans: 0 VBACs: 0 Multiple Births: 0 Gestational Diabetes: Yes Rh Sensitization: No Incompetent Cervix: No JENNIFER: No Infertility: No ART Treatment: No Uterine Anomaly: No IUGR: No Hx Previous C/S: Yes Macrosomia: No Hx Loss/Stillborn: No PIH: No Hx : No Placenta Previa/Abruption: No Depression/PP Depression: Yes PTL/PROM: No Post Hemorrhage: No Current Procedures: Ultrasound Obstetrical History Comments: G1- 2014, Emergency 40 weeks G2- 2017, Miscarriage at 8 weeks G3- 2018, Miscariage at 10 weeks G4- Current SEE RECORDS Alcohol: No Marijuana : No Cocaine: No Other Illicit Drugs: No Cigarettes: Current Everyday Smoker. [id number] Cigarette Frequency: < 5 per day Advised to Stop: Yes MEDICAL HISTORY Diabetes: Yes Diabetes Type: Gestational Diabetes Blood Transfusion: No Pulmonary Disease (Asthma, TB): No Breast Disease: No Hypertension: No Operations Asst Surgery: No Heart Disease: No Hosp/Surgery: Yes Autoimmune Disorder: No Anesthetic Complications: No Kidney Disease: No Abnormal Pap Smear: No Neuro/Epilepsy: No Psychiatric Disorders: Yes Other Medical Diseases: No Hepatitis/Liver Disease: No Significant Family History: No Varicosities/Phlebitis: No Trauma/Violence : No Thyroid Dysfunction: No Medical History Comments: Right Ovary removed- 2013, Gallbladder removed 2008, suicidal ideation INFECTIOUS HISTORY Gonorrhea: No Genital Herpes: No Chlamydia: No Tuberculosis: No Syphilis: No Hepatitis: No HIV/AIDS Exposure: No Rash or Viral Illness: No HPV: No PHYSICAL EXAM General: Normal HEENT: Normal Neurologic: Normal Thyroid: Normal Heart: Normal Lungs: Normal Breast: Normal Back: Normal Abdomen: Normal Genitourinary Exam: Normal Extremities: Normal DTRs: Normal Pelvic Type: Adequate Vital Signs: Reviewed VAGINAL EXAM Dilatation: 1 Effacement: 50 Station: -2 Contraction Comments: Regular MEMBRANES Membranes: Intact FETUS A EGA: 39.1 Monitoring: External US FHR- Baseline: 130 Variability: Moderate 6-25bpm Accelerations: 15X15 Decelerations: None FHR Category: Category I Admit Comment: at 39.1 wks EGA w/ painful regular uterine contractions and hx of one prior CD. She also has complicated by A2GDM on Glyburide but not compliant with medications. also complicated by unwanted fertility and desires BTL with CD- she has signed paperwork at office. Depression/anxiety also complicate her : not on Meds currently. Tobacco and marijuana use -Admit to LDR -NPO and IVFs: LR at 125cc/hr -Labs ordered: pending -CEFM and TOco: regular ctx noted -Cervix /-2 (closed at office) -Discussed TOLAC vs Repeat CD. Desires Repeat CD and BTL -Abdominal prep -Ancef 2 gms pre-op OR -Risks, benefits and alternative reviewed with patient and in detail. Questions answered.Consent signed. -Will plan for Repeat CD and BTL PLANS FOR LABOR AND DELIVERY Labor and Delivery: Plan Pain Management: Spinal Feeding Preference: Breast Benefit of Breast Feed Discussed: Yes Circumcision: N/A INFORMED CONSENT Informed Consent Obtained: Section Delivery; Sterilization; Risks, Benefits and Alternatives Discussed Signature: with User ID: [email or web address] : with User ID: [email or web address]
[2019-03-07] MEDS ORDERED: CEFAZOLIN 1 GM/D5W RTU 2 GM/100 ML RTUPB IV ONE (12:09)
[2019-03-07] MEDS ORDERED: CITRIC ACID/SODIUM CITRATE ORAL SOLN 15 ML UDCUP ONE (12:10)
[2019-03-07 12:32] LABS: ABSOLUTE EOSINOPHILS # (AUTO) 0.1 10^3/uL (0.0-0.6); ABSOLUTE LYMPHOCYTES (AUTO) 2.6 10^3/uL (0.5-4.7); ABSOLUTE MONOCYTES (AUTO) 0.7 10^3/uL (0.1-1.4); ABSOLUTE NEUT (AUTO) 11.5 10^3/uL (1.7-8.2); BASOPHILS % (AUTO) 0.2 % (0-2); EOSINOPHILS % (AUTO) 0.6 % (0-6); HEMATOCRIT 35.3 % (36.0-47.0); HEMOGLOBIN 11.7 g/dL (12.0-15.5); LYMPHOCYTES % (AUTO) 17.6 % (13-45); MEAN CORPUSCULAR HEMOGLOBIN 28.1 pg (27.0-33.4); MEAN CORPUSCULAR HGB CONC 33.2 g/dL (32.0-36.0); MEAN CORPUSCULAR VOLUME 85 fl (80-97); MONOCYTES % (AUTO) 4.6 % (3-13); PLATELET COUNT 155 10^3/uL (150-450); RED BLOOD COUNT 4.18 10^6/uL (3.72-5.28); RED CELL DISTRIBUTION WIDTH 13.7 % (11.5-14.0); TOTAL CELLS COUNTED % (AUTO) 100 %; WHITE BLOOD COUNT 14.8 10^3/uL (4.0-10.5)
[2019-03-07] MEDS ORDERED: FAMOTIDINE INJ/PF 20 MG/2 ML SDV IV ONE (12:56)
[2019-03-07] MEDS ORDERED: KETOROLAC TROMETHAMINE INJ/PF 30 MG/1 ML SDV ONE (12:56)
[2019-03-07] MEDS ORDERED: OXYTOCIN 10 UNIT/ML VIAL ONE (12:56)
[2019-03-07] MEDS ORDERED: FENTANYL CITRATE INJ/PF 100 MCG/2 ML AMPUL ONE (12:56)
[2019-03-07] MEDS ORDERED: OXYTOCIN/NORMAL SALINE 20 UNIT/1,000 ML RTUINJ ONE (12:57)
[2019-03-07] MEDS ORDERED: EPHEDRINE SULFATE INJ 50 MG/1 ML AMPULE ONE (12:57)
[2019-03-07] MEDS ORDERED: ONDANSETRON HCL INJ/PF 4 MG/2 ML SDV ONE ×2 (12:57→12:58)
[2019-03-07] MEDS ORDERED: MIDAZOLAM 2 MG/2 ML INJ ONE (12:57)
[2019-03-07] MEDS ORDERED: DEXAMETHASONE SOD PHOSPHATE INJ 4 MG/1 ML VIAL ONE (12:58)
[2019-03-07] MEDS ORDERED: PHENYLEPHRINE HCL INJ/PF 10 MG/1 ML SDV ONE (12:59)
[2019-03-07] MEDS ORDERED: PROMETHAZINE HCL INJ 25 MG/1 ML VIAL IV PRN (14:48)
[2019-03-07] MEDS ORDERED: ACETAMINOPHEN 325 MG TABLET PO PRN (14:48)
[2019-03-07] MEDS ORDERED: MEASLES,MUMPS&RUBELLA VACC/PF 0.5 ML VIAL SUBCUT PRN (14:48)
[2019-03-07] MEDS ORDERED: HYDROMORPHONE HCL INJ/PF 2 MG/ML AMPULE IV PRN (14:48)
[2019-03-07] MEDS ORDERED: OXYCODONE-ACETAMINOPHEN 5-325 MG TABLET PO PRN (14:48)
[2019-03-07] MEDS ORDERED: DIPH/PERTUSS(ACELL)/TETANUS VAC/PF 0.5 ML SYR (>=10YO) IM PRN (14:48)
[2019-03-07] MEDS ORDERED: OXYTOCIN/NORMAL SALINE 20 UNIT/1,000 ML RTUINJ IV PRN (14:48)
[2019-03-07] MEDS ORDERED: SIMETHICONE 80 MG TAB.CHEW PO PRN (14:48)
[2019-03-07] MEDS ORDERED: MORPHINE SULFATE 10 MG/ML INJ ONE (15:39)
[2019-03-07] MEDS ORDERED: PROMETHAZINE HCL INJ 25 MG/1 ML VIAL ONE (15:40)
[2019-03-07] MEDS ORDERED: DIPHENHYDRAMINE HCL 50 MG/ML VIAL ONE (15:44)
--- NOTE | 2019-03-07 17:04 | Operative Report ---
Operative Report DATE OF SURGERY: 03/07/19 PREOPERATIVE DIAGNOSIS: 1. IUP at 39.1 wks EGA. 2. Active labor. 3. History CD x1. 4. Anxiety and depression. 5. A2GDM on PO hyperglycemics. 6. Obesity. 7. Maternal substance abuse -marijuana. 8. Tobacco use. 9. Unwanted fertility POSTOPERATIVE DIAGNOSIS: Same as pre-op with addition of Repeat CD, delilvered OPERATION: Repeat CD and left tubal ligation (right tube surgically absent) SURGEON: VERO JONES 1ST REGISTERED NURSE MATERNITY: SWATI CUMMINGS ANESTHESIA: Spinal TISSUE REMOVED OR ALTERED: Placenta COMPLICATIONS: None ESTIMATED BLOOD LOSS: 700cc INTRAOPERATIVE FINDINGS: Normal appearing uterus with right fallopian tube surgically absent. Left fallopian tube and ovary normal appearing. Right fallopian tube surgically absent. Heavily meconium stained fluid . Female with Apgars of 8/9 at one and five minutes respectfully. PROCEDURE: IV fluids: 2,000 ml Urinary output: 200 cc Findings: Normal-appearing uterus left fallopian tube and ovary. Right ovary and fallopian tube is surgically absent. Viable female with Apgars of 8 and 9, at 1 and 5 minutes respectively. Weight of 2,830 g, 6 pounds and 4 ounces Moderate amount scar tissue between anterior abdominal wall, rectus fascia and omentum. Position: To recovery room in stable condition Description of procedure: The patient was taken to the operating room and spinal anesthesia was administered and found to be adequate. She was then placed on the OR table in the supine position with a slight leftward tilt. Patient was prepped and draped in usual sterile fashion. Ancef 2 gms was given IV prior to the procedure for infection prophylaxis. Timeout was taken. A Pfannenstiel skin incision was then made approximately 3 cm above the pubic symphysis at the level of the previous scar and carried down to level the rectus fascia. Any bleeding was controlled along the way with Bovie electrocautery. The rectus fascia was then nicked in the midline with a scalpel and the fascial incision was extended laterally with use of curved Mix scissors. The rectus fascia was then grasped with 2 Kocker clamps elevated and the underlying rectus muscle was dissected off both bluntly and sharply. Scar tissue noted as above. Any bleeding controlled with cautery. The rectus muscles were then split in the midline and the peritoneum was entered. Any bleeding was controlled with the Bovie. The peritoneal incision was then extended by manually stretching the peritoneum and use of the Bovie electrocautery cephalad. The bladder blade was positioned the uterus was assessed and noted to be toward the left. The bladder was noted to be out of harm's way. A scalpel was then used in the lower uterine for the hysterotomy, slowly until amniotomy was obtained a large amount of heavily meconium stained fluid was noted. The uterine incision was then manually stretched. The was noted to be in vertex postion -deep in the pelvis. Using a hand deep in pelvis, the head was elevated and brought to the hysterotomy incision. The head then delivered with minmal difficulty. The shoulders and the rest of the body followed immediately. The cord was cut clamped and the infant was handed off to the nurse awaiting. Oral/nasal suctioning was done prior to cord clamping. The placenta was manually delivered. Using a lap gauze the uterus was cleared of all clots and debris. The uterus was then exteriorized and a bladder blade was repositioned. The uterine incision was then closed with 0 Chromic suture in a running locked fashion. A second layer of the same suture was used in a running locked imbricated fashion. The uterine incision was inspected and noted to be hemostatic. The posterior aspect of the uterus was then inspected and anatomy was seen as above. The left fallopian tube was identified and traced to its fimbriated end. Two tara clamps were used to elevate the left fallopian tube. An avascular area was noted in the mesosalpinx and in this area with the Bovie electrocautery was used to open a 1 cm area within the mesosalpinx. Using plain gut suture on a real the left fallopian tube was doubly tied, proximally and distally from the Tara clamps. Metzenbaum scissors were then used to remove the segment of tube between the free ties. He was inspected and noted to be nicely hemostatic. Attention was then turned to the right fallopian tube. The right fallopian tube was not found and appeared to be surgically absent at the right ovary. The uterus was returned to its normal anatomic position within the abdominal cavity. Warm saline irrigation was used to clear all clots and debris from the abdomen. The uterine incision was inspected once more and noted to remain hemostatic. The bladder blade was removed and the peritoneum was closed with 2-0 chromic in a running fashion. The rectus muscles were then reapproximated and the rectus fascia was closed with a #0 PDS in a running fashion. The subcutaneous tissue was then inspected and any bleeding was controlled with Bovie electrocautery. The subcutaneous tissue was then closed with 2-0 Plain Gut suture in a running fashion. The skin was then closed with 4-0 Monocryl in a running subcuticular fashion. The skin incision was then clean dried and Dermabond was applied over the skin incision. All instrument sponge and needle counts were correct x3 for the procedure the patient tolerated the procedure well. She will proceed to recovery room in stable condition
--- NOTE | 2019-03-07 17:32 | Delivery Summary ---
Del Sum A-C Datetime Report Generated by CPN: 03/07/2019 17:31 DELIVERY PERSONNEL DELIVERY PERSONNEL: [id number] Delivery Doctor:: Marisa Hernandez Anesthesiologist:: Vicenta Magdaleno MD VISUAL COORDINATOR:: Finn Mcgowan CRNA Tire Balancer:: Rosanne Blankenship, RN Grommet Man/SURGICAL NURSE: Lauren Gamez, GLOVE SEWER Grommet Man/SURGICAL NURSE: [facility] Additional Personnel: : Asmita Curry RN MATERNAL INFORMATION Delivery Anesthesia: Spinal Medications After Delivery: Pitocin Drip 20 Units/1000ml NSS Meds After Delivery Comment: see anesthesia record Estimated Blood Loss (ml): 600 Delivery QBL Comment: 799 surgical QBL Maternal Complications: None Provider Comments: Findings: Moderate amount of scar tissue anterior abdominal wall between rectus fascia and muscle. The omentum was adherent to anterior abdominal wall. Right fallopian tube is surgically absent along with right ovary. Left ovary and tube appearednormal. Heavily stained meconium fluid noted. Female with of 8/9 at one and five minutes respectively See operative report for further detail LABOR SUMMARY EDC: 03/13/2019 00:00 No. Babies in Womb: 1 Attempted: No LABOR INFORMATION Reason for Induction: Not Applicable Onset of Labor: 03/07/2019 09:00 Oxytocin: N/A Group B Beta Strep: positive Antibiotics # of Doses: 1 Antibiotics Time of Last Dose: 1304 Name of Antibiotic Given: Cefazolin Steroids Given: None Reason Steroids Not Administered: Not Applicable MEMBRANES Membranes Rupture Method: Artificial Rupture of Membranes: 03/07/2019 13:49 Length of Rupture (hr): 0.03 Amniotic Fluid Color: Moderate Meconium Amniotic Fluid Amount: Moderate Amniotic Fluid Odor: Normal STAGES OF LABOR Stage 3 hr: 0 Stage 3 min: 1 Total Time in Labor hr: 4 Total Time in Labor min: 52 VAGINAL DELIVERY Episiotomy: None Laceration #1: None Laceration Extension #1: N/A CSECTION DELIVERY Primary Indication: Repeat Elective CSection Urgency: Non-Scheduled CSection Incidence: Repeat Labor: Labor Elective: Elective CSection Incision: Lower Uterine Transverse Sterilization Procedure: [place] Other Sterilization Procedure: Tubal Ligation to L side Uterine Closure: Double-layer closure BABY A INFORMATION Delivery Date/Time: 03/07/2019 13:51 Method of Delivery: Born in Route : No : N/A Forceps: N/A Vacuum Extraction: N/A Shoulder Dystocia : No PRESENTATION/POSITION BABY A Presentation: Cephalic Cephalic Presentation: Vertex Breech Presentation: N/A PLACENTA INFORMATION BABY A Placenta Delivery Time : 03/07/2019 13:52 Placenta Method of Delivery: Manual Removal Placenta Status: Delivered SCORES BABY A Heart Rate 1 min: >100 bpm Resp Effort 1 min: Good Cry Reflex Irritability 1 min: Cough or Sneeze or Pulls Away Muscle Tone 1 min: Some Flexion of Extremities Color 1 min: Body [place], Extremities Blue Resuscitation Effort 1 min: Tactile Stimulation SCORE 1 MIN: 8 Heart Rate 5 min: >100 bpm Resp Effort 5 min: Good Cry Reflex Irritability 5 min: Cough or Sneeze or Pulls Away Muscle Tone 5 min: Active Motion Color 5 min: Body [place], Extremities Blue Resuscitation Effort 5 min: N/A SCORE 5 MIN: 9 INFORMATION BABY A Gestational Age at Delivery: 39.1 Gestational Status: Full Term- 39- 40.6 Weeks Infant Outcome : Liveborn Condition : Stable Infant Sex: Female IDENTIFICATION BABY A Verification Date/Time: 03/07/2019 14:10 ID Band Number: [id number] Mother's Name Verified: Yes RN Verifying Infant: V Monk RN Additional Verifying Personnel: S Patricio RN WEIGHT/LENGTH BABY A Birthweight (gm): 2830 Infant Weight (lb): 6 Infant Weight (oz): 4 Infant Length (in): 20.50 Length (cm): 52.07 CORD INFORMATION BABY A No. Cord Vessels: 3 Nuchal Cord : N/A Suction: Mouth; Nose ASSESSMENT BABY A Complications: None Physical Findings at Delivery: Within Normal Limits Infant Respirations: Appears Normal Skin to Skin: No BABY B INFORMATION : N/A SIGNATURES Signature: with User ID: [email or web address] : with User ID: [email or web address]
[2019-03-07] MEDS: DOCUSATE SODIUM 100 MG CAPSULE PO SCH (17:50)
[2019-03-07] MEDS ORDERED: HYDROXYZINE PAMOATE 50 MG CAPSULE PO PRN (20:33)
[2019-03-07] MEDS: OXYCODONE-ACETAMINOPHEN 5-325 MG TABLET PO PRN (20:52)
[2019-03-08] MEDS: OXYCODONE-ACETAMINOPHEN 5-325 MG TABLET PO PRN ×4 (04:11→21:46)
[2019-03-08 05:52] LABS: HEMOGLOBIN 10.1 g/dL (12.0-15.5); MEAN CORPUSCULAR HEMOGLOBIN 28.4 pg (27.0-33.4); MEAN CORPUSCULAR HGB CONC 33.6 g/dL (32.0-36.0); MEAN CORPUSCULAR VOLUME 85 fl (80-97); PLATELET COUNT 170 10^3/uL (150-450); RED BLOOD COUNT 3.54 10^6/uL (3.72-5.28); RED CELL DISTRIBUTION WIDTH 13.8 % (11.5-14.0); WHITE BLOOD COUNT 22.5 10^3/uL (4.0-10.5)
[2019-03-08] MEDS ORDERED: IBUPROFEN 800 MG TABLET PO PRN (06:15)
[2019-03-08] MEDS: DOCUSATE SODIUM 100 MG CAPSULE PO SCH ×2 (09:16→17:29)
[2019-03-08] MEDS: PRENATAL VITAMIN W DHA CAPSULE PO SCH (09:16)
[2019-03-08] MEDS ORDERED: PRENATAL PO SCH (10:00)
[2019-03-08] MEDS ORDERED: IRON FUM PO SCH (10:00)
[2019-03-08] MEDS ORDERED: DHA PO SCH (10:00)
[2019-03-08] MEDS ORDERED: [UNRECOGNIZED DRUG - OTHER] PO SCH (10:00)
[2019-03-08] MEDS ORDERED: FOLIC PO SCH (10:00)
--- NOTE | 2019-03-08 10:00 | PDOC PROGRESS REPORT ---
Subjective-OB Progress Note for:: 03/08/19 - POD#1, doing well, up voiding, bottlefeeding, A+, Rubella Immune,, s/p Rpt Physical Exam (OB) Vital Signs: Temp Pulse Resp BP Pulse Ox 97.3 F 56 L 16 110/52 L 99 03/08/19 07:38 03/08/19 07:38 03/08/19 07:38 03/08/19 07:38 03/08/19 07:38 Intake & Output 03/07/19 03/08/19 03/09/19 06:59 06:59 06:59 Intake Total 260 Output Total 430 Balance -170 Weight 76.7 kg - General General Appearance: Appears well, Alert In distress: None - PIH/Pre-Eclampsia Clonus: Negative Headache: Absent Epigastric Pain: No Visual Changes: No - Dressing Removed: No Incision: Open Closure Type: Surgical Glue Note: 2x3 cm ecchymosis area noted just above incision - Bilateral Tubal Ligation Dressing Removed: No - sutures/dermabond Site: Dressing, Well Approximated - Lochia Lochia Amount: Small 10-25 ml Lochia Color: Rubra/Red - Abdomen Description: Tender, Soft Hernia Present: No Fundal Description: Firm, Midline Fundal Height: u/3 - u/4 - Respiratory Respiratory Status: No respiratory distress Breath sounds: Clear - Cardiovascular Rhythm: Regular Heart Sounds: Normal auscultation - Abdominal Inspection: Normal Distension: No distension Tenderness: Nontender - Genitourinary Genitourinary Note: voiding - Extremities Upper extremity: Normal inspection Lower extremities: Normal inspection - Neurological Cognition: Normal Orientation: AAOx4 - Psychological Associated symptoms: Normal affect, Normal mood - Skin Skin Temperature: Warm Skin Moisture: Dry Objective-Diagnostic Laboratory: 03/08/19 05:28 03/07/19 03/07/19 03/07/19 11:15 12:20 12:20 WBC 14.8 H RBC 4.18 Hgb 11.7 L Hct 35.3 L MCV 85 MCH 28.1 MCHC 33.2 RDW 13.7 Plt Count 155 Seg Neutrophils % 77.0 Urine Color YELLOW Urine Appearance CLEAR Urine pH 7.0 Ur Specific [place] 1.013 Urine Protein NEGATIVE Urine Glucose (UA) NEGATIVE Urine Ketones NEGATIVE Urine Blood NEGATIVE Urine Nitrite NEGATIVE Ur Leukocyte Esterase NEGATIVE Blood Type A POSITIVE Antibody Screen NEGATIVE 03/08/19 05:28 WBC 22.5 H RBC 3.54 L Hgb 10.1 L Hct 30.0 L MCV 85 MCH 28.4 MCHC 33.6 RDW 13.8 Plt Count 170 Seg Neutrophils % Urine Color Urine Appearance Urine pH Ur Specific [place] Urine Protein Urine Glucose (UA) Urine Ketones Urine Blood Urine Nitrite Ur Leukocyte Esterase Blood Type Antibody Screen Assessment and Plan(PN) - Assessment and Plan (1) Bipolar 1 disorder Is this a current diagnosis for this admission?: Yes (2) delivery delivered Is this a current diagnosis for this admission?: Yes (3) GERD (gastroesophageal reflux disease) Qualifiers: Esophagitis presence: without esophagitis Qualified Code(s): K21.9 - Gastro-esophageal reflux disease without esophagitis Is this a current diagnosis for this admission?: Yes (4) Intrauterine growth restriction (IUGR) affecting care of mother Qualifiers: Fetus number: single or unspecified fetus Is this a current diagnosis for this admission?: Yes (5) Obesity Qualifiers: Obesity type: due to excess calories Is this a current diagnosis for this admission?: Yes (6) Qualifiers: Weeks of gestation: 39 weeks Qualified Code(s): Z3A.39 - 39 weeks gestation of Is this a current diagnosis for this admission?: Yes - Time Spent with Patient Time with patient: Less than 15 minutes Medications reviewed and adjusted accordingly: Yes - Disposition Anticipated Discharge: Home Within: within 48 hours
--- NOTE | 2019-03-08 18:27 | RADIOLOGY REPORT (SQ) ---
EXAM DESCRIPTION: HIP LEFT AP/LATERAL COMPLETED DATE/TIME: 03/08/2019 6:07 pm REASON FOR STUDY: Pt complains of left hip pain, after falling O00.01 ABDOMINAL WITH INTR AUTERINE COMPARISON: None. NUMBER OF VIEWS: Two views. TECHNIQUE: AP pelvis and additional frog-leg view of the left hip. LIMITATIONS: None. FINDINGS: MINERALIZATION: Normal. LEFT HIP: No fracture or dislocation. No worrisome bone lesions. RIGHT HIP: No fracture or dislocation. No worrisome bone lesions. PUBIS AND ISCHIUM: No fracture. PELVIS: No fracture. SACRUM: No fracture or dislocation. No worrisome bone lesions. LOWER LUMBAR SPINE: No fracture or dislocation. No worrisome bone lesions. No significant disc disea se. SOFT TISSUES: No findings. OTHER: Surgical clips overlie pelvis. IMPRESSION: NEGATIVE STUDY OF THE LEFT HIP AND PELVIS. NO RADIOGRAPHIC EVIDENCE OF ACUTE INJURY. TECHNICAL DOCUMENTATION: JOB ID: [id number] [employer]- All Rights Reserved Reading location - IP/workstation name: [email or web address]
[2019-03-09] MEDS: OXYCODONE-ACETAMINOPHEN 5-325 MG TABLET PO PRN ×3 (08:14→22:58)
[2019-03-09] MEDS: DOCUSATE SODIUM 100 MG CAPSULE PO SCH ×2 (09:52→17:21)
[2019-03-09] MEDS: PRENATAL VITAMIN W DHA CAPSULE PO SCH (09:52)
[2019-03-09] MEDS ORDERED: LORAZEPAM 0.5 MG TABLET PO PRN (10:54)
[2019-03-10] MEDS ORDERED: INFLUENZA QUAD (6MOS+) 2019-20 VAC 0.5 ML SYR IM ONE (08:00)
[2019-03-10] MEDS: PRENATAL VITAMIN W DHA CAPSULE PO SCH (09:13)
[2019-03-10] MEDS: DOCUSATE SODIUM 100 MG CAPSULE PO SCH (09:13)
[2019-03-10] MEDS: OXYCODONE-ACETAMINOPHEN 5-325 MG TABLET PO PRN (09:13)
[2019-03-10 10:28] LABS: HEMATOCRIT 27.4 % (36.0-47.0); HEMOGLOBIN 9.1 g/dL (12.0-15.5); MEAN CORPUSCULAR HEMOGLOBIN 28.4 pg (27.0-33.4); MEAN CORPUSCULAR HGB CONC 33.2 g/dL (32.0-36.0); MEAN CORPUSCULAR VOLUME 86 fl (80-97); PLATELET COUNT 183 10^3/uL (150-450); RED CELL DISTRIBUTION WIDTH 13.7 % (11.5-14.0); WHITE BLOOD COUNT 10.6 10^3/uL (4.0-10.5)
[2019-03-10 13:09] VITALS: BP 125/64
--- NOTE | 2019-03-10 13:47 | PDOC DISCHARGE SUMMARY ---
Impression - Admit/DC Date/PCP Admission Date/Primary Care Provider: 03/07/19 11:44 VERO JONES MD Discharge Date: 03/10/19 - Discharge Diagnosis (1) Acute blood loss anemia Is this a current diagnosis for this admission?: Yes (2) Anxiety Is this a current diagnosis for this admission?: Yes (3) delivery delivered Is this a current diagnosis for this admission?: Yes (4) Depression affecting Is this a current diagnosis for this admission?: Yes (5) Drug use affecting Is this a current diagnosis for this admission?: Yes (6) GDM, class A2 Is this a current diagnosis for this admission?: Yes (7) Smoker Is this a current diagnosis for this admission?: Yes (8) Tubal ligation status Is this a current diagnosis for this admission?: Yes - Additional Information Resuscitation Status: Full Code Discharge Diet: As Tolerated, Regular Discharge Activity: Activity As Tolerated, Balance Activity w/Rest, No Lifting Over 10 Pounds, Pelvic Rest, No tub bath, Walk Frequently Referrals: VERO JONES MD [Primary Care Provider] - Prescriptions: Oxycodone HCl/Acetaminophen [Percocet 5-325 mg Tablet] 2 tab PO Q4HP PRN #20 tablet PRN Reason: For Pain Scale 3-5 Ibuprofen [Motrin 800 mg Tablet] 800 mg PO Q8HP PRN #30 tablet PRN Reason: Abdominal Cramping Docusate Sodium [Colace 100 mg Capsule] 100 mg PO BID #60 capsule Ferrous Sulfate [Feosol 325 mg Tablet] 325 mg PO BID #60 tablet Home Medications: 95/Iron Fum/Folic/Dha [ + Dha Combo Pack] 1 cap PO DAILY 01/21/19 Docusate Sodium [Colace 100 mg Capsule] 100 mg PO BID #60 capsule 03/10/19 Ferrous Sulfate [Feosol 325 mg Tablet] 325 mg PO BID #60 tablet 03/10/19 Ibuprofen [Motrin 800 mg Tablet] 800 mg PO Q8HP PRN #30 tablet 03/10/19 Oxycodone HCl/Acetaminophen [Percocet 5-325 mg Tablet] 2 tab PO Q4HP PRN #20 tablet 03/10/19 Results Laboratory Results: WBC 10.6 10^3/uL (4.0-10.5) H 03/10/19 10:09 RBC 3.20 10^6/uL (3.72-5.28) L 03/10/19 10:09 Hgb 9.1 g/dL (12.0-15.5) L 03/10/19 10:09 Hct 27.4 % (36.0-47.0) L 03/10/19 10:09 MCV 86 fl (80-97) 03/10/19 10:09 MCH 28.4 pg (27.0-33.4) 03/10/19 10:09 MCHC 33.2 g/dL (32.0-36.0) 03/10/19 10:09 RDW 13.7 % (11.5-14.0) 03/10/19 10:09 Plt Count 183 10^3/uL (150-450) 03/10/19 10:09 Lymph % (Auto) 17.6 % (13-45) 03/07/19 12:20 [place] % (Auto) 4.6 % (3-13) 03/07/19 12:20 Eos % (Auto) 0.6 % (0-6) 03/07/19 12:20 Baso % (Auto) 0.2 % (0-2) 03/07/19 12:20 Absolute Neuts (auto) 11.5 10^3/uL (1.7-8.2) H 03/07/19 12:20 Absolute Lymphs (auto) 2.6 10^3/uL (0.5-4.7) 03/07/19 12:20 Absolute Monos (auto) 0.7 10^3/uL (0.1-1.4) 03/07/19 12:20 Absolute Eos (auto) 0.1 10^3/uL (0.0-0.6) 03/07/19 12:20 Absolute Basos (auto) 0.0 10^3/uL (0.0-0.2) 03/07/19 12:20 Seg Neutrophils % 77.0 % (42-78) 03/07/19 12:20 POC Glucose 78 mg/dL (70-110) 03/07/19 12:34 Urine Color YELLOW 03/07/19 11:15 Urine Appearance CLEAR 03/07/19 11:15 Urine pH 7.0 (5.0-9.0) 03/07/19 11:15 Ur Specific [place] 1.013 03/07/19 11:15 Urine Protein NEGATIVE mg/dL (NEGATIVE) 03/07/19 11:15 Urine Glucose (UA) NEGATIVE mg/dL (NEGATIVE) 03/07/19 11:15 Urine Ketones NEGATIVE mg/dL (NEGATIVE) 03/07/19 11:15 Urine Blood NEGATIVE (NEGATIVE) 03/07/19 11:15 Urine Nitrite NEGATIVE (NEGATIVE) 03/07/19 11:15 Urine Bilirubin NEGATIVE (NEGATIVE) 03/07/19 11:15 Urine Urobilinogen NEGATIVE mg/dL (<2.0) 03/07/19 11:15 Ur Leukocyte Esterase NEGATIVE (NEGATIVE) 03/07/19 11:15 Urine Ascorbic Acid NEGATIVE (NEGATIVE) 03/07/19 11:15 Urine Opiates Screen NEGATIVE 03/07/19 11:15 Urine Methadone Screen NEGATIVE 03/07/19 11:15 Ur Barbiturates Screen NEGATIVE 03/07/19 11:15 Ur Phencyclidine Scrn NEGATIVE 03/07/19 11:15 Ur Amphetamines Screen NEGATIVE 03/07/19 11:15 U Benzodiazepines Scrn NEGATIVE 03/07/19 11:15 Urine Cocaine Screen NEGATIVE 03/07/19 11:15 U Marijuana (THC) Screen UNCONFIRMED POSITIVE 03/07/19 11:15 RPR NONREACTIVE (NONREACTIVE) 03/07/19 12:20 Blood Type A POSITIVE 03/07/19 12:20 Antibody Screen NEGATIVE 03/07/19 12:20 Impressions: Hip X-Ray 03/08/19 00:00 IMPRESSION: NEGATIVE STUDY OF THE LEFT HIP AND PELVIS. NO RADIOGRAPHIC EVIDENCE OF ACUTE INJURY.
== END 2019-03-10 15:50 | disposition home or self-care (01) | DRG 784 ==
LOC: LC 10:48 → LR 11:44 → 2S 17:39
PROVIDERS: ADMIT Obstetrics & Gynecology; ATTEND Obstetrics & Gynecology
PROC: 10D00Z1 Extraction of Products of Conception, Low, Open Approach (ICD-10-PCS; principal; 2019-03-07)
PROC: 0UB60ZZ Excision of Left Fallopian Tube, Open Approach (ICD-10-PCS; 2019-03-07)
PROC: 3E0234Z Introduction of Serum, Toxoid and Vaccine into Muscle, Percutaneous Approach (ICD-10-PCS; 2019-03-07)
DX: O34.211 Maternal care for low transverse scar from previous cesarean delivery (principal); Z30.2 Encounter for sterilization; D62 Acute posthemorrhagic anemia; O99.323 Drug use complicating pregnancy, third trimester; O90.81 Anemia of the puerperium; O99.344 Other mental disorders complicating childbirth; F41.9 Anxiety disorder, unspecified; O99.334 Smoking (tobacco) complicating childbirth; F17.210 Nicotine dependence, cigarettes, uncomplicated; O24.425 Gestational diabetes mellitus in childbirth, controlled by oral hypoglycemic drugs; F32.9 Major depressive disorder, single episode, unspecified; O99.214 Obesity complicating childbirth; F12.90 Cannabis use, unspecified, uncomplicated; O99.613 Diseases of the digestive system complicating pregnancy, third trimester; K21.9 Gastro-esophageal reflux disease without esophagitis; O36.5930 Maternal care for other known or suspected poor fetal growth, third trimester, not applicable or unspecified; E66.09 Other obesity due to excess calories; O77.0 Labor and delivery complicated by meconium in amniotic fluid; O99.824 Streptococcus B carrier state complicating childbirth; Z23 Encounter for immunization; Z79.899 Other long term (current) drug therapy; Z90.79 Acquired absence of other genital organ(s); Z88.6 Allergy status to analgesic agent; Z88.8 Allergy status to other drugs, medicaments and biological substances; Z3A.39 39 weeks gestation of pregnancy; Z91.14 Patient's other noncompliance with medication regimen; Z37.0 Single live birth
CPT/HCPCS: 01961; 36415; 80307; 80349; 81005; 82962; 85025; 85027; 86592; 86850; 86900; 86901; 88302; 88307; 90686; 94799; G0480; J0690; J1100; J1170; J1200; J1885; J2250; J2270; J2370; J2405; J2550; J2590; J3010; J3490; S0028

== ENCOUNTER 2019-11-04 09:55 | Emergency (ER) | payer MEDICARE, MEDICAID ==
--- NOTE | 2019-11-04 10:40 | ER Document Report ---
ED Medical Screen (RME) - General Chief Complaint: Lower Abdominal Pain Stated Complaint: LOWER ABDOMINAL PAIN Time Seen by Provider: 11/04/19 10:38 Primary Care Provider: VERO JONES MD [Primary Care Provider] - Follow up as needed Mode of Arrival: Ambulatory Information source: Patient Notes: 24-year-old female presents to ED for complaint of severe left pelvic/lower abdominal pain. She states she has had no menstrual cycle in 2 months. She states she has had a bilateral tubal ligation. She states this morning there was a popping noise and then the pain was much worse. Patient is alert oriented respirations regular and unlabored speaking in full sentences. I have greeted and performed a rapid initial assessment of this patient. A comprehensive ED assessment and evaluation of the patient, analysis of test results and completion of medical decision making process will be conducted by an additional ED providers. TRAVEL OUTSIDE OF THE [place] IN LAST 30 DAYS: No - Related Data Allergies/Adverse Reactions: bupropion HCl [From Wellbutrin] Allergy (Verified 01/21/19 19:50) VOMITING divalproex sodium [From Depakote] Allergy (Verified 01/21/19 19:50) VOMITING haloperidol [From Haldol] Allergy (Verified 01/21/19 19:50) Distonic Reaction olanzapine [From Zyprexa] Allergy (Verified 01/21/19 19:50) Rash topiramate [From Topamax] Allergy (Verified 01/21/19 19:50) Speech problems, drooling Past Medical History - Social History Family history: Reviewed & Not Pertinent Pulmonary Medical History: Reports: Hx Asthma Endocrine Medical History: Reports: Hx Diabetes Mellitus Type 2 Renal/ Medical History: Reports: Hx Kidney Stones, Hx Ovarian Cysts. Denies: Hx Peritoneal Dialysis Psychiatric Medical History: Reports: Hx Anxiety, Hx Bipolar Disorder, Hx Depression, Hx Personality Disorder, Hx Post Traumatic Stress Disorder Past Surgical History: Reports: Hx Section - 04/24/15, Hx Cholecystectomy, Hx Gynecologic Surgery - right ovary removed 09/03/13 - Immunizations Immunizations up to date: Yes Hx Diphtheria, Pertussis, Tetanus Vaccination: Yes - unknown Physical Exam - Vital signs Vitals: Temp Pulse Resp BP Pulse Ox 98.0 F 56 L 18 132/57 H 98 11/04/19 10:01 11/04/19 10:11/04/19 10:11/04/19 10:01 11/04/19 10:01 Course - Vital Signs Vital signs: Temp Pulse Resp BP Pulse Ox 98.0 F 56 L 18 132/57 H 98 11/04/19 10:01 11/04/19 10:01 11/04/19 10:01 11/04/19 10:01 11/04/19 10:01 Doctor's Discharge - Discharge Referrals: VERO JONES MD [Primary Care Provider] - Follow up as needed
[2019-11-04 11:34] LABS: APPEARANCE,URINE CLEAR; BILIRUBIN,URINE NEGATIVE (NEGATIVE); COLOR,URINE YELLOW; GLUCOSE, URINE NEGATIVE (NEGATIVE); KETONES,URINE NEGATIVE (NEGATIVE); LEUKOCYTE ESTERASE,URINE NEGATIVE (NEGATIVE); NITRITE,URINE NEGATIVE (NEGATIVE); PROTEIN,URINE NEGATIVE (NEGATIVE); URINE SPECIFIC GRAVITY 1.014; UROBILINOGEN,URINE NEGATIVE mg/dL (<2.0)
[2019-11-04 11:35] LABS: ABSOLUTE EOSINOPHILS # (AUTO) 0.2 10^3/uL (0.0-0.6); ABSOLUTE LYMPHOCYTES (AUTO) 2.8 10^3/uL (0.5-4.7); ABSOLUTE MONOCYTES (AUTO) 0.4 10^3/uL (0.1-1.4); ABSOLUTE NEUT (AUTO) 3.5 10^3/uL (1.7-8.2); BASOPHILS % (AUTO) 0.5 % (0-2); EOSINOPHILS % (AUTO) 2.9 % (0-6); HEMATOCRIT 38.3 % (36.0-47.0); HEMOGLOBIN 12.8 g/dL (12.0-15.5); LYMPHOCYTES % (AUTO) 40.5 % (13-45); MEAN CORPUSCULAR HEMOGLOBIN 28.4 pg (27.0-33.4); MEAN CORPUSCULAR HGB CONC 33.5 g/dL (32.0-36.0); MEAN CORPUSCULAR VOLUME 85 fl (80-97); MONOCYTES % (AUTO) 5.7 % (3-13); PLATELET COUNT 230 10^3/uL (150-450); RED BLOOD COUNT 4.53 10^6/uL (3.72-5.28); RED CELL DISTRIBUTION WIDTH 16.1 % (11.5-14.0); SEGMENTED NEUTROPHILS % (AUTO) 50.4 % (42-78); TOTAL CELLS COUNTED % (AUTO) 100 %; WHITE BLOOD COUNT 6.9 10^3/uL (4.0-10.5)
[2019-11-04 11:58] LABS: ALBUMIN 4.1 g/dL (3.5-5.0); ALKALINE PHOSPHATASE 60 U/L (38-126); ANION GAP 6 (5-19); ASPARTATE AMINO TRANSFERASE 14 U/L (14-36); BILIRUBIN,TOTAL 0.4 mg/dL (0.2-1.3); BLOOD UREA NITROGEN 13 mg/dL (7-20); CALCIUM 9.2 mg/dL (8.4-10.2); CARBON DIOXIDE 23 mmol/L (22-30); CHLORIDE 110 mmol/L (98-107); GLUCOSE 91 mg/dL (75-110); POTASSIUM 4.1 mmol/L (3.6-5.0); TOTAL PROTEIN 6.9 g/dL (6.3-8.2)
--- NOTE | 2019-11-04 12:13 | RADIOLOGY REPORT (SQ) ---
EXAM DESCRIPTION: U/S NON OB PEL TV W/DOPPLER IMAGES COMPLETED DATE/TIME: 11/04/2019 11:53 am REASON FOR STUDY: Severe left pelvic pain no cycle in 2 months COMPARISON: 04/04/2017. TECHNIQUE: Dynamic and static grayscale images acquired of the pelvis via transvaginal approach and recorded on PACS. Additional selected color Doppler and spectral images recorded. LIMITATIONS: None. FINDINGS: UTERUS: Contour normal. No mass. ENDOMETRIAL STRIPE: No focal or generalized thickening. No masses. CERVIX: No nabothian cysts. RIGHT OVARY AND DOPPLER: Surgically absent. LEFT OVARY AND DOPPLER: Normal size. No worrisome masses. Normal arterial vascular flow without evide nce for torsion. FREE FLUID: None noted. OTHER: No other significant finding. MEASUREMENTS: UTERUS: 4.4 x 4.6 x 8.5 cm. ENDOMETRIAL STRIPE: 10.4 mm. RIGHT OVARY: Not applicable. LEFT OVARY: 2.1 x 2.3 x 3.2 cm. IMPRESSION: NORMAL TRANSVAGINAL PELVIC ULTRASOUND. THE RIGHT OVARY IS SURGICALLY ABSENT. THE LEFT OVARY IS UNREMARKABLE. TECHNICAL DOCUMENTATION: JOB ID: [id number] [employer]- All Rights Reserved Rev Reading location - IP/workstation name: [email or web address]
[2019-11-04] MEDS ORDERED: KETOROLAC TROMETHAMINE 60 MG/2 ML SDV IM ONE (15:18)
--- NOTE | 2019-11-04 15:23 | ER Document Report ---
ED General - General Chief Complaint: Abdominal Pain Stated Complaint: LOWER ABDOMINAL PAIN Time Seen by Provider: 11/04/19 10:38 Primary Care Provider: VERO JONES MD [ACTIVE PROVISIONAL STAFF] - Follow up as needed Mode of Arrival: Ambulatory TRAVEL OUTSIDE OF THE [place] IN LAST 30 DAYS: No - HPI Notes: Patient is a 24-year-old female who presents to the emergency department for evaluation of lower pelvic pain. Sharp and stabbing. Is been present for several weeks, but is been worse over the last several days. She states she felt a pop and it got worse yesterday. She has not had a menstrual period in the last 2 months. She does admit she is lost a significant amount of weight with diet and exercise. She has a history of trichomoniasis, but no other STDs. She denies any vaginal discharge, denies any high-risk sexual practices. She said no fevers or chills. She had some nausea, but admits to eating raw brownie last night, believes that that is the reason. Otherwise no urinary symptoms, normal bowel movements. - Related Data Allergies/Adverse Reactions: bupropion HCl [From Wellbutrin] Allergy (Verified 01/21/19 19:50) VOMITING divalproex sodium [From Depakote] Allergy (Verified 01/21/19 19:50) VOMITING haloperidol [From Haldol] Allergy (Verified 01/21/19 19:50) Distonic Reaction olanzapine [From Zyprexa] Allergy (Verified 01/21/19 19:50) Rash topiramate [From Topamax] Allergy (Verified 01/21/19 19:50) Speech problems, drooling Home Medications: None Past Medical History - General Information source: Patient - Social History Smoking Status: Current Every Day Smoker Chew tobacco use (# tins/day): No Frequency of alcohol use: None Drug Abuse: Marijuana Family History: CAD, DM Patient has homicidal ideation: No Pulmonary Medical History: Reports: Hx Asthma Endocrine Medical History: Reports: Hx Diabetes Mellitus Type 2 - Diet controlled currently Renal/ Medical History: Reports: Hx Kidney Stones, Hx Ovarian Cysts. Denies: Hx Peritoneal Dialysis Psychiatric Medical History: Reports: Hx Anxiety, Hx Bipolar Disorder, Hx Depression, Hx Personality Disorder, Hx Post Traumatic Stress Disorder Past Surgical History: Reports: Hx Section - 04/24/15, Hx Cholecystectomy, Hx Gynecologic Surgery - right ovary removed 09/03/13, Hx Tubal Ligation - Immunizations Immunizations up to date: Yes Hx Diphtheria, Pertussis, Tetanus Vaccination: Yes - unknown Review of Systems - Review of Systems Gastrointestinal: See HPI Female Genitourinary: See HPI -: Yes All other systems reviewed and negative Physical Exam - Vital signs Vitals: Temp Pulse Resp BP Pulse Ox 98.0 F 56 L 18 132/57 H 98 11/04/19 10:11/04/19 10:01 11/04/19 10:11/04/19 10:11/04/19 10:01 - Notes Notes: Vital signs reviewed, please refer to chart. Head is normocephalic, atraumatic. Pupils equal round, reactive to light. Neck is supple without meningismus. Heart is regular rate and rhythm. Lungs are clear to auscultation bilaterally. Abdomen is soft, mildly tender in the left pelvis without rebound or guarding, normoactive bowel sounds throughout. Extremities without cyanosis, clubbing. Posterior calves are nontender. Peripheral pulses are equal. Skin is warm and dry. Patient is awake, alert, neurological exam is nonfocal. Course - Re-evaluation Re-evalutation: 11/04/19 15:20 Patient presents to the emergency department for evaluation. She had laboratory investigations and imaging as ordered through triage. Imaging revealed no significant abnormality, her right ovary is surgically absent. She may have just significant pain and cramping secondary to anovulation. This is likely related to her weight loss. I explained her that she should follow-up with [facility]. She was administered Toradol 60 mg IM here. Her abdominal exam is tender but nonsurgical. She understands if she develops any worsening she needs to return. - Vital Signs Vital signs: Temp Pulse Resp BP Pulse Ox 98 F 56 L 18 132/57 H 98 11/04/19 10:37 11/04/19 10:11/04/19 10:11/04/19 10:01 11/04/19 10:01 - Laboratory Result Diagrams: 11/04/19 11:25 11/04/19 11:25 Laboratory results interpreted by me: 11/04/19 11/04/19 11:25 11:25 RDW 16.1 H Chloride 110 H - Diagnostic Test Radiology reviewed: Reports reviewed Radiology results interpreted by me: 11/04/19 15:20 Transvaginal US 11/04/19 10:38 IMPRESSION: NORMAL TRANSVAGINAL PELVIC ULTRASOUND. THE RIGHT OVARY IS SURG ICALLY ABSENT. THE LEFT OVARY IS UNREMARKABLE. Discharge - Discharge Clinical Impression: Pelvic pain Condition: Stable Disposition: HOME, SELF-CARE Instructions: Pelvic Pain ([facility]) Additional Instructions: Take Naprosyn as directed. You should follow-up with [facility] in 1 to 2 weeks. If you develop worsening or new concerning symptoms of any sort, please return immediately to the emergency department for evaluation. Referrals: VERO JONES MD [ACTIVE PROVISIONAL STAFF] - Follow up as needed
[2019-11-04 15:26] VITALS: BP 124/70
== END 2019-11-04 15:29 | disposition home or self-care (01) ==
LOC: ER 09:55
DX: R10.2 Pelvic and perineal pain (principal); R10.30 Lower abdominal pain, unspecified; F17.210 Nicotine dependence, cigarettes, uncomplicated; E11.9 Type 2 diabetes mellitus without complications; Z87.442 Personal history of urinary calculi; Z90.49 Acquired absence of other specified parts of digestive tract
CPT/HCPCS: 99284; 96372; 36415; 84703; 85025; 80053; 81001; 76830; 93976; J1885